=== PATIENT | male | born 1940 | race Caucasian/White ===

== ENCOUNTER 2017-08-23 12:40 | Outpatient (RCR) | payer MEDICARE, OTHER | END 2017-08-24 | disposition home or self-care (01) | LOC: ONC 12:40 | PROVIDERS: ATTEND Radiology Radiation Oncology | DX: Z51.0 Encounter for antineoplastic radiation therapy (principal); C61 Malignant neoplasm of prostate | CPT/HCPCS: 77300; 77301; 77334; 77336; 77338; 77385 ==

== ENCOUNTER 2017-10-16 12:34 | Outpatient (RCR) | payer MEDICARE, OTHER | END 2017-11-24 | disposition home or self-care (01) | LOC: ONC 12:34 | PROVIDERS: ATTEND Radiology Radiation Oncology | DX: Z51.0 Encounter for antineoplastic radiation therapy (principal); C61 Malignant neoplasm of prostate | CPT/HCPCS: 77307; 77334; 77336; 77385 ==

== ENCOUNTER 2019-02-15 12:18 | Emergency (ER) | payer MEDICARE, OTHER ==
[~2019-02-15] VITALS: Ht 175.3 cm; Wt 81.6 kg
--- NOTE | 2019-02-15 12:53 | ED GI ---
General Stated Complaint: VOMITING,DIARRHEA Source of Information: Patient History of Present Illness Date Seen by Provider: Feb 15, 2019 Time Seen by Provider: 12:35 Initial Comments 78-year-old male presents with 2 days of nausea and vomiting with a little bit of diarrhea. He denies abdominal pain. Denies any fevers or chills. He is able to tolerate liquids but reports he vomits up his food. He denies any constipation. Cough or other systemic complaints at this time Allergies and Home Medications Allergies Coded Allergies: No Known Drug Allergies (Unverified , 02/15/19) Patient Home Medication List Home Medication List Reviewed: Yes Review of Systems Review of Systems Constitutional: No chills, No dizziness, No fever EENTM: No Symptoms Reported Respiratory: Denies Cough, Denies Shortness of Air Cardiovascular: Denies Chest Pain, Denies Irregular Heart Rate Gastrointestinal: Denies Abdomen Distended, Denies Abdominal Pain; Diarrhea, Nausea, Vomiting Genitourinary: Denies Burning Musculoskeletal: no symptoms reported Skin: no symptoms reported Past Yponxqx-Qtbfau-Lmawou Hx Past Med/Social Hx: Reviewed Nursing Past Med/Soc Hx Patient Social History Recent Foreign Travel: No (N) Contact w/Someone Who Travel: No (N) Physical Exam Vital Signs Capillary Refill : Height/Weight/BMI Height: '" Weight: lbs. oz. kg; BMI Method: General Appearance: WD/WN, no apparent distress HEENT: normal ENT inspection Neck: non-tender Respiratory: chest non-tender, lungs clear, normal breath sounds Cardiovascular: regular rate, rhythm, no edema Gastrointestinal: non tender, soft Extremities: normal range of motion, non-tender Neurologic/Psychiatric: alert, normal mood/affect, oriented x 3 Progress/Results/Core Measures Results/Orders Lab Results Laboratory Tests Test 02/15/19 12:58 Range/Units White Blood Count 8.4 4.3-11.0 10^3/uL Red Blood Count 4.18 L 4.35-5.85 10^6/uL Hemoglobin 12.9 L 13.3-17.7 G/DL Hematocrit 38 L 40-54 % Mean Corpuscular Volume 92 80-99 FL Mean Corpuscular Hemoglobin 31 25-34 PG Mean Corpuscular Hemoglobin Concent 34 32-36 G/DL Red Cell Distribution Width 13.5 10.0-14.5 % Platelet Count 334 130-400 10^3/uL Mean Platelet Volume 9.5 7.4-10.4 FL Neutrophils (%) (Auto) 80 H 42-75 % Lymphocytes (%) (Auto) 10 L 12-44 % Monocytes (%) (Auto) 7 0-12 % Eosinophils (%) (Auto) 2 0-10 % Basophils (%) (Auto) 0 0-10 % Neutrophils # (Auto) 6.7 1.8-7.8 X 10^3 Lymphocytes # (Auto) 0.9 L 1.0-4.0 X 10^3 Monocytes # (Auto) 0.6 0.0-1.0 X 10^3 Eosinophils # (Auto) 0.2 0.0-0.3 10^3/uL Basophils # (Auto) 0.0 0.0-0.1 10^3/uL Sodium Level 143 135-145 MMOL/L Potassium Level 3.7 3.6-5.0 MMOL/L Chloride Level 98 98-107 MMOL/L Carbon Dioxide Level 24 21-32 MMOL/L Anion Gap 21 H 5-14 MMOL/L Blood Urea Nitrogen 47 H 7-18 MG/DL Creatinine 2.01 H 0.60-1.30 MG/DL Estimat Glomerular Filtration Rate 32 BUN/Creatinine Ratio 23 Glucose Level 114 H 70-105 MG/DL Calcium Level 9.3 8.5-10.1 MG/DL Corrected Calcium 9.2 8.5-10.1 MG/DL Total Bilirubin 0.4 0.1-1.0 MG/DL Aspartate Amino Transf (AST/SGOT) 25 5-34 U/L Alanine Aminotransferase (ALT/SGPT) 26 0-55 U/L Alkaline Phosphatase 83 40-136 U/L Total Protein 7.4 6.4-8.2 GM/DL Albumin 4.1 3.2-4.5 GM/DL Lipase 38 8-78 U/L Micro Results Microbiology 02/15/19 Influenza Types A,B Antigen (ESTRADA) - Final, Complete My Orders Orders - BERNARD QUINN DO Cbc With Automated Diff (02/15/19 12:45) Comprehensive Metabolic Panel (02/15/19 12:45) Lipase (02/15/19 12:45) Influenza A And B Antigens (02/15/19 12:45) Saline Lock/Iv-Start (02/15/19 12:45) Saline Lock/Iv-Start (02/15/19 13:06) Ns Iv 1000 Ml (Sodium Chloride 0.9%) (02/15/19 13:06) Ondansetron Injection (Zofran Injectio (02/15/19 13:15) Ct Abdomen/Pelvis Wo (02/15/19 13:41) Medications Given in ED Current Medications Medications Dose Ordered Sig/[place] Route Start Time Stop Time Status Last Admin Dose Admin Ondansetron HCl 4 mg ONCE ONCE IVP 02/15/19 13:15 02/15/19 13:16 DC 02/15/19 13:13 4 MG Progress Progress Note : Progress Note Reviewed labs and imaging results with patient. Patient was mildly dehydrated and received a liter of fluids and feeling better. Patient with CT that showed some gastric dryness. Discussed findings with him. Recommend a follow-up with his primary care physician in 3 days to ensure he is improving. He should use a clear liquid diet 24 hours and slowly advance diet. He will also be discharged with Zofran for nausea. Patient is discharged home in stable condition. Departure Impression Primary Impression: Gastroenteritis Additional Impressions: Nausea and vomiting Qualified Codes: R11.2 - Nausea with vomiting, unspecified Dehydration Disposition: HOME, SELF-CARE Condition: Stable Departure-Patient Inst. Decision time for Depature: 15:21 Referrals: ANGELA MARTINEZ MD (PCP/Family) Primary Care Physician follow up 2-3 days for recheck of symptoms Patient Instructions: Dehydration, Adult (DC), Gastritis (DC) Add. Discharge Instructions: Clear liquid diet for 24 hours then advance as tolerated. With her primary care physician in 2-3 days for continuation of care and recheck if symptoms Scripts Ondansetron (Ondansetron Odt) 4 Mg Tab.rapdis 4 MG PO Q6H PRN for NAUSEA/VOMITING, #20 TAB Prov: BERNARD QUINN DO 02/15/19 BERNARD QUINN DO Feb 15, 2019 12:53
[2019-02-15 13:06] LABS: WHITE BLOOD COUNT 8.4 10^3/uL (4.3-11.0)
[2019-02-15] MEDS ORDERED: NS IV 1000 ML 1,000 ML IV SCH (13:06)
[2019-02-15 13:07] LABS: BASOPHILS % (AUTO) 0 % (0-10); EOSINOPHILS # (AUTO) 0.2 10^3/uL (0.0-0.3); EOSINOPHILS % (AUTO) 2 % (0-10); HEMATOCRIT 38 % (40-54); HEMOGLOBIN 12.9 G/DL (13.3-17.7); LYMPHOCYTES # (AUTO) 0.9 X 10^3 (1.0-4.0); LYMPHOCYTES % (AUTO) 10 % (12-44); MEAN CORPUSCULAR HEMOGLOBIN 31 PG (25-34); MEAN CORPUSCULAR HGB CONC 34 G/DL (32-36); MEAN CORPUSCULAR VOLUME 92 FL (80-99); MEAN PLATELET VOLUME 9.5 FL (7.4-10.4); MONOCYTES # (AUTO) 0.6 X 10^3 (0.0-1.0); MONOCYTES % (AUTO) 7 % (0-12); NEUTROPHILS # (AUTO) 6.7 X 10^3 (1.8-7.8); NEUTROPHILS % (AUTO) 80 % (42-75); PLATELET COUNT 334 10^3/uL (130-400); RED CELL DISTRIBUTION WIDTH 13.5 % (10.0-14.5)
[2019-02-15] MEDS ORDERED: ONDANSETRON 4 MG/2 ML (SDV) Z0FRAN IVP ONE (13:15)
[2019-02-15 13:28] LABS: CALCIUM 9.3 MG/DL (8.5-10.1); CREATININE SERUM 2.01 MG/DL (0.60-1.30); POTASSIUM 3.7 MMOL/L (3.6-5.0)
[2019-02-15 13:29] LABS: ALBUMIN 4.1 GM/DL (3.2-4.5); BILIRUBIN,TOTAL 0.4 MG/DL (0.1-1.0); TOTAL PROTEIN 7.4 GM/DL (6.4-8.2)
--- NOTE | 2019-02-15 14:35 | Diagnostic Imaging Report ---
PROCEDURE: CT abdomen and pelvis without contrast. TECHNIQUE: Multiple contiguous axial images were obtained through the abdomen and pelvis without the use of intravenous contrast. Auto Exposure Controls were utilized during the CT exam to meet ALARA standards for radiation dose reduction. INDICATION: Nausea, vomiting, diarrhea. COMPARISON: None. FINDINGS: The heart is mildly enlarged. Lung bases are clear. The gallbladder is surgically absent. The liver, spleen, pancreas, adrenal glands are grossly unremarkable. Benign cysts are seen on the right kidney. There is a solid-appearing mass in the inferior pole of the left kidney and medial aspect measuring approximate 12 mm. Recommend postcontrast imaging to exclude neoplasm. This may be done on a nonemergent basis. There is no hydronephrosis or hydroureter. Atherosclerotic disease is seen throughout the abdominal aorta without aneurysm. The appendix is surgically absent. Otherwise, the course and caliber of the large and small bowel is normal. There is some nonspecific thickening of the gastric wall. This could represent gastritis or be secondary to underdistention. There is no inflammatory process. Distal ureters and urinary bladder are normal. There is mild prostate enlargement. Osseous structures are age-appropriate. IMPRESSION: 1. Nonspecific gastric wall thickening. Endoscopic evaluation may be of further value. 2. Questionable solid lesion on the inferior pole of the left kidney. Recommend postcontrast imaging on nonemergent basis. 3. Cardiac enlargement. 4. Surgically absent gallbladder and appendix. 5. Prostate enlargement. Dictated by: Dictated on workstation # [id number]
[2019-02-15] MEDS ORDERED: ONDA4TAB11 PO (15:20)
[2019-02-15 15:45] VITALS: BP 150/77
[2019-02-19] MEDS ORDERED: METO-370 PO (14:08)
[2019-02-19] MEDS ORDERED: LOSA100T57 PO (14:08)
== END 2019-02-15 15:45 | disposition home or self-care (01) ==
LOC: EDUNIT# 12:18 → ER FS 12:20
DX: K52.9 Noninfective gastroenteritis and colitis, unspecified (principal); E86.0 Dehydration
CPT/HCPCS: 36415; 74176; 80053; 83690; 85025; 87804; 96361; 96374

== ENCOUNTER 2019-02-17 15:58 | Inpatient (IN) | payer MEDICARE, OTHER ==
[~2019-02-17] VITALS: Ht 175.3 cm; Wt 86.2 kg
[~2019-02-17 15:58] MED LIST: ONDA4TAB11 PO
[2019-02-17 16:19] VITALS: BP 149/82
[2019-02-17 16:27] VITALS: BP_SYST 123; BP_SYST 135; BP_DIAS 66; BP_DIAS 83
--- NOTE | 2019-02-17 16:27 | ED General ---
General Chief Complaint: Trauma-Non Activation Stated Complaint: PT FELL, FACE LAC Nursing Triage Note: Patient reports falls and dizziness when moving from a sitting to standing position for 2 weeks. He reports nausea and vomiting over the weekend, states he was seen in this ED, then had a follow up appointment with his PCP today. He fell once while at the appointment, then again when he arrived at home. He reports pain in his right rib cage and right knee. Multiple shallow abrasions to face. Nursing Sepsis Screen: No Definite Risk History of Present Illness Date Seen by Provider: Feb 17, 2019 Time Seen by Provider: 16:05 Initial Comments Patient is a 78-year-old male with past medical history significant for high blood pressure and well-controlled seizures. He presents to the emergency department today complaining of a fall. The patient states he was walking towards his apartment complex when he began to medially felt lightheaded and fell striking his face on the ground. He did not have complete loss of consciousness. He denied palpitations or chest pain or shortness of breath prior to the incident. The patient states he has been falling frequently over the last 2 weeks. Symptoms started suddenly. He was evaluated in this emergency room a few days earlier for the same complaint and was discharged to home. He continued to fall so he was seen by his primary doctor, Dr. Martinez, earlier today. The patient states he was prescribed some unknown medication. He fell again on his way back home so he decided to return to the emergency room. He denies recent illness or fever. No cough. No chest pain, palpitations, shortness of breath. He does have a known prior history of seizures for which he takes Tegretol. His last seizure was over 12 years ago. Patient reports compliance with all medications. He does not use tobacco. He drinks wine occasionally. During the fall today, the patient did strike his face. He did not lose consciousness. He sustained some minor abrasions about the face. He is uncertain when his last tetanus shot was. Denies nausea or vomiting. No vision changes. Denies cervical neck tenderness. He is accompanied by his apartment pretty food service manager today. She has not witnessed the fall but did find him shortly after a fall and states he seemed confused for a period of a couple of minutes following the incident. It is uncertain if the patient is actually having seizures or not but it does not sound that he is having any prolonged post ictal period. Allergies and Home Medications Allergies Coded Allergies: No Known Drug Allergies (Unverified , 02/15/19) Home Medications Ondansetron 4 Mg Tab.rapdis, 4 MG PO Q6H PRN for NAUSEA/VOMITING Prescribed by: BERNARD QUINN on 02/15/19 1520 Patient Home Medication List Home Medication List Reviewed: Yes Review of Systems Review of Systems Constitutional: no symptoms reported, see HPI EENTM: no symptoms reported, other (abrasions to face documented above) Respiratory: no symptoms reported Cardiovascular: no symptoms reported Gastrointestinal: no symptoms reported Musculoskeletal: no symptoms reported Skin: no symptoms reported Psychiatric/Neurological: See HPI, Other (syncope) Hematologic/Lymphatic: No Symptoms Reported All Other Systems Reviewed Negative Unless Noted: Yes Past Ogbkzno-Bjrkyo-Qgeabi Hx Patient Social History 2nd Hand Smoke Exposure: No Recent Foreign Travel: No Contact w/Someone Who Travel: No Recent Infectious Disease Expo: No Physical Exam Vital Signs Vital Signs - First Documented 02/17/19 16:14 Temp 98.9 Pulse 79 Resp 18 B/P (MAP) 114/79 (91) Pulse Ox 94 O2 Delivery Room Air Capillary Refill : Less Than 3 Seconds Height, Weight, BMI Height: 5'9.00" Weight: 180lbs. oz. 81.866683wc; BMI Method:Stated General Appearance: No Apparent Distress, WD/WN HEENT: PERRL/EOMI, TMs Normal, Other (abrasions about the exterior side of the nose. No deviation of septum. No septal hematoma) Neck: Full Range of Motion, Normal Inspection, Non Tender, Supple Respiratory: Chest Non Tender, Lungs Clear, Normal Breath Sounds, No Accessory Muscle Use, No Respiratory Distress Cardiovascular: Regular Rate, Rhythm, Other (faint 4/6 systolic ejection murmur heard best at the left sternal border) Gastrointestinal: Normal Bowel Sounds, Soft Back: No Vertebral Tenderness Extremity: Normal Capillary Refill, Normal Inspection, Normal Range of Motion Neurologic/Psychiatric: Alert, Oriented x3, No Motor/Sensory Deficits, Normal Mood/Affect, security program manager II-XII Norm as Tested Skin: Normal Color Progress/Results/Core Measures Suspected Sepsis Recent Fever Within 48 Hours: No Infection Criteria Present: None New/Unexplained Altered Menta: No Sepsis Screen: No Definite Risk SIRS Temperature:98.9 Pulse: 79 Respiratory Rate: 18 Laboratory Tests 02/17/19 16:17: White Blood Count 8.6 Blood Pressure 114 /79 Mean: 91 Laboratory Tests 02/17/19 16:17: Creatinine 1.85H, Platelet Count 332 Results/Orders Lab Results Laboratory Tests Test 02/17/19 16:17 Range/Units White Blood Count 8.6 4.3-11.0 10^3/uL Red Blood Count 3.92 L 4.35-5.85 10^6/uL Hemoglobin 12.1 L 13.3-17.7 G/DL Hematocrit 36 L 40-54 % Mean Corpuscular Volume 91 80-99 FL Mean Corpuscular Hemoglobin 31 25-34 PG Mean Corpuscular Hemoglobin Concent 34 32-36 G/DL Red Cell Distribution Width 13.2 10.0-14.5 % Platelet Count 332 130-400 10^3/uL Mean Platelet Volume 9.7 7.4-10.4 FL Neutrophils (%) (Auto) 94 H 42-75 % Lymphocytes (%) (Auto) 7 L 12-44 % Monocytes (%) (Auto) 6 0-12 % Eosinophils (%) (Auto) 2 0-10 % Basophils (%) (Auto) 0 0-10 % Neutrophils # (Auto) 7.2 1.8-7.8 X 10^3 Lymphocytes # (Auto) 0.6 L 1.0-4.0 X 10^3 Monocytes # (Auto) 0.6 0.0-1.0 X 10^3 Eosinophils # (Auto) 0.2 0.0-0.3 10^3/uL Basophils # (Auto) 0.0 0.0-0.1 10^3/uL Neutrophils % (Manual) 80 % Lymphocytes % (Manual) 7 % Monocytes % (Manual) 5 % Eosinophils % (Manual) 2 % Basophils % (Manual) 1 % Band Neutrophils 5 % Blood Morphology Comment NORMAL Sodium Level 140 135-145 MMOL/L Potassium Level 3.4 L 3.6-5.0 MMOL/L Chloride Level 98 98-107 MMOL/L Carbon Dioxide Level 18 L 21-32 MMOL/L Anion Gap 24 H 5-14 MMOL/L Blood Urea Nitrogen 35 H 7-18 MG/DL Creatinine 1.85 H 0.60-1.30 MG/DL Estimat Glomerular Filtration Rate 35 BUN/Creatinine Ratio 19 Glucose Level 103 70-105 MG/DL Calcium Level 9.0 8.5-10.1 MG/DL Troponin T 43 H <=15 NG/L My Orders Orders - DEV MCCLAIN DO Ct Head/Cervical Spine Wo (02/17/19 16:02) Saline Lock/Iv-Start (02/17/19 16:17) Cbc And Manual Diff (02/17/19 16:17) Basic Metabolic Panel (02/17/19 16:17) Troponin T (02/17/19 16:17) Ekg Tracing (02/17/19 16:17) Urinalysis (02/17/19 16:17) Orthostatic Vital Signs (Adult (02/17/19 16:20) Dipht,Pertuss(Acell),Tet Adult (Boostrix (02/17/19 16:30) Carbamazepine (Tegretol) (02/17/19 16:17) Thyroid Stimulating Hormone (02/17/19 16:17) Ns Iv 1000 Ml (Sodium Chloride 0.9%) (02/17/19 17:00) Medications Given in ED Current Medications Medications Dose Ordered Sig/[place] Route Start Time Stop Time Status Last Admin Dose Admin Diphtheria/ Tetanus/Acell Pertussis 0.5 ml ONCE ONCE IM 02/17/19 16:30 02/17/19 16:31 DC 02/17/19 16:45 0.5 ML Vital Signs/I&O 02/17/19 02/17/19 02/17/19 02/17/19 16:14 16:19 16:19 16:27 Temp 98.9 98.9 Pulse 79 79 59 61 63 Resp 18 16 B/P (MAP) 114/79 (91) 114/79 (91) 149/82 (104) 135/83 (100) 123/66 (85) Pulse Ox 94 94 O2 Delivery Room Air Room Air Capillary Refill : Less Than 3 Seconds Blood Pressure Mean: 91 Progress Note : Time: 16:29 Progress Note Patient is seen and examined in the ER. He is uncertain when his last tetanus shot was. His neurologic exam is normal. Orthostatics are completed and the patient is not orthostatic. Unclear cause for his near syncopal episodes and falls. He has presented to care 3 times in the last week for this complaint. He does have a faint murmur on physical exam but otherwise unremarkable examination. Today, we will do EKG, basic labs, urinalysis. TSH and Tegretol levels will be collected but these will need to be sent to the main hospital laboratory. Did not anticipate discharge home for this patient. He should be admitted for observation on telemetry and possible echocardiogram and/or cardiology consultation. I fear he will sustain further injury from falling if he is discharged from the ER. 17:15: CT scan is returned. There are no acute findings. Patient was given tetanus shot in the ER. I did speak to Dr. Webber in [place] who agreed to accept this patient for inpatient evaluation. Plan is to transfer via EMS. Patient remained very stable during the ER course with normal range vital signs. Patient was agreeable to the plan of care including transfer. ECG Initial ECG Impression Date: Feb 17, 2019 Initial ECG Impression Time: 16:30 Initial ECG Rate: 59 Initial ECG Rhythm: S.Jd Initial ECG Intervals: Normal Initial ECG Impression: Normal Diagnostic Imaging Diagonstic Imaging: CT Comments INDICATION: Falls. COMPARISON: No prior studies are available for comparison. CT head: FINDINGS: Ventricles and sulci are appropriate for the patient's age. No sulcal effacement, midline shift, or hemorrhage is detected. Cisterns are patent. Visualized paranasal sinuses are clear. IMPRESSION: No acute intracranial process is detected. CT cervical spine: FINDINGS: Curvature and alignment is normal. There is degenerative disc disease at the C4-C5 and C5-C6 levels with disc space narrowing and marginal spurring. No fractures are seen. Prevertebral tissues are within normal limits. The odontoid is intact. IMPRESSION: Cervical spondylosis. No acute bony abnormality is detected. Departure Communication (Admissions) Time/Spoke to Admitting Phy: 16:35 Dr. Webber Impression Primary Impression: Recurrent syncope Disposition: XFER SHT-TRM HOSP Condition: Stable Admissions Decision to Admit Reason: Admit from ER (General) Decision to Admit/Date: Feb 17, 2019 Time/Decision to Admit Time: 17:14 Transfer Time Spoke to Accepting Phy: 16:35 (Dr. Webber) Transfer Time: 17:30 Method of Transfer: EMS Departure-Patient Inst. Referrals: ANGELA MARTINEZ MD (PCP/Family) Primary Care Physician DEV MCCLAIN DO Feb 17, 2019 16:27
[2019-02-17 16:28] LABS: BASOPHILS % (AUTO) 0 % (0-10); EOSINOPHILS # (AUTO) 0.2 10^3/uL (0.0-0.3); EOSINOPHILS % (AUTO) 2 % (0-10); HEMATOCRIT 36 % (40-54); HEMOGLOBIN 12.1 G/DL (13.3-17.7); LYMPHOCYTES # (AUTO) 0.6 X 10^3 (1.0-4.0); LYMPHOCYTES % (AUTO) 7 % (12-44); MEAN CORPUSCULAR HEMOGLOBIN 31 PG (25-34); MEAN CORPUSCULAR HGB CONC 34 G/DL (32-36); MEAN CORPUSCULAR VOLUME 91 FL (80-99); MEAN PLATELET VOLUME 9.7 FL (7.4-10.4); MONOCYTES # (AUTO) 0.6 X 10^3 (0.0-1.0); MONOCYTES % (AUTO) 6 % (0-12); NEUTROPHILS # (AUTO) 7.2 X 10^3 (1.8-7.8); NEUTROPHILS % (AUTO) 94 % (42-75); PLATELET COUNT 332 10^3/uL (130-400); RED CELL DISTRIBUTION WIDTH 13.2 % (10.0-14.5); WHITE BLOOD COUNT 8.6 10^3/uL (4.3-11.0)
[2019-02-17] MEDS ORDERED: TETANUS,DIPTH,PERTUSS P/F (BOOSTRIX) 0.5 ML VIAL IM ONE (16:30)
[2019-02-17 16:44] LABS: BAND NEUTROPHILS 5 %; BASOPHILS % (MANUAL) 1 %; EOSINOPHILS % (MANUAL) 2 %; LYMPHOCYTES % (MANUAL) 7 %; MONOCYTES % (MANUAL) 5 %; NEUTROPHILS % (MANUAL) 80 %; RBC MORPH NORMAL
[2019-02-17 16:45] LABS: CREATININE SERUM 1.85 MG/DL (0.60-1.30); POTASSIUM 3.4 MMOL/L (3.6-5.0)
[2019-02-17] MEDS ORDERED: NS IV 1000 ML 1,000 ML IV SCH (17:00)
--- NOTE | 2019-02-17 17:02 | Diagnostic Imaging Report ---
PROCEDURE: CT head and CT cervical spine without contrast. TECHNIQUE: Multiple contiguous axial images were obtained through the brain and cervical spine without the use of intravenous contrast. Sagittal and coronal reformations through the cervical spine were then performed. Auto Exposure Controls were utilized during the CT exam to meet ALARA standards for radiation dose reduction. INDICATION: Falls. COMPARISON: No prior studies are available for comparison. CT head: FINDINGS: Ventricles and sulci are appropriate for the patient's age. No sulcal effacement, midline shift, or hemorrhage is detected. Cisterns are patent. Visualized paranasal sinuses are clear. IMPRESSION: No acute intracranial process is detected. CT cervical spine: FINDINGS: Curvature and alignment is normal. There is degenerative disc disease at the C4-C5 and C5-C6 levels with disc space narrowing and marginal spurring. No fractures are seen. Prevertebral tissues are within normal limits. The odontoid is intact. IMPRESSION: Cervical spondylosis. No acute bony abnormality is detected. Dictated by: Dictated on workstation # [id number]
[2019-02-17] MEDS ORDERED: HEParin DRIP 25000 UNIT/500ML 500 ML IV ONE (17:17)
[2019-02-17] MEDS ORDERED: HEParin 1000 UNIT/ML (10ML VIAL) FOR BOLUS IV ONE (17:17)
[2019-02-17] MEDS ORDERED: ASPIRIN 81 MG CHEW (CHILDREN'S ASA) PO ONE (17:30)
[2019-02-17 17:43] LABS: PROTHROMBIN TIME PATIENT 13.2 SEC (12.2-14.7)
[2019-02-17 18:35] VITALS: BP 168/78
--- NOTE | 2019-02-17 18:40 | NUR ---
BERNARDA MUNOZ admitted to room 416-1, with an admitting diagnosis of RECURRENT SYNCOPE, on 02/17/19 from ED via , accompanied by STAFF.BERNARDA MUNOZ introduced to surroundings, call light, bed controls, phone, TV, temperature control, lights, meal times, smoking policy, visitor policy, side rail policy, bathrooms and showers. Patient Rights given to patient in the handbook. BERNARDA MUNOZ verbalizes understanding that [facility] is not responsible for the loss or damage to any personal effects or valuables that are kept in the patients possession during their hospitalization. PLANS OF CARE DISCUSSED WITH PT AND VERBALIZES UNDERSTANDING. BERNARDA MUNOZ verbalizes understanding of Interdisciplinary Patient Education. Patient and/or family were informed about the Rapid Response Team and its purpose.
[2019-02-17 18:45] VITALS: BP 168/78
[2019-02-17] MEDS ORDERED: CATHETER FLUSH 10 ML SYR IV PRN (19:00)
[2019-02-17 19:15] LABS: CARBAMAZEPINE (TEGRETOL) 11.6 UG/ML (4.0-12.0)
[2019-02-17] MEDS: NS IV 1000 ML 1,000 ML IV SCH (20:43)
[2019-02-17] MEDS: LABETALOL 200 MG (NORMODYNE) TAB PO SCH (20:43)
[2019-02-18 00:50] VITALS: BP 160/68
[2019-02-18 04:53] LABS: ALBUMIN 3.6 GM/DL (3.2-4.5); BILIRUBIN,TOTAL 0.3 MG/DL (0.1-1.0); CALCIUM 8.4 MG/DL (8.5-10.1); CREATININE SERUM 1.62 MG/DL (0.60-1.30); POTASSIUM 2.9 MMOL/L (3.6-5.0)
[2019-02-18 08:00] VITALS: BP 207/83
[2019-02-18] MEDS: LABETALOL 200 MG (NORMODYNE) TAB PO SCH (08:15)
[2019-02-18] MEDS: NS IV 1000 ML 1,000 ML IV SCH (08:15)
[2019-02-18] MEDS ORDERED: amLODIPine 5 MG (NORVASC) TAB PO SCH (09:00)
[2019-02-18] MEDS ORDERED: HYDROCHLOROTHIAZIDE 25 MG (HCTZ) TAB PO SCH (09:00)
[2019-02-18] MEDS ORDERED: AMLO10TA4 PO (09:35)
[2019-02-18] MEDS ORDERED: L.AC1CAP6 PO (09:35)
[2019-02-18] MEDS ORDERED: DOXA8TAB73 PO (09:35)
[2019-02-18] MEDS ORDERED: MULT-974 PO (09:35)
[2019-02-18] MEDS ORDERED: CYAN10006 PO (09:35)
[2019-02-18] MEDS ORDERED: DOXA2TAB2 PO (09:35)
[2019-02-18] MEDS ORDERED: CARB100T6 PO (09:35)
[2019-02-18] MEDS ORDERED: LABE200T7 PO (09:35)
[2019-02-18] MEDS ORDERED: CARB400T PO (09:35)
[2019-02-18] MEDS ORDERED: HYDR50TA3 PO (09:35)
--- NOTE | 2019-02-18 09:40 | NUR ---
SPOKE WITH THE PATIENT ABOUT HIS MEDICATIONS. HE LISTED WHAT HE IS TAKING AND THE STRENGTHS. I CALLED NANCY GARCIA TO VERIFY WHAT HAS BEEN FILLED RECENTLY. NANCY GARCIA FILLED: 3 DOXAZOSIN 2MG DAILY #100 (TAKES AT HS) 01-24-19 DOXAZOSIN 8MG DAILY #90 (TAKES AT HS) -02-10 AMLODIPINE 10MG DAILY #90 (TAKES IN THE EVENING) 12-13-18 HCTZ 50MG DAILY #90 11-15-18 LABETALOL 200MG BID #180 08-12-18 TEGRETOL 100MG CHEW DAILY #180 (TAKES AT NOON) HE ALSO STATES HE TAKES TEGRETOL 400MG BID, HE GETS THESE FROM [facility]. HE TAKES THE FOLLOWING OTC: MTV DAILY PROBIOTIC DAILY B12 AT NOON
--- NOTE | 2019-02-18 09:48 | Consultation-Cardiology ---
HPI-Cardiology Cardiology Consultation Date of Consultation 02/18/19 Date of Admission Time Seen by Provider: 08:20 Indication: Syncope HPI Patient is an 78 year old male with history of HTN, seizure disorder. Presented to the ER in [place] with complaints of syncope. Reports he was getting out of his car yesterday and walking to his apartment when he had syncopal episode. Denies any chest pain or dyspnea. Associated dizziness and lightheadedness lasting seconds prior to syncope. Reports has been having multiple syncopal episodes over the last month and over the past week has been having syncope once or twice per day. Episodes mainly occur while standing, but does report at least one syncopal episode while sitting in chair. Has history of seizure disorder and follows with neurology in [place]. States no recent seizure activity. Noted to be bradycardic in ER, was asymptomatic at the time. Troponin I negative. No other complaints at this time. Home Medications & Allergies Allergies: Coded Allergies: No Known Drug Allergies (Unverified , 02/15/19) Home Medication List Reviewed: Yes EAE-Oheosp-Fejnjf Hx Patient Social History Marital Status: Employed/Student: retired Alcohol Use: Regular Use Recreational Drug Use: No Smoking Status: Former Smoker 2nd Hand Smoke Exposure: No Recent Foreign Travel: No Recent Infectious Disease Expo: No Recent Hopitalizations: No Immunizations Up To Date Date of Influenza Vaccine: Dec 20, 2018 Past Medical History HTN Family Medical History Significant Family History: No Pertinent Family Hx Review of Systems Constitutional: No chills, No diaphoresis; dizziness, weakness EENTM: No hearing loss, No ear pain, No blurred vision, No double vision Respiratory: No cough, No dyspnea on exertion Cardiovascular: No chest pain, No edema, No palpitations; syncope Gastrointestinal: No abdominal pain, No constipation, No diarrhea Genitourinary: No dysuria, No frequency, No hematuria Musculoskeletal: No back pain, No joint pain Skin: No lesions, No rash Psychiatric/Neurological: Denies Anxiety, Denies Depressed Reviewed Test Results Reviewed Test Results Lab Laboratory Tests 02/17/19 16:17: White Blood Count 8.6, Red Blood Count 3.92L, Hemoglobin 12.1L, Hematocrit 36L, Mean Corpuscular Volume 91, Mean Corpuscular Hemoglobin 31, Mean Corpuscular Hemoglobin Concent 34, Red Cell Distribution Width 13.2, Platelet Count 332, Mean Platelet Volume 9.7, Neutrophils (%) (Auto) 94H, Lymphocytes (%) (Auto) 7L , Monocytes (%) (Auto) 6, Eosinophils (%) (Auto) 2, Basophils (%) (Auto) 0, Neutrophils # (Auto) 7.2, Lymphocytes # (Auto) 0.6L, Monocytes # (Auto) 0.6, Eosinophils # (Auto) 0.2, Basophils # (Auto) 0.0, Neutrophils % (Manual) 80, Lymphocytes % (Manual) 7, Monocytes % (Manual) 5, Eosinophils % (Manual) 2, Basophils % (Manual) 1, Band Neutrophils 5, Blood Morphology Comment NORMAL, Prothrombin Time 13.2, INR Comment 1.0, Activated Partial Thromboplast Time 30, Sodium Level 140, Potassium Level 3.4L, Chloride Level 98, Carbon Dioxide Level 18L, Anion Gap 24H, Blood Urea Nitrogen 35H, Creatinine 1.85H, Estimat Glomerular Filtration Rate 35, BUN/Creatinine Ratio 19, Glucose Level 103, Calcium Level 9.0, Troponin T 43H, Thyroid Stimulating Hormone (TSH) 1.66, Carbamazepine (Tegretol) Level 11.6 02/17/19 20:25: Troponin I < 0.028 02/18/19 04:00: Sodium Level 143, Potassium Level 2.9L, Chloride Level 106, Carbon Dioxide Level 23, Anion Gap 14, Blood Urea Nitrogen 29H, Creatinine 1.62H, Estimat Glomerular Filtration Rate 41, BUN/Creatinine Ratio 18, Glucose Level 93, Calcium Level 8.4L, Troponin I < 0.028, Corrected Calcium 8.7, Total Bilirubin 0.3, Aspartate Amino Transf (AST/SGOT) 31, Alanine Aminotransferase (ALT/SGPT) 41, Alkaline Phosphatase 76, Total Protein 6.0L, Albumin 3.6 ECG Impression ECG Initial ECG Rhythm: S.Jd Physical Exam Vital Signs Vital Signs - First Documented 02/17/19 16:14 Temp 98.9 Pulse 79 Resp 18 B/P (MAP) 114/79 (91) Pulse Ox 94 O2 Delivery Room Air Capillary Refill : Less Than 3 Seconds Height, Weight, BMI Height: 5'9.00" Weight: 190lbs. 0.7oz. [id number]; 28.1 BMI Method:Stated General Appearance: No Apparent Distress, WD/WN HEENT: PERRL/EOMI, Normal ENT Inspection Neck: Full Range of Motion, Normal Inspection, Non Tender, Supple, Carotid Bruit Respiratory: Chest Non Tender, Lungs Clear, Normal Breath Sounds, No Accessory Muscle Use, No Respiratory Distress Cardiovascular: No Edema, No Gallop, No JVD, Bradycardia, Systolic Murmur Gastrointestinal: Non Tender, Soft Rectal: Deferred Back: No CVA Tenderness Extremity: Non Tender, No Calf Tenderness Neurologic/Psychiatric: Alert, Oriented x3, doctor of podiatric medicine II-XII Norm as Tested A/P-Cardiology Admission Diagnosis Syncope Sinus bradycardia HTN Systolic murmur Assessment/Plan Syncope- unknown etiology, most probably hypotensive episode. Has been having multiple syncopal episodes over the past month. Noted to be bradycardic, asymptomatic at this time. I will place patient on telemetry. Further evaluation with 2D Echo, carotid duplex. Continue to monitor. Sinus bradycardia- on labetolol, I am stopping labetalol and starting Toprol-XL 50 mg daily and monitoring tolerance and response Hypertension, I will discontinue amlodipine and hydrochlorothiazide and use losartan 50 mg daily and evaluate tolerance and response. Systolic murmur- further evaluation with 2D Echo History of Seizure disorder- follows with Neurologist in [place]. Maintained on Tegretol as outpatient Hypokalemia- replace and monitor. Recent gastroenteritis History of cholecystectomy, appendectomy. Mildly elevated Troponin T, Troponin I negative. Thank you for allowing us to participate in the management of Mr. Tran. This is Ria Lima PA-C as a scribe for Dr. Shultz. Patient was seen and evaluated with Ria, in summary this is an 78 years old gentleman with history of hypertension, on multiple medication, had history of seizure disorder, had multiple syncopal episodes. Most probably hypotensive episodes. Occurred mainly while he standing up. He is in sinus bradycardia, on examination lungs were clear to auscultation heart is bradycardic with systolic murmur at the left sternal border. I discussed the management plan with Ria, agree with the current scribed note, interviewed the patient and examined him. I will discontinue labetalol, amlodipine and hydrochlorothiazide and I am starting him on Toprol-XL 50 mg daily and losartan 50 mg daily and monitor tolerance and response. Avoid amlodipine and hydrochlorothiazide. Replace potassium. Monitor electrolytes. Has history of seizure disorder which will be monitored Clinical Quality Measures DVT/VTE Risk/Contraindication: Risk Factor Score Per Nursin RFS Level Per Nursing on Admit: 2=Moderate RIA TELLEZ Feb 18, 2019 09:48 YAJAIRA SHULTZ MD Feb 18, 2019 16:16
[2019-02-18 12:00] VITALS: BP 190/80
[2019-02-18] MEDS ORDERED: KCL 20 MEQ TAB (K-DUR) PO NR (12:00)
--- NOTE | 2019-02-18 12:02 | History & Physical-Hospitalist ---
History of Present Illness HPI/Chief Complaint The patient is an 78-year-old white male sent from the [place] via [facility] emergency room after repeated episodes of near syncope and falls. He had been seen at the ER in [place] once prior to the date of admission. On the date of admission he was also seen by his primary doctor, Dr. Muñoz, he has had a seizure disorder and states that he has not had a seizure in 12-15 years. When asked about the nature of his seizures he denied any previous tonic clonic Events or postictal states. He had also fallen several times which were not reported. He states that to his recollection he had always fallen within 20 feet before standing up. He did not report any events while in bed or sitting. His is in a fpc in [place] because of advanced dementia. His primary activities were visiting her. He has been able to drive without event. On the last fall causing him to return to the emergency room he fell on concrete and suffered multiple abrasions his forehead. CT head and neck and other x-rays were performed at the emergency room. He also has been hypertensive for 20 or more years. Date Seen 02/18/19 Time Seen by a Provider: 11:55 Attending Physician Krys Webber MD PCP Alfredo Muñoz MD Referring Physician Date of Admission Feb 17, 2019 at 16:50 Home Medications & Allergies Home Medications Reviewed patient Home Medication Reconciliation performed by pharmacy medication reconciliations records technician and/or nursing. Patients Allergies have been reviewed. Allergies Allergies Coded Allergies No Known Drug Allergies (Unverified02/15/19) Past Dqtslkq-Wkpxos-Pramzn Hx Past Med/Social Hx: Reviewed Nursing Past Med/Soc Hx Patient Social History Marrital Status: Employed/Student: retired Alcohol Use: Regular Use Number of Drinks Today: 1 Alcohol Beverage of Choice: Wine Recreational Drug Use: No Smoking Status: Former Smoker 2nd Hand Smoke Exposure: No Recent Foreign Travel: No Contact w/other who traveled: No Recent Hopitalizations: No Recent Infectious Disease Expo: No Immunizations Up To Date Date of Influenza Vaccine: Dec 20, 2018 Seasonal Allergies Seasonal Allergies: No Past Medical History Surgeries: Appendectomy, Gallbladder Cardiac: Hypertension Neurological: Seizure Disorder History of Blood Disorders: No Family History No Pertinent Family Hx Review of Systems Constitutional: see HPI EENTM: no symptoms reported Respiratory: no symptoms reported Cardiovascular: no symptoms reported Genitourinary: no symptoms reported Musculoskeletal: see HPI Skin: see HPI Psychiatric/Neurological: No Symptoms Reported Physical Exam Physical Exam Vital Signs Vital Signs - First Documented 02/17/19 16:14 Temp 98.9 Pulse 79 Resp 18 B/P (MAP) 114/79 (91) Pulse Ox 94 O2 Delivery Room Air Capillary Refill : Less Than 3 Seconds Height, Weight, BMI Height: 5'9.00" Weight: 190lbs. 0.7oz. 86.045465dt; 28.1 BMI Method:Stated General Appearance: No Apparent Distress, WD/WN Eyes: Bilateral Eye Normal Inspection HEENT: Normal ENT Inspection Neck: Normal Inspection Respiratory: Chest Non Tender, Lungs Clear, Normal Breath Sounds, No Accessory Muscle Use, No Respiratory Distress Cardiovascular: Regular Rate, Rhythm, No Edema, No Gallop, No JVD, No Murmur, Normal Peripheral Pulses Gastrointestinal: Normal Bowel Sounds, No Organomegaly, No Pulsatile Mass, Non Tender, Soft Back: Normal Inspection Extremity: Normal Capillary Refill, Normal Inspection, Normal Range of Motion, Non Tender, No Calf Tenderness, No Pedal Edema Neurologic/Psychiatric: Alert, Oriented x3, No Motor/Sensory Deficits, Normal Mood/Affect Skin: Normal Color, Warm/Dry Lymphatic: No Adenopathy Results Results/Procedures Labs Laboratory Tests 02/17/19 16:17 02/18/19 04:00 Patient resulted labs reviewed. Assessment/Plan Admission Diagnosis Syncope. 2.multiple falls. 3.hypertension. 4.history of seizure disorder. 5.possible orthostatic hypotension Admission Status: Observation Assessment and Plan Orthostatics. Replace potassium. View telemetry's. Cardiology consult. Clinical Quality Measures DVT/VTE Risk/Contraindication: Risk Factor Score Per Nursin RFS Level Per Nursing on Admit: 2=Moderate REFUGIO WALTERS MD Feb 18, 2019 12:02
[2019-02-18] MEDS ORDERED: carBAMazepine 100 MG (TEGretol) CHEW PO SCH (12:15)
[2019-02-18] MEDS: POTASSIUM CL 10MEQ/50ML IVPB 50 ML IV SCH ×4 (15:32→17:48)
--- NOTE | 2019-02-18 15:57 | Diagnostic Imaging Report ---
PROCEDURE: US carotid duplex bilateral. TECHNIQUE: Multiple Real-time grayscale images were obtained over the carotid arteries in various projections bilaterally. Additional spectral analysis and color Doppler duplex images were also obtained. INDICATION: Syncope and carotid bruit. FINDINGS: There is mild plaquing in the proximal right ICA as well as the bilateral proximal ECAs. No significant velocity elevation is seen. No high-grade stenosis or occlusion is identified. Both vertebral arteries demonstrate antegrade flow. IMPRESSION: No evidence of a hemodynamically significant stenosis. MEASUREMENTS: Parameters based on the consensus panel Douglass-Scale and Doppler ultrasound criteria published September 2003, Radiology, Volume 229. DOPPLER (peak systolic velocity M/S Right Left CCA 64 66.5 ICA Proximal 107 73.9 ICA Mid 62.1 71.4 ICA Distal 79.3 49.7 RATIO 1.67 1.11 ECA 89.9 93.8 VERT 37.2 32.9 Dictated by: Dictated on workstation # [id number]
[2019-02-18 15:59] VITALS: BP 197/88
[2019-02-18] MEDS: KCL 20 MEQ TAB (K-DUR) PO SCH (17:48)
[2019-02-18] MEDS ORDERED: amLODIPine 10 MG (NORVASC) TAB PO SCH (18:00)
[2019-02-18 19:39] VITALS: BP 192/93
[2019-02-18] MEDS: carBAMazepine 200 MG (TEGretol) TAB PO SCH (20:29)
[2019-02-18] MEDS ORDERED: doxAzosin 2 MG (CARDURA) TAB PO SCH (21:00)
[2019-02-18] MEDS ORDERED: LABETALOL 200 MG (NORMODYNE) TAB PO SCH (21:00)
[2019-02-18] MEDS ORDERED: doxAzosin 4 MG (CARDURA) TAB PO SCH (21:00)
[2019-02-19] VITALS: BP_SYST 158; BP_SYST 184; BP_SYST 192; BP_SYST 198; BP_DIAS 67; BP_DIAS 78; BP_DIAS 85; BP_DIAS 87
[2019-02-19] MEDS: NS IV 1000 ML 1,000 ML IV SCH ×2 (02:46→10:52)
[2019-02-19 04:00] VITALS: BP 188/86
[2019-02-19 05:58] LABS: HEMOGLOBIN 11.8 G/DL (13.3-17.7); MEAN PLATELET VOLUME 9.9 FL (7.4-10.4); RED CELL DISTRIBUTION WIDTH 13.6 % (10.0-14.5); WHITE BLOOD COUNT 8.5 10^3/uL (4.3-11.0)
[2019-02-19] MEDS: KCL 20 MEQ TAB (K-DUR) PO SCH (06:17)
[2019-02-19 06:27] LABS: ALBUMIN 3.6 GM/DL (3.2-4.5); BILIRUBIN,TOTAL 0.3 MG/DL (0.1-1.0); CALCIUM 8.8 MG/DL (8.5-10.1); CREATININE SERUM 1.24 MG/DL (0.60-1.30); MAGNESIUM 1.8 MG/DL (1.8-2.4); POTASSIUM 3.6 MMOL/L (3.6-5.0); TOTAL PROTEIN 6.5 GM/DL (6.4-8.2)
[2019-02-19] MEDS ORDERED: MULTIVIT W/MINERALS TAB (THERAGRAN M) PO SCH (07:00)
--- NOTE | 2019-02-19 07:53 | Cardiology Progress Note ---
Subjective Date Seen by Provider: Feb 19, 2019 Time Seen by Provider: 07:51 Subjective/Events-last exam patient is laying down in bed, still having pain from multiple falls and injury to his chest. Review of Systems General: No Chills, No Night Sweats, No Fatigue, No Malaise, No Appetite, No Other HEENT: No Head Aches, No Visual Changes, No Eye Pain, No Ear Pain, No Dysphasia , No Sinus Congestion, No Post Nasal Drip, No Sore Throat, No Other Pulmonary: No Dyspnea, No Cough, No Pleuritic Chest Pain, No Other Cardiovascular: Chest Pain; No: Palpitations, Orthopnea, Paroxysmal Noc. Dyspnea, Edema, Lt Headedness, Other Objective-Cardiology Exam Last Set of Vital Signs Vital Signs 02/19/19 04:00 Temp 98.6 Pulse 60 Resp 16 B/P (MAP) 188/86 (120) Pulse Ox 95 O2 Delivery Room Air Capillary Refill : Less Than 3 Seconds I&O Intake and Output 02/19/19 00:00 Intake Total 975 ml Output Total 1450 ml Balance -475 ml Intake Oral 775 ml IV Total 200 ml Output Urine Total 1450 ml # Voids 1 General: Alert, Oriented X3, Cooperative HEENT: Atraumatic, PERRLA Neck: Supple, No JVD, No Thyromegaly Lungs: Clear to Auscultation, Normal Air Movement Heart: Regular Rate, Normal S1, Normal S2, No Murmurs Abdomen: Normal Bowel Sounds, Soft, No Tenderness, No Hepatosplenomegaly, No Masses Extremities: No Clubbing, No Cyanosis, No Edema, Normal Pulses, No Tenderness/ Swelling Skin: No Rashes, No Breakdown, No Significant Lesion Neuro: Normal Gait, Normal Speech, Strength at 5/5 X4 Ext, Normal Tone, Sensation Intact Psych/Mental Status: Mental Status NL, Mood NL Results Lab Laboratory Tests 02/19/19 05:35 A/P-Cardiology Admission Diagnosis Syncope Sinus bradycardia HTN Systolic murmur Assessment/Plan Syncope, most probably orthostatic hypotension, he has baseline severe hypertension. I adjusted his medication, echocardiogram showed diastolic dysfunction with normal left ventricular systolic function, continue to monitor. Sinus bradycardia, better at this time. Continue to monitor Labile hypertension, poorly controlled. I stopped amlodipine, hydrochlorothiazide and labetalol and started him on Toprol-XL 50 mg daily and I am increasing losartan to 100 mg daily. I will start her on physical therapy and evaluate tolerance and response. I explained to the patient that the target blood pressure for him will be systolic between 150 and 160 to avoid syncope at this point History of Seizure disorder- follows with Neurologist in [place]. Maintained on Tegretol as outpatient Hypokalemia- replace and monitor. Recent gastroenteritis History of cholecystectomy, appendectomy. Clinical Quality Measures DVT/VTE Risk/Contraindication: Risk Factor Score Per Nursin RFS Level Per Nursing on Admit: 2=Moderate YAJAIRA WHITE MD Feb 19, 2019 07:53
[2019-02-19 08:00] VITALS: BP 197/83
[2019-02-19] MEDS ORDERED: LOSARTAN 100 MG (COZAAR) TABLET PO SCH (09:00)
[2019-02-19] MEDS ORDERED: LOSARTAN 50 MG (COZAAR) TAB PO SCH (09:00)
[2019-02-19] MEDS ORDERED: meTOproloL SUCCINATE 50 MG (TOPROL XL) TAB PO SCH (09:00)
[2019-02-19] MEDS ORDERED: HYDROCHLOROTHIAZIDE 25 MG (HCTZ) TAB PO SCH (09:00)
[2019-02-19] MEDS: carBAMazepine 200 MG (TEGretol) TAB PO SCH (09:27)
[2019-02-19] MEDS ORDERED: PATIENT MAY USE OWN MED,SINGLE MED PO SCH (09:30)
[2019-02-19] MEDS: CARBAMAZEPINE 400 MG PO SCH (09:44)
--- NOTE | 2019-02-19 10:24 | Physical Therapy Evaluation ---
PT Evaluation-General Medical Diagnosis Admission Date Feb 17, 2019 at 16:50 Medical Diagnosis: recurrent syncope Onset Date: Feb 17, 2019 Therapy Diagnosis Therapy Diagnosis: debility Height/Weight Height (Feet): 5 Height (Inches): 9.00 Weight (Pounds): 190 Weight (Ounces): 0.7 Precautions Precautions/Isolations: Seizure, Fall Prevention, Standard Precautions Weight Bear Status Right Lower Extremity: Right Weight Bearing/Tolerated Left Lower Extremity: Left Weight Bearing/Tolerated Referral Physician: Lexii Reason for Referral: Evaluation/Treatment Medical History Pertinent Medical History: HTN Additional Medical History seizures Current History ED x 2 secondary to multiple falls secondary to dizziness and with sit to stand Reviewed History: Yes Social History Home: Apartment Current Living Status: Alone Prior/Core FIM Prior Level of Function Therapy Code Descriptions/Definitions Functional [place] Measure: 0=Not Assessed/NA 4=Minimal Assistance 1=Total Assistance 5=Supervision or Setup 2=Maximal Assistance 6=Modified [place] 3=Moderate Assistance 7=Complete [place] Therapy Quality Codes: 6 Independent with activity with or without an assistive device 5 Patient requires set up or clean up by helper. Patient completes activity by themselves 4 Supervision or touching assist (CGA). [place] provide cues , steadying assist 3 The helper provides less than half the effort to complete the activity 2 The helper provides more than half the effort to complete the activity 1 Dependent. The helper does all the effort to complete an activity 7 Patient refused to complete or attempt activity 9 The patient did not perform the activity before the current illness or injury 88 Not attempted due to Medical conditions or safety concerns Functional Abilities and Goals: Independent: Patient completed the activities by him/herself, with or without an assistive device, with no assistance from a helper. Needed Some Help: Patient needed partial assistance from another person to complete activities. Dependent: A helper completed the activities for the patient. Unknown: Not Applicable: Bed Mobility: 7 Transfers (B,C,W/C) (FIM): 7 Gait: 7 Indoor Mobility (Ambulation): Independent Stairs: Independent Prior Devices Use: None PT Evaluation-Current Subjective Patient is very agreeable to participate with PT. Pain Numeric Pain Scale: 0-No Pain Location: No Pain Reported Objective Patient Orientation: Normal For Age Problem Solving: Good Attachments: IV ROM/Strength ROM Lower Extremities bilateral LE WFL Strength Lower Extremities 4+/5 grossly bilateral LE Integumentary/Posture Integumentary refer to nursing notes Bowel Incontinence: No Bladder Incontinence: No Posture slightly kyphotic Neuromuscular (Tone, Coordination, Reflexes) grossly intact Sensory Vision: Functional Hearing: Functional Sensation Right Lower Extremit: Intact Sensation Left Lower Extremity: Intact Transfers Therapy Code Descriptions/Definitions Functional [place] Measure: 0=Not Assessed/NA 4=Minimal Assistance 1=Total Assistance 5=Supervision or Setup 2=Maximal Assistance 6=Modified [place] 3=Moderate Assistance 7=Complete [place] Transfers (B, C, W/C) (FIM): 6 Scootin Supine to/from Sit: 6 Sit to/from Stand: 6 Gait Mode of Locomotion: Walk Anticipated Mode of Locomotion: Walk Gait (FIM): 6 Distance (FIM): 3=150 ft Distance: 600' Gait Level of Assist: 6 Gait Assistive Device: FWW Comments/Gait Description safe and functional with no deviation Balance Sitting Static: Normal Sitting Dynamic: Normal Standing Static: Normal Standing Dynamic: Normal Assessment/Needs 78 y.o. male, will be seen short term by skilled PT to address functional mobility to ensure safe return to home at maximum LOF. Rehab Potential: Good PT Short Term Goals Short Term Goals Time Frame: Feb 25, 2019 Transfers (B,C,W/C) (FIM): 6 Gait (FIM): 6 Distance (FIM): 3=150 ft Gait Distance Comment: 800' Gait Level of Assist: 6 Gait Assistive Device: None, FWW PT Plan Treatment/Plan Treatment Plan: Continue Plan of Care Treatment Plan: Education, Functional Activity Ariel, Functional Strength, Gait , Safety, Therapeutic Exercise, Transfers Treatment Duration: Feb 25, 2019 Frequency: 6 times per week Estimated Hrs Per Day: .25 hour per day Patient and/or Family Agrees t: Yes Discharge Recommendations Therapy D/C Recommendations: Home Independently Time/GCodes Time In: 912 Time Out: 924 Total Billed Treatment Time: 12 Total Billed Treatment 1 visit EVLowC 12 min CHRISTINA MORALES PT Feb 19, 2019 10:23
[2019-02-19 12:00] VITALS: BP 160/70
[2019-02-19] MEDS ORDERED: carBAMazepine 100 MG (TEGretol) CHEW PO SCH (12:00)
[2019-02-19] MEDS ORDERED: METO-370 PO (14:08)
[2019-02-19] MEDS ORDERED: LOSA100T57 PO (14:08)
--- NOTE | 2019-02-19 14:09 | Discharge Inst-Simple/Standard ---
Discharge Inst-Standard Discharge Medications New, Converted or Re-Newed RX: Transmitted to Pharmacy Patient Instructions/Follow Up Plan of Care/Instructions/FU: Please continue to take your medications as written and please follow up with Dr Shultz and your PCP Dr Muñoz to follow up this hospital stay. Activity as Tolerated: Yes Discharge Diet: No Restrictions Return to The Hospital For: Chest pain, shortness of breath, light headedness, syncope, if you feel you are getting worse. MARCELLUS STOUT MD Feb 19, 2019 14:09
--- NOTE | 2019-02-19 14:11 | Discharge Summary-Hospitalist ---
Diagnosis/Chief Complaint Date of Admission Feb 17, 2019 at 16:50 Date of Discharge Discharge Date: Feb 19, 2019 Admission Diagnosis Syncope. 2.multiple falls. 3.hypertension. 4.history of seizure disorder. 5.possible orthostatic hypotension Discharge Summary Discharge Physical Exam Allergies: Coded Allergies: No Known Drug Allergies (Unverified , 02/15/19) Vitals & I&Os Vital Signs Date Time Temp Pulse Resp B/P (MAP) Pulse Ox O2 Delivery O2 Flow Rate FiO2 02/19/19 08:00 96.5 57 18 197/83 (121) 97 Room Air Hospital Course Labs (last 24 hrs) Laboratory Tests 02/19/19 05:35: White Blood Count 8.5, Red Blood Count 3.71L, Hemoglobin 11.8L, Hematocrit 34L, Mean Corpuscular Volume 91, Mean Corpuscular Hemoglobin 32, Mean Corpuscular Hemoglobin Concent 35, Red Cell Distribution Width 13.6, Platelet Count 282, Mean Platelet Volume 9.9, Sodium Level 140, Potassium Level 3.6, Chloride Level 108H, Carbon Dioxide Level 24, Anion Gap 8, Blood Urea Nitrogen 23H, Creatinine 1.24, Estimat Glomerular Filtration Rate 56, BUN/Creatinine Ratio 19, Glucose Level 96, Calcium Level 8.8, Corrected Calcium 9.1, Magnesium Level 1.8, Total Bilirubin 0.3, Aspartate Amino Transf (AST/SGOT) 30, Alanine Aminotransferase ( ALT/SGPT) 36, Alkaline Phosphatase 84, Total Protein 6.5, Albumin 3.6 Patient resulted labs reviewed. Discharge Home Medications: Active Scripts Active Losartan Potassium 100 Mg Tablet 100 Mg PO DAILY Metoprolol Succinate 50 Mg Tab.er.24h 50 Mg PO DAILY Reported Doxazosin Mesylate 2 Mg Tablet 2 Mg PO HS TAKES ALONG WITH 8MG TABLET FOR A TOTAL DOSE OF 10MG Doxazosin Mesylate 8 Mg Tablet 8 Mg PO HS TAKES ALONG WITH 2MG TABLET FOR A TOTAL DOSE OF 10MG Norvasc (Amlodipine Besylate) 10 Mg Tablet 10 Mg PO 1800 Hydrochlorothiazide 50 Mg Tablet 50 Mg PO DAILY Labetalol HCl 200 Mg Tablet 200 Mg PO BID Carbamazepine 100 Mg Tab.chew 100 Mg PO 1200 Tegretol Xr (Carbamazepine) 400 Mg Tab.er.12h 400 Mg PO BID Vitamin B-12 (Cyanocobalamin (Vitamin B-12)) 1,000 Mcg Tablet 1,000 Mcg PO 1200 Probiotic (L.acidoph & Paracasei,B.lactis) 1 Each Capsule 1 Cap PO DAILY Multi-Vitamin Daily (Multivitamin) 1 Each Tablet 1 Tab PO DAILY Instructions to patient/family Please see electronic discharge instructions given to patient. Clinical Quality Measures DVT/VTE Risk/Contraindication: Risk Factor Score Per Nursin RFS Level Per Nursing on Admit: 2=Moderate MARCELLUS STOUT MD Feb 19, 2019 14:11
--- NOTE | 2019-02-19 15:00 | NUR ---
Report received from Lizabeth SEQUEIRA, will continue to monitor.
[2019-02-19 15:36] VITALS: BP 160/70
--- NOTE | 2019-02-19 17:06 | NUR ---
Pt chose [facility] as the DME in [place] to provide his front wheel walker. Faxed physician's order and script, Pt was going to pick it up on his way home.
== END 2019-02-19 15:36 | disposition home or self-care (01) | DRG 312 ==
LOC: EDUNIT# 15:58 → ER FS 16:00 → 4TH 16:50
PROVIDERS: ADMIT Family Medicine; ATTEND Family Medicine
DX: I95.1 Orthostatic hypotension (principal); G40.909 Epilepsy, unspecified, not intractable, without status epilepticus; R79.89 Other specified abnormal findings of blood chemistry; I10 Essential (primary) hypertension; R00.1 Bradycardia, unspecified; R01.1 Cardiac murmur, unspecified; E87.6 Hypokalemia; R07.81 Pleurodynia; M25.561 Pain in right knee; R29.6 Repeated falls; I08.0 Rheumatic disorders of both mitral and aortic valves; S00.81XA Abrasion of other part of head, initial encounter; Z87.891 Personal history of nicotine dependence; Z87.19 Personal history of other diseases of the digestive system; W18.39XA Other fall on same level, initial encounter; Y92.008 Other place in unspecified non-institutional (private) residence as the place of occurrence of the external cause
CPT/HCPCS: 36415; 70450; 72125; 80048; 80053; 80156; 83735; 84443; 84484; 85007; 85027; 85610; 85730; 90471; 90715; 93306; 93880; 96361; 96374

== ENCOUNTER 2019-03-16 17:21 | Emergency (ER) | payer MEDICARE, OTHER ==
[~2019-03-16] VITALS: Ht 172.7 cm; Wt 81.6 kg
[~2019-03-16 17:21] MED LIST changes: +AMLO10TA4 PO; +CARB100T6 PO; +CARB400T PO; +CYAN10006 PO; +DOXA2TAB2 PO; +DOXA8TAB73 PO; +HYDR50TA3 PO; +L.AC1CAP6 PO; +LABE200T7 PO; +LOSA100T57 PO; +METO-370 PO; +MULT-974 PO
[2019-03-16] MEDS ORDERED: KETOROLAC 30 MG/ML VIAL ONE (18:19)
--- NOTE | 2019-03-16 18:27 | ED Abdominal Pain ---
General Chief Complaint: Abdominal/GI Problems Stated Complaint: RT SIDE ABD PAIN Source of Information: Patient Exam Limitations: No Limitations History of Present Illness Date Seen by Provider: Mar 16, 2019 Time Seen by Provider: 17:57 Initial Comments Patient is a pleasant gentleman who comes in on his own recognizance known to Dr. Martinez with a chief complaint of about 2-3 days right lower quadrant abdominal pain worse with movement. He says he has not had a bowel movement for the past for 5 days. He has a history of chronic constipation but does not take anything for it. We concerned as he was going to check on his who lives in the assisted today and he wanted to make sure he didn't have something contagious that might catch with the assisted patrons. He denies any black tarry stools, blood in the stool. He had a colonoscopy about [address] Martinez which was negative and has decided not to continue screening colonoscopies. He is not having any nausea diarrhea vomiting chest pain shortness of breath cough chills or fever that he knows of. He has not taken anything for the pain. He says he takes his blood pressure medicine metoprolol as prescribed however he was recently taken off the losartan. He takes probiotics routinely. He takes his Tegretol as prescribed for his history of seizure disorder. He denies the use of opiates or mu agonists. He's had a few lipomas off of his chest as well as his gallbladder and appendix surgically removed. He denies any polyps or history of diverticula on colonoscopy in the past. Allergies and Home Medications Allergies Coded Allergies: No Known Drug Allergies (Unverified , 02/15/19) Home Medications Carbamazepine 400 Mg Tab.er.12h, 400 MG PO BID, (Reported) Carbamazepine 100 Mg Tab.chew, 100 MG PO 1200, (Reported) Cyanocobalamin (Vitamin B-12) 1,000 Mcg Tablet, 1,000 MCG PO 1200, (Reported) Doxazosin Mesylate 8 Mg Tablet, 8 MG PO HS, (Reported) TAKES ALONG WITH 2MG TABLET FOR A TOTAL DOSE OF 10MG Doxazosin Mesylate 2 Mg Tablet, 2 MG PO HS, (Reported) TAKES ALONG WITH 8MG TABLET FOR A TOTAL DOSE OF 10MG L.acidoph & Paracasei,B.lactis 1 Each Capsule, 1 CAP PO DAILY, (Reported) Multivitamin 1 Each Tablet, 1 TAB PO DAILY, (Reported) Patient Home Medication List Home Medication List Reviewed: Yes Review of Systems Review of Systems Constitutional: No chills, No fever, No malaise, No weakness EENTM: No Double Vision, No Eye Tearing Respiratory: Denies Cough, Denies Shortness of Air Cardiovascular: Denies Chest Pain, Denies Edema Gastrointestinal: Constipated; Denies Diarrhea, Denies Nausea, Denies Poor Fluid Intake Genitourinary: Denies Burning, Denies Discharge Musculoskeletal: No back pain, No joint pain Skin: No pruritus, No rash Psychiatric/Neurological: Denies Headache, Denies Numbness Past Lqpdhtl-Amlkqd-Borhzk Hx Patient Social History Alcohol Use: Occasionally Uses Alcohol Beverage of Choice: Wine Recreational Drug Use: No Smoking Status: Never a Smoker 2nd Hand Smoke Exposure: No Recent Foreign Travel: No Contact w/Someone Who Travel: No Recent Hopitalizations: No Immunizations Up To Date Date of Influenza Vaccine: Dec 20, 2018 Seasonal Allergies Seasonal Allergies: No Past Medical History Surgeries: Yes Appendectomy, Gallbladder Respiratory: No Cardiac: Yes Hypertension Neurological: Yes Seizure Disorder Genitourinary: No Gastrointestinal: No Musculoskeletal: No Endocrine: No HEENT: No Cancer: No Psychosocial: No Integumentary: No Blood Disorders: No Family Medical History No Pertinent Family Hx Physical Exam Vital Signs Vital Signs - First Documented 03/16/19 18:13 Temp 97.1 Pulse 86 Resp 22 B/P (MAP) 147/63 (91) Pulse Ox 94 O2 Delivery Room Air Capillary Refill : Height/Weight/BMI Height: 5'9.00" Weight: 190lbs. 0.7oz. 86.288554wn; 28.1 BMI Method:Stated General Appearance: WD/WN, no apparent distress HEENT: PERRL/EOMI, pharynx normal Respiratory: no respiratory distress, no accessory muscle use Cardiovascular: regular rate, rhythm, no edema Gastrointestinal: normal bowel sounds (quiescent), soft, no organomegaly, tenderness (right lower quadrant but no tenderness over McBurney's point, rebound tenderness, psoas signs, evidence of mesenteric signs) Progress/Results/Core Measures Results/Orders Lab Results Laboratory Tests Test 03/16/19 18:13 Range/Units White Blood Count 11.5 H 4.3-11.0 10^3/uL Red Blood Count 3.66 L 4.35-5.85 10^6/uL Hemoglobin 11.5 L 13.3-17.7 G/DL Hematocrit 34 L 40-54 % Mean Corpuscular Volume 92 80-99 FL Mean Corpuscular Hemoglobin 31 25-34 PG Mean Corpuscular Hemoglobin Concent 34 32-36 G/DL Red Cell Distribution Width 13.2 10.0-14.5 % Platelet Count 298 130-400 10^3/uL Mean Platelet Volume 9.8 7.4-10.4 FL Neutrophils (%) (Auto) 84 H 42-75 % Lymphocytes (%) (Auto) 6 L 12-44 % Monocytes (%) (Auto) 8 0-12 % Eosinophils (%) (Auto) 1 0-10 % Basophils (%) (Auto) 0 0-10 % Neutrophils # (Auto) 9.7 H 1.8-7.8 X 10^3 Lymphocytes # (Auto) 0.7 L 1.0-4.0 X 10^3 Monocytes # (Auto) 1.0 0.0-1.0 X 10^3 Eosinophils # (Auto) 0.1 0.0-0.3 10^3/uL Basophils # (Auto) 0.0 0.0-0.1 10^3/uL Neutrophils % (Manual) 80 % Lymphocytes % (Manual) 8 % Monocytes % (Manual) 6 % Eosinophils % (Manual) 2 % Band Neutrophils 4 % Sodium Level 143 135-145 MMOL/L Potassium Level 3.4 L 3.6-5.0 MMOL/L Chloride Level 100 98-107 MMOL/L Carbon Dioxide Level 36 H 21-32 MMOL/L Anion Gap 7 5-14 MMOL/L Blood Urea Nitrogen 24 H 7-18 MG/DL Creatinine 1.63 H 0.60-1.30 MG/DL Estimat Glomerular Filtration Rate 41 BUN/Creatinine Ratio 15 Glucose Level 142 H 70-105 MG/DL Calcium Level 9.4 8.5-10.1 MG/DL Corrected Calcium 9.4 8.5-10.1 MG/DL Total Bilirubin 0.2 0.1-1.0 MG/DL Aspartate Amino Transf (AST/SGOT) 20 5-34 U/L Alanine Aminotransferase (ALT/SGPT) 19 0-55 U/L Alkaline Phosphatase 83 40-136 U/L Total Protein 7.2 6.4-8.2 GM/DL Albumin 4.0 3.2-4.5 GM/DL My Orders Orders - TITO CASTELLANOS Cbc With Automated Diff (03/16/19 18:18) Comprehensive Metabolic Panel (03/16/19 18:18) Ua Culture If Indicated (03/16/19 18:18) Ketorolac Injection (Toradol Injection) (03/16/19 18:30) Ketorolac Injection (Toradol Injection) (03/16/19 18:19) Manual Differential (03/16/19 18:13) Ct Abdomen/Pelvis W (03/16/19 19:16) Ed Iv/Invasive Line Start (03/16/19 19:16) Ns Iv 1000 Ml (Sodium Chloride 0.9%) (03/16/19 19:16) Iohexol Injection (Omnipaque 350 Mg/Ml 1 (03/16/19 19:30) Received Contrast (Hold Metformin- Contr (03/16/19 19:30) Sodium Chloride Flush (Catheter Flush Sy (03/16/19 19:30) Ns (Ivpb) (Sodium Chloride 0.9% Ivpb Bag (03/16/19 19:30) Ed Iv/Invasive Line Start (03/16/19 19:27) Lactated Ringers (Lr 1000 Ml Iv Solution (03/16/19 19:27) Medications Given in ED Current Medications Medications Dose Ordered Sig/[place] Route Start Time Stop Time Status Last Admin Dose Admin Iohexol 100 ml ONCE ONCE IV 03/16/19 19:30 03/16/19 19:31 DC 03/16/19 19:49 100 ML Ketorolac Tromethamine 30 mg ONCE ONCE IVP 03/16/19 18:30 03/16/19 18:31 DC 03/16/19 18:23 30 MG Sodium Chloride 10 ml NEEDED PRN IV 03/16/19 19:30 03/16/19 19:50 10 ML Sodium Chloride 100 ml ONCE ONCE IV 03/16/19 19:30 03/16/19 19:31 DC 03/16/19 19:50 100 ML Vital Signs/I&O 03/16/19 18:13 Temp 97.1 Pulse 86 Resp 22 B/P (MAP) 147/63 (91) Pulse Ox 94 O2 Delivery Room Air Progress Progress Note #1: Time: 18:26 Progress Note Except for his elevated blood pressure he does not have septic vital signs. His abdomen is nonacute and his demeanor is relaxed. My plan would be to obtain some basic labs and give him a dose of Toradol. If there is any evidence of inflammation, infection or if his pain is not adequately controlled with Toradol and we would complete a CT of his belly. Otherwise a plain film should reveal the constipation that is probably the source of his discomfort. Differential includes diverticulitis, colitis, abdominal wall tenderness. No hernia evidence on examination. Progress Note #2: Time: 19:17 Progress Note The patient's pain has not really changed. He is declining any opiates for the pain at this time. We'll going obtain a CT with contrast and give him a liter of saline. Diagnostic Imaging Diagonstic Imaging: CT (with contrast) Plain Films/CT/US/NM/MRI: abdomen, pelvis Comments [place] stool in the colon. Previous appendectomy and cholecystectomy seen. No evidence of inflammation or acute obstruction. Simple cysts seen on bilateral kidneys. [facility] [place], [place] NAME: BERNARDA MUNOZ [facility] REC#: [id number] PT STATUS: REG ER : 1940 PHYSICIAN: TITO CASTELLANOS MD ADMIT DATE: 03/16/19/ER FS Draft Date of Exam:03/16/19 CT ABDOMEN/PELVIS W PROCEDURE: CT abdomen and pelvis with contrast. TECHNIQUE: Multiple contiguous axial images were obtained through the abdomen and pelvis after administration of intravenous contrast. Auto Exposure Controls were utilized during the CT exam to meet ALARA standards for radiation dose reduction. INDICATION: Right lower quadrant pain with no bowel movements. History of prostate cancer. COMPARISON: Comparison is made with a prior CT from February 15, 2019. FINDINGS: The lung bases demonstrate some minimal dependent atelectasis but otherwise are clear. There is no focal consolidation. There is no pleural or pericardial effusion. Cardiomegaly with left ventricular and left atrial enlargement is present. There is no pericardial effusion. There is a tiny hiatal hernia. The liver demonstrates no evidence of a focal intrahepatic abnormality. The portal veins are patent. The patient is status post cholecystectomy. There is some mild post-cholecystectomy biliary prominence which is within normal limits for post-cholecystectomy state. Spleen demonstrates no focal abnormality. The pancreas is unremarkable. There is no ductal dilatation. There is no adrenal mass. The kidneys demonstrate multiple bilateral renal cysts. The previously described lesion along the medial and inferior left kidney demonstrates no enhancement. The left kidney enhances normally. 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 The small and large bowel appear normal in caliber without evidence of obstruction. There is no focal abnormal bowel thickening. There is a lobzbkea-ra-gfhxs degree of stool demonstrated throughout the colon. The appendix is surgically absent. There is no free air, free fluid, or evidence of abscess. The prostate is enlarged. The urinary bladder is nondistended. There are stereotactic markers in the prostate. There are no pathologically enlarged abdominal or pelvic lymph nodes demonstrated. There are atherosclerotic calcifications present within a normal caliber aorta. Advanced multilevel degenerative disc disease and facet arthropathy are present. There are no findings of an acute osseous injury or suspicious lytic or blastic lesion. IMPRESSION: 1. Abnormal lack of enhancement of the inferior aspect of the right kidney. 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 There is flow within the main renal artery. There is moderate atherosclerotic disease at its origin. There is no definitive accessory renal artery evident. 2. There is no hydronephrosis. The left kidney enhances normally. 3. Bilateral renal cysts. There is no solid renal mass evident. 4. Previous cholecystectomy and appendectomy. There are stereotactic markers within an enlarged prostate. 5. No bowel obstruction. There is, however, a rutgtbcn-tx-mzrum degree of stool throughout the colon. 6. No free air, free fluid, abscess, or pathologic adenopathy. 7. Advanced degenerative features throughout the spine without suspicious lytic or blastic lesion. Dictated on workstation # [id number] Dict: 03/16/192000 Trans: 03/16/192014 [id number] Interpreted by: ZACKERY OLIVAREZ MD Electronically signed by: Reviewed: Reviewed by Me Departure Impression Primary Impression: Constipation Qualified Codes: K59.00 - Constipation, unspecified Disposition: 01 HOME, SELF-CARE Condition: Stable Departure-Patient Inst. Decision time for Depature: 20:30 Referrals: ANGELA MARTINEZ MD (PCP/Family) Primary Care Physician Patient Instructions: Constipation, Adult (DC) Add. Discharge Instructions: Continue to drink plenty of fluids and once or twice a day and one capful of MiraLAX/polyethylene glycol to 6-8 ounces of fluid of your choice until you have completely cleaned out the colon. You may also use suppositories and/or enemas as necessary. Suggest a Fleet enema daily for one to 2 days to help get things moving. If you're having difficulty follow-up with your primary care doctor for further evaluation and management. If you start to have fever, vomiting, or severe pain not treated by Tylenol, ibuprofen or clearing out your colon then return to the nearest ER for further evaluation. All discharge instructions reviewed with patient and/or family. Voiced understanding. Scripts Polyethylene Glycol 3350 (Miralax) 17 Gm Powd.pack 17 GM PO BID PRN for 7 Days, #1 EACH 0 Refills Prov: TITO CASTELLANOS 03/16/19 TITO CASTELLANOS Mar 16, 2019 18:27
[2019-03-16] MEDS ORDERED: KETOROLAC 30 MG/ML VIAL IVP ONE (18:30)
[2019-03-16 18:46] LABS: HEMATOCRIT 34 % (40-54); HEMOGLOBIN 11.5 G/DL (13.3-17.7); MEAN CORPUSCULAR HEMOGLOBIN 31 PG (25-34); MEAN CORPUSCULAR HGB CONC 34 G/DL (32-36); MEAN CORPUSCULAR VOLUME 92 FL (80-99); RED CELL DISTRIBUTION WIDTH 13.2 % (10.0-14.5); WHITE BLOOD COUNT 11.5 10^3/uL (4.3-11.0)
[2019-03-16 18:47] LABS: BASOPHILS % (AUTO) 0 % (0-10); EOSINOPHILS # (AUTO) 0.1 10^3/uL (0.0-0.3); EOSINOPHILS % (AUTO) 1 % (0-10); LYMPHOCYTES # (AUTO) 0.7 X 10^3 (1.0-4.0); LYMPHOCYTES % (AUTO) 6 % (12-44); MEAN PLATELET VOLUME 9.8 FL (7.4-10.4); MONOCYTES % (AUTO) 8 % (0-12); NEUTROPHILS # (AUTO) 9.7 X 10^3 (1.8-7.8); NEUTROPHILS % (AUTO) 84 % (42-75); PLATELET COUNT 298 10^3/uL (130-400)
[2019-03-16 18:49] LABS: BAND NEUTROPHILS 4 %; EOSINOPHILS % (MANUAL) 2 %; LYMPHOCYTES % (MANUAL) 8 %; MONOCYTES % (MANUAL) 6 %; NEUTROPHILS % (MANUAL) 80 %
[2019-03-16] MEDS ORDERED: NS IV 1000 ML 1,000 ML IV SCH (19:16)
[2019-03-16 19:19] LABS: BILIRUBIN,TOTAL 0.2 MG/DL (0.1-1.0); CALCIUM 9.4 MG/DL (8.5-10.1); CREATININE SERUM 1.63 MG/DL (0.60-1.30); POTASSIUM 3.4 MMOL/L (3.6-5.0); TOTAL PROTEIN 7.2 GM/DL (6.4-8.2)
[2019-03-16] MEDS ORDERED: LACTATED RINGERS 1,000 ML IV ONE (19:27)
[2019-03-16] MEDS ORDERED: CATHETER FLUSH 10 ML SYR IV PRN (19:30)
[2019-03-16] MEDS ORDERED: NS 100 ML (IVPB) BAG IV ONE (19:30)
[2019-03-16] MEDS ORDERED: IOHEXOL 350 MG/ML 100 ML (OMNIPAQUE 350) VIAL IV ONE (19:30)
[2019-03-16] MEDS ORDERED: HOLD METFORMIN - RECEIVED CONTRAST 20 ML VIAL IV SCH (19:30)
--- NOTE | 2019-03-16 20:15 | Diagnostic Imaging Report ---
PROCEDURE: CT abdomen and pelvis with contrast. TECHNIQUE: Multiple contiguous axial images were obtained through the abdomen and pelvis after administration of intravenous contrast. Auto Exposure Controls were utilized during the CT exam to meet ALARA standards for radiation dose reduction. INDICATION: Right lower quadrant pain with no bowel movements. History of prostate cancer. COMPARISON: Comparison is made with a prior CT from February 15, 2019. FINDINGS: The lung bases demonstrate some minimal dependent atelectasis but otherwise are clear. There is no focal consolidation. There is no pleural or pericardial effusion. Cardiomegaly with left ventricular and left atrial enlargement is present. There is no pericardial effusion. There is a tiny hiatal hernia. The liver demonstrates no evidence of a focal intrahepatic abnormality. The portal veins are patent. The patient is status post cholecystectomy. There is some mild post-cholecystectomy biliary prominence which is within normal limits for post-cholecystectomy state. Spleen demonstrates no focal abnormality. The pancreas is unremarkable. There is no ductal dilatation. There is no adrenal mass. The kidneys demonstrate multiple bilateral renal cysts. The previously described lesion along the medial and inferior left kidney demonstrates no enhancement. The left kidney enhances normally. 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 The small and large bowel appear normal in caliber without evidence of obstruction. There is no focal abnormal bowel thickening. There is a nwqnaiiv-tu-temct degree of stool demonstrated throughout the colon. The appendix is surgically absent. There is no free air, free fluid, or evidence of abscess. The prostate is enlarged. The urinary bladder is nondistended. There are stereotactic markers in the prostate. There are no pathologically enlarged abdominal or pelvic lymph nodes demonstrated. There are atherosclerotic calcifications present within a normal caliber aorta. Advanced multilevel degenerative disc disease and facet arthropathy are present. There are no findings of an acute osseous injury or suspicious lytic or blastic lesion. IMPRESSION: 1. Abnormal lack of enhancement of the inferior aspect of the right kidney. 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 There is flow within the main renal artery. There is moderate atherosclerotic disease at its origin. There is no definitive accessory renal artery evident. 2. There is no hydronephrosis. The left kidney enhances normally. 3. Bilateral renal cysts. There is no solid renal mass evident. 4. Previous cholecystectomy and appendectomy. There are stereotactic markers within an enlarged prostate. 5. No bowel obstruction. There is, however, a xduneuei-ls-mqrdj degree of stool throughout the colon. 6. No free air, free fluid, abscess, or pathologic adenopathy. 7. Advanced degenerative features throughout the spine without suspicious lytic or blastic lesion. Dictated by: Dictated on workstation # [id number]
[2019-03-16] MEDS ORDERED: POLY17PO6 PO (20:32)
[2019-03-16 20:53] VITALS: BP 170/89
== END 2019-03-16 20:53 | disposition home or self-care (01) ==
LOC: EDUNIT# 17:21 → ER FS 17:22
DX: K59.00 Constipation, unspecified (principal); G40.909 Epilepsy, unspecified, not intractable, without status epilepticus; I10 Essential (primary) hypertension; Z87.19 Personal history of other diseases of the digestive system; Z90.49 Acquired absence of other specified parts of digestive tract
CPT/HCPCS: 36415; 74177; 80053; 85007; 85027

== ENCOUNTER 2019-10-25 19:10 | Emergency (ER) | payer MEDICARE, OTHER ==
[~2019-10-25] VITALS: Ht 175 cm; Wt 85.0 kg
[~2019-10-25 19:10] MED LIST changes: +CYAN-41 PO; -CYAN10006 PO; +POLY17PO6 PO
[2019-10-25] MEDS ORDERED: LACTATED RINGERS 1,000 ML IV ONE (19:26)
[2019-10-25] MEDS ORDERED: ONDANSETRON 4 MG/2 ML (SDV) Z0FRAN IVP ONE (19:30)
--- NOTE | 2019-10-25 19:32 | ED GI ---
General Chief Complaint: Abdominal/GI Problems Stated Complaint: NAUSEA/VOMITTING Source of Information: Patient Exam Limitations: No Limitations History of Present Illness Date Seen by Provider: Oct 25, 2019 Time Seen by Provider: 19:15 Initial Comments Patient presents to ER by private conveyance with a neighbor and chief complaint that today he started having some nausea vomiting and loose watery diarrhea without blood in stool or emesis. He has had his gallbladder and appendix out historically been no recent surgeries. No scopes no history of diverticulitis. No trauma fevers chills or sweats. No chest pain shortness of breath or cough. He recently put his in a fpc and has been visiting her and has multiple sick contacts there. He is up-to-date on his vaccinations including flu vaccination. He has not taken anything for the symptoms today. He is not having any abdominal pain. He says occasionally get a small amount of pain across the middle but is very mild and short-lived. He denies dysuria Allergies and Home Medications Allergies Coded Allergies: No Known Drug Allergies (Unverified , 02/15/19) Home Medications Carbamazepine 400 Mg Tab.er.12h, 400 MG PO BID, (Reported) Carbamazepine 100 Mg Tab.chew, 100 MG PO 1200, (Reported) Cyanocobalamin (Vitamin B-12) 1,000 Mcg Tablet, 1,000 MCG PO 1200, (Reported) Doxazosin Mesylate 8 Mg Tablet, 8 MG PO HS, (Reported) TAKES ALONG WITH 2MG TABLET FOR A TOTAL DOSE OF 10MG Doxazosin Mesylate 2 Mg Tablet, 2 MG PO HS, (Reported) TAKES ALONG WITH 8MG TABLET FOR A TOTAL DOSE OF 10MG L.acidoph & Paracasei,B.lactis 1 Each Capsule, 1 CAP PO DAILY, (Reported) Multivitamin 1 Each Tablet, 1 TAB PO DAILY, (Reported) Ondansetron 4 Mg Tab.rapdis, 4 MG PO Q6H PRN for NAUSEA/VOMITING Prescribed by: TITO CASTELLANOS on 10/25/192002 Polyethylene Glycol 3350 17 Gm Powd.pack, 17 GM PO BID PRN Prescribed by: TITO CASTELLANOS on 03/16/192031 Patient Home Medication List Home Medication List Reviewed: Yes Review of Systems Review of Systems Constitutional: No chills, No fever, No malaise EENTM: No Blurred Vision, No Double Vision Respiratory: Denies Cough, Denies Shortness of Air Cardiovascular: Denies Chest Pain, Denies Edema Gastrointestinal: See HPI; Denies Abdomen Distended, Denies Abdominal Pain, Denies Blood Streaked Stools, Denies Constipated; Diarrhea, Nausea, Poor Fluid Intake, Vomiting Genitourinary: Denies Burning, Denies Discharge Musculoskeletal: No back pain, No joint pain Skin: No pruritus, No rash Psychiatric/Neurological: Denies Headache, Denies Numbness All Other Systems Reviewed Negative Unless Noted: Yes Past Qgenwxi-Fibnpw-Svbteg Hx Patient Social History Alcohol Use: Regular Use Alcohol Beverage of Choice: Wine (1/day) Recreational Drug Use: No Smoking Status: Never a Smoker 2nd Hand Smoke Exposure: No Recent Foreign Travel: No Contact w/Someone Who Travel: No Recent Hopitalizations: No Immunizations Up To Date Date of Influenza Vaccine: Dec 20, 2018 Seasonal Allergies Seasonal Allergies: No Past Medical History Surgeries: Yes Appendectomy, Gallbladder Respiratory: No Cardiac: Yes Hypertension Neurological: Yes Seizure Disorder Genitourinary: No Gastrointestinal: No Musculoskeletal: No Endocrine: No HEENT: No Cancer: No Psychosocial: No Integumentary: No Blood Disorders: No Family Medical History No Pertinent Family Hx Physical Exam Vital Signs Vital Signs - First Documented 10/25/19 19:29 Temp 37.2 Pulse 81 Resp 15 B/P (MAP) 166/80 (108) Pulse Ox 95 O2 Delivery Room Air Capillary Refill : Height/Weight/BMI Height: 5'8.00" Weight: 180lbs. 0oz. 81.303806df; 28.1 BMI Method:Stated General Appearance: WD/WN, no apparent distress HEENT: PERRL/EOMI, pharynx normal (oropharynx mucosa mildly dry) Neck: full range of motion, supple, normal inspection Respiratory: lungs clear, normal breath sounds, no respiratory distress, no accessory muscle use Cardiovascular: normal peripheral pulses, regular rate, rhythm; No tachycardia Peripheral Pulses: 2+ Dorsalis Pedis (R), 2+ Left Dors-Pedis (L) Gastrointestinal: normal bowel sounds, non tender, soft, no organomegaly Extremities: normal range of motion, normal capillary refill Neurologic/Psychiatric: alert, normal mood/affect, oriented x 3 Skin: normal color, warm/dry Progress/Results/Core Measures Results/Orders Lab Results Laboratory Tests Test 10/25/19 19:15 10/25/19 19:30 Range/Units Urine Color YELLOW Urine Clarity CLEAR Urine pH 6.5 5-9 Urine Specific Buckley 1.025 H 1.016-1.022 Urine Protein 2+ H NEGATIVE Urine Glucose (UA) NEGATIVE NEGATIVE Urine Ketones NEGATIVE NEGATIVE Urine Nitrite NEGATIVE NEGATIVE Urine Bilirubin NEGATIVE NEGATIVE Urine Urobilinogen 0.2 < = 1.0 MG/DL Urine Leukocyte Esterase NEGATIVE NEGATIVE Urine RBC (Auto) NEGATIVE NEGATIVE Urine RBC NONE /HPF Urine WBC NONE /HPF Urine Crystals NONE /LPF Urine Bacteria NEGATIVE /HPF Urine Casts NONE /LPF Urine Mucus MODERATE H /LPF Urine Culture Indicated NO White Blood Count 10.6 4.3-11.0 10^3/uL Red Blood Count 3.95 L 4.35-5.85 10^6/uL Hemoglobin 12.1 L 13.3-17.7 G/DL Hematocrit 37 L 40-54 % Mean Corpuscular Volume 93 80-99 FL Mean Corpuscular Hemoglobin 31 25-34 PG Mean Corpuscular Hemoglobin Concent 33 32-36 G/DL Red Cell Distribution Width 13.7 10.0-14.5 % Platelet Count 350 130-400 10^3/uL Mean Platelet Volume 9.1 7.4-10.4 FL Neutrophils (%) (Auto) 92 H 42-75 % Lymphocytes (%) (Auto) 4 L 12-44 % Monocytes (%) (Auto) 4 0-12 % Eosinophils (%) (Auto) 0 0-10 % Basophils (%) (Auto) 0 0-10 % Neutrophils # (Auto) 9.8 H 1.8-7.8 X 10^3 Lymphocytes # (Auto) 0.4 L 1.0-4.0 X 10^3 Monocytes # (Auto) 0.4 0.0-1.0 X 10^3 Eosinophils # (Auto) 0.0 0.0-0.3 10^3/uL Basophils # (Auto) 0.0 0.0-0.1 10^3/uL Neutrophils % (Manual) 95 % Lymphocytes % (Manual) 2 % Monocytes % (Manual) 2 % Reactive Lymphocytes 1 % Poikilocytosis SLIGHT Microcytosis SLIGHT Sodium Level 141 135-145 MMOL/L Potassium Level 3.4 L 3.6-5.0 MMOL/L Chloride Level 100 98-107 MMOL/L Carbon Dioxide Level 27 21-32 MMOL/L Anion Gap 14 5-14 MMOL/L Blood Urea Nitrogen 24 H 7-18 MG/DL Creatinine 1.41 H 0.60-1.30 MG/DL Estimat Glomerular Filtration Rate 48 BUN/Creatinine Ratio 17 Glucose Level 128 H 70-105 MG/DL Calcium Level 9.3 8.5-10.1 MG/DL Corrected Calcium 9.1 8.5-10.1 MG/DL Total Bilirubin 0.3 0.1-1.0 MG/DL Aspartate Amino Transf (AST/SGOT) 19 5-34 U/L Alanine Aminotransferase (ALT/SGPT) 18 0-55 U/L Alkaline Phosphatase 62 40-136 U/L Pro-B-Type Natriuretic Peptide 1418.0 H <75.0 PG/ML Total Protein 7.5 6.4-8.2 GM/DL Albumin 4.2 3.2-4.5 GM/DL Lipase 36 8-78 U/L My Orders Orders - TITO CASTELLANOS Ua Culture If Indicated (10/25/19 19:26) Cbc With Automated Diff (10/25/19 19:26) Comprehensive Metabolic Panel (10/25/19 19:26) Probnp Fs (10/25/19 19:) Lipase (10/25/19 19:26) Ed Iv/Invasive Line Start (10/25/19 19:26) Lactated Ringers (Lr 1000 Ml Iv Solution (10/25/19 19:26) Ondansetron Injection (Zofran Injectio (10/25/19 19:30) Manual Differential (10/25/19 19:30) Medications Given in ED Current Medications Medications Dose Ordered Sig/[place] Route Start Time Stop Time Status Last Admin Dose Admin Lactated Ringer's 1,000 ml @ 0 mls/hr Q0M ONCE IV 10/25/19 19:26 10/25/19 19:29 DC 10/25/19 19:44 0 MLS/HR Ondansetron HCl 8 mg ONCE ONCE IVP 10/25/19 19:30 12 19:31 DC 10/25/19 19:44 8 MG Vital Signs/I&O 10/25/19 19:29 Temp 37.2 Pulse 81 Resp 15 B/P (MAP) 166/80 (108) Pulse Ox 95 O2 Delivery Room Air Progress Progress Note #1: Time: 19:32 Progress Note Aseptic vital signs and a benign abdominal exam. We'll start with some Zofran and a bag of fluids check some labs. We'll have a low threshold to obtain CT imaging of his abdomen and pelvis. Seems most likely that this is gastroenteritis and colitis. Progress Note #2: Time: 20:00 Progress Note Patient's complete blood count looks okay urine is clean and his nausea is gone after the Zofran. If his electrolytes are acceptable any functions. Then we could set him up for outpatient follow-up with primary care on ondansetron and Imodium. We have explained this and he is okay with this plan. We have given him good return precautions. Progress Note #3: Time: 20:31 Progress Note Creatinine is at baseline. He's received some potassium to the lactated Ringer's. Encourage oral fluids at home. Departure Impression Primary Impression: Gastroenteritis/colitis, infectious Disposition: 01 HOME, SELF-CARE Condition: Improved Departure-Patient Inst. Decision time for Depature: 20:32 Referrals: ANGELA MARTINEZ MD (PCP/Family) Primary Care Physician Patient Instructions: [id number], Colitis (DC) Add. Discharge Instructions: Drink plenty of fluids. Sports drinks such as Gatorade or Powerade are encouraged. Tylenol thousand milligrams every 8 hours in addition to ibuprofen 800 mg every 8 hours as needed for pain. Zofran 1 tablet every 6 hours as needed for nausea or vomiting. As long as you keep putting fluids and faster than you're losing them and don't feel like you're becoming dehydrated then allow the diarrhea to go for the first 2 days. If your diarrhea persists for more than 2 days then you should picker tender helper a bottle of loperamide/Imodium. Take 2 tablets followed by one tablet every 4 hours afterwards if you're still having loose watery stools. If your symptoms persist for more than 3 days you should follow-up with your primary care doctor. If you're having intractable pain, fever or other worrisome symptoms such as you're becoming dehydrated then you should return to the nearest ER promptly. All discharge instructions reviewed with patient and/or family. Voiced understanding. Scripts Ondansetron (Ondansetron Odt) 4 Mg Tab.rapdis 4 MG PO Q6H PRN for NAUSEA/VOMITING, #12 TAB 0 Refills Prov: TITO CASTELLANOS 10/25/19 TITO CASTELLANOS Oct 25, 2019 19:32 POS
[2019-10-25 19:44] LABS: COLOR,URINE YELLOW
[2019-10-25 19:45] LABS: BILIRUBIN,URINE NEGATIVE (NEGATIVE); CLARITY,URINE CLEAR; GLUCOSE, URINE (UA) NEGATIVE (NEGATIVE); KETONES,URINE NEGATIVE (NEGATIVE); LEUKOCYTE ESTERASE ,URINE NEGATIVE (NEGATIVE); NITRITE,URINE NEGATIVE (NEGATIVE); PH,URINE 6.5 (5-9); PROTEIN,URINE 2+ (NEGATIVE)
[2019-10-25 19:50] LABS: BASOPHILS % (AUTO) 0 % (0-10); EOSINOPHILS % (AUTO) 0 % (0-10); HEMATOCRIT 37 % (40-54); HEMOGLOBIN 12.1 G/DL (13.3-17.7); LYMPHOCYTES # (AUTO) 0.4 X 10^3 (1.0-4.0); LYMPHOCYTES % (AUTO) 4 % (12-44); MEAN CORPUSCULAR HEMOGLOBIN 31 PG (25-34); MEAN CORPUSCULAR HGB CONC 33 G/DL (32-36); MEAN CORPUSCULAR VOLUME 93 FL (80-99); MEAN PLATELET VOLUME 9.1 FL (7.4-10.4); MONOCYTES # (AUTO) 0.4 X 10^3 (0.0-1.0); MONOCYTES % (AUTO) 4 % (0-12); NEUTROPHILS # (AUTO) 9.8 X 10^3 (1.8-7.8); NEUTROPHILS % (AUTO) 92 % (42-75); PLATELET COUNT 350 10^3/uL (130-400); RED CELL DISTRIBUTION WIDTH 13.7 % (10.0-14.5); WHITE BLOOD COUNT 10.6 10^3/uL (4.3-11.0)
[2019-10-25 19:51] LABS: BACTERIA,URINE NEGATIVE /HPF
[2019-10-25 20:00] LABS: LYMPHOCYTES % (MANUAL) 2 %; MICROCYTOSIS SLIGHT; MONOCYTES % (MANUAL) 2 %; NEUTROPHILS % (MANUAL) 95 %; POIKILOCYTOSIS SLIGHT; REACTIVE LYMPHOCYTES 1 %
[2019-10-25] MEDS ORDERED: ONDA4TAB11 PO (20:03)
[2019-10-25 20:08] LABS: ALBUMIN 4.2 GM/DL (3.2-4.5); BILIRUBIN,TOTAL 0.3 MG/DL (0.1-1.0); CALCIUM 9.3 MG/DL (8.5-10.1); CREATININE SERUM 1.41 MG/DL (0.60-1.30); POTASSIUM 3.4 MMOL/L (3.6-5.0); TOTAL PROTEIN 7.5 GM/DL (6.4-8.2)
[2019-10-25] MEDS ORDERED: RX-ONDANSETRON 4 MG ODT (ZOFRAN) PPK #4 PO STA (20:34)
[2019-10-25 20:44] VITALS: BP 179/84
--- OUTSIDE RECORDS SUMMARY | 2019-11-19 11:52 | XMS REPORT | Continuity of Care Document ---
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 - Other symptoms involving nervous and musculoskeletal systems - Neuropathy, peripheral NOS - Partial epilepsy, 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[place] - Essential tremor - Loss of balance - Peripheral neuropathy, idiopathic - Partial epilepsy, 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 Family History Family Member Diagnosis Age At Onset Status Mother (Unknown) Cancer -lung Yes Father (Unknown) CVA (Stroke) Yes Social History Social History Element Description Quantity alcohol wine 2 glasses caffeine coffee 1 cup Allergies, Adverse Reactions, Alerts Substance Reaction Severity Status Unknown Medications Medication Instructions Dosage Effective Dates (start - sto p) Status calcium citrate-vitamin D3 200 mg calcium-250 unit tablet take 2 daily - Active Tegretol XR 400 mg tablet,extended release take 1 tablet twice d aily - Active carbamazepine 100 mg chewable tablet take 1 tablet mid day - Active labetalol 200 mg tablet take 1 tablet twice daily - Active HYDROCHLOROTHIAZIDE (unknown strength) 25mg twice daily - Active Aspirin Childrens 81 mg chewable tablet take 1 daily A - Active multivitamin capsule take 1 capsule by oral route every day 0 - Active amlodipine 10 mg tablet take 1 tablet (10MG) by oral route kimberly ry day 10 MG - Active doxazosin 2 mg tablet tae 1 at bedtime - Active doxazosin 8 mg tablet take 1 tablet at bedtime 2011 - Active VITAMIN B-12 (unknown strength) take 1 daily - Active Immunizations Vaccine Date Status Comments Unknown Results Test Name Date and Time Measure Units Reference Range Abnormal F lag Comments Unknown Vital Signs Date / Time: Height Weight Pulse Rate Blood Pressure Temperat ure /10:57:00 70.00 in 172.20 lbs 118/68 mm[Hg] Procedures Procedure Date OFFICE/OUTPATIENT VISIT, EST Encounters Encounter Location Date Patient Visit [facility] [place] Patient Visit [facility] Patient Visit [facility] Advance Directives Directive Yes / No Effective Date Resuscitation Yes 04/07/2013 Life Support Yes 04/07/2013 Intubation Yes 04/07/2013 Antibiotics Yes 04/07/2013 IV Fluid Support Yes 04/07/2013 WARNING:The information contained in this section is historical and is provided for information only and does not constitute a legal document or any assurance t hat the information is still accurate. Please verify the information with the ho lder of the legal document before using it for clinical purposes.
--- OUTSIDE RECORDS SUMMARY | 2019-11-19 11:53 | XMS REPORT | Continuity of Care Document ---
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[place] - Essential tremor - Loss of balance - Peripheral neuropathy, idiopathic - Partial epilepsy, 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 Family History Family Member Diagnosis Age At Onset Status Mother (Unknown) Cancer -lung Yes Father (Unknown) CVA (Stroke) Yes Social History Social History Element Description Quantity Unknown Allergies, Adverse Reactions, Alerts Substance Reaction Severity Status Unknown Medications Medication Instructions Dosage Effective Dates (start - sto p) Status Tegretol XR 400 mg tablet,extended release take [...] oral route every day 0 - Active Misc Drug Tumeric every day - Active calcium citrate-vitamin D3 200 mg calcium-250 unit tab let take 4 tablets ever day - Active amlodipine 10 mg tablet take 1 tablet (10MG) by oral route kimberly ry day 10 MG - Active doxazosin 2 mg tablet tae 1 at bedtime - Active doxazosin 8 mg tablet take 1 tablet at bedtime 2011 - Active VITAMIN B-12 (unknown strength) take 1 daily - Active Immunizations Vaccine Date Status Unknown Results Test Name Date and Time Measure Units Reference Range Abnormal F lag Comments Unknown Vital Signs Date / Time: Height Weight Pulse Rate Blood Pressure Temperat ure Unknown Procedures Procedure Date Unknown Encounters Encounter Location Date Patient Visit Patient Visit [facility] Patient Visit [facility] Advance Directives Directive Effective Date Unknown
--- OUTSIDE RECORDS SUMMARY | 2019-11-19 11:53 | XMS REPORT | Continuity of Care Document ---
Author Author Admin, BERNARDA De Paz [facility] Address Unknown Phone Unavailable Care Team Providers Care Personalization Specialist Name Role Phone Toni HAWTHORNE, Alfredo WILBURN Unavailable Toni HAWTHORNE, Alfredo RP Unavailable Payers Payer name Insurance type Covered constitution party ID Authorization(s ) Part B WPS SM MB [id number] Supp Generic SP [id number] Problems Condition Effective Dates (start - stop) [...] (unknown strength) take 1 daily - Active calcium citrate-vitamin D3 200 mg calcium-250 unit tablet take 2 daily - Active Immunizations Vaccine Date Status Comments Unknown Results Test Name Date and Time Measure Units Reference Range Abnormal F lag Comments Unknown Vital Signs Date / Time: Height Weight Pulse Rate Blood Pressure Temperat ure Unknown Procedures Procedure Date Unknown Encounters Encounter Location Date Patient Visit Patient Visit [facility] Patient Visit [facility] [place] Patient Visit [facility] Advance Directives Directive Yes / No Effective Date Resuscitation Yes 11/26/2013 Life Support Yes 11/26/2013 Intubation Yes 11/26/2013 Antibiotics Yes 11/26/2013 IV Fluid Support Yes 11/26/2013 WARNING:The information contained in this section is historical and is provided for information only and does not constitute a legal document or any assurance t hat the information is still accurate. Please verify the information with the ho lder of the legal document before using it for clinical purposes.
--- OUTSIDE RECORDS SUMMARY | 2019-11-19 11:53 | XMS REPORT | Continuity of Care Document ---
Author Author Admin, BERNARDA De Paz [facility] Address Unknown Phone Unavailable Care Team Providers Care Jewel Bearing Polisher Name Role Phone Toni HAWTHORNE, Alfredo WILBURN Unavailable Toni HAWTHORNE, Alfredo GUARDADO Unavailable Payers Payer name Insurance type Covered alliance party ID Authorization(s ) Part B WPS SM MB [id number] Supp Generic SP [id number] Problems Condition Effective Dates (start - stop) [...] Encounter Location Date Patient Visit Patient Visit [facility] Patient Visit [facility] [place] Patient Visit [facility] Advance Directives Directive Yes / [...]
--- OUTSIDE RECORDS SUMMARY | 2019-11-19 11:53 | XMS REPORT | Continuity of Care Document ---
Author Author BERNARDA Spear Organization [facility] Address [address] [place] [address]. [address] [place], [place] [id number] Phone Care Team Providers Care Therapist Phys Name Role Phone Toni HAWTHORNE, Alfredo PP Unavailable Toni HAWTHORNE, Alfredo RP Unavailable Payers Payer name Insurance type Covered republican ID Authorization(s ) Part B WPS SM MB [id number] Supp Generic SP [id number] Problems Condition Effective Dates (start - stop) [...] Unknown Encounters Encounter Location Date Patient Visit [facility] [place] Patient Visit [facility] [place] Patient Visit [facility] [place] Patient Visit [facility] Advance Directives Directive Yes / No Effective Date Resuscitation Yes 10/06/2013 Life Support Yes 10/06/2013 Intubation Yes 10/06/2013 Antibiotics Yes 10/06/2013 IV Fluid Support Yes 10/06/2013 WARNING:The information contained in this section is historical and is provided for information only and does not constitute a legal document or any assurance t hat the information is still accurate. Please verify the information with the ho lder of the legal document before using it for clinical purposes.
--- OUTSIDE RECORDS SUMMARY | 2019-11-19 11:53 | XMS REPORT | Continuity of Care Document ---
Author Author Admin, BERNARDA De Paz [facility] Address Unknown Phone Unavailable Care Team Providers Care [place] Support Worker Name Role Phone Toni HAWTHORNE, Alfredo WILBURN Unavailable Toni HAWTHORNE, Alfredo GUARDADO Unavailable Payers Payer name Insurance type Covered alliance party ID Authorization(s ) Part B WPS SM MB [id number] Supp Generic SP [id number] Problems Condition Effective Dates (start - stop) [...] Encounter Location Date Patient Visit Patient Visit [facility] Patient Visit [facility] [place] Patient Visit [facility] Advance Directives Directive Yes / No Effective Date Resuscitation Yes 10/05/2013 Life Support Yes 10/05/2013 Intubation Yes 10/05/2013 Antibiotics Yes 10/05/2013 IV Fluid Support Yes 10/05/2013 WARNING:The information contained in this section is historical and is provided for information only and does not constitute a legal document or any assurance t hat the information is still accurate. Please verify the information with the ho lder of the legal document before using it for clinical purposes.
--- OUTSIDE RECORDS SUMMARY | 2019-11-19 11:53 | XMS REPORT | Continuity of Care Document ---
Author Author Admin, BERNARDA De Paz [facility] Address Unknown Phone Unavailable Care Team Providers Care Police Department Secretary Name Role Phone Toni HAWTHORNE, Alfredo WILBURN Unavailable Toni HAWTHORNE, Alfredo GUARDADO Unavailable Payers Payer name Insurance type Covered democrat ID Authorization(s ) Part B WPS SM MB [id number] Supp Generic SP [id number] Problems Condition Effective Dates (start - stop) [...] Encounter Location Date Patient Visit Patient Visit [facility] Patient Visit [facility] [place] Patient Visit [facility] Advance Directives Directive Yes / No Effective Date Resuscitation Yes 12/02/2013 Life Support Yes 12/02/2013 Intubation Yes 12/02/2013 Antibiotics Yes 12/02/2013 IV Fluid Support Yes 12/02/2013 WARNING:The information contained in this section is historical and is provided for information only and does not constitute a legal document or any assurance t hat the information is still accurate. Please verify the information with the ho lder of the legal document before using it for clinical purposes.
--- OUTSIDE RECORDS SUMMARY | 2019-11-19 11:53 | XMS REPORT | Continuity of Care Document ---
Author Author BERNARDA Simpson Organization [facility] Ayla portillo Address [address] [address] Phone Care Team Providers Care Replenisher Name Role Phone Alfredo Muñoz PP Unavailable Delonte HAWTHORNE, Nelsy WILBURN Unavailable Feroz HAWTHORNE, Renzo WILBURN Unavailable Alfredo Muñoz RP Unavailable Payers Payer name Insurance type Covered green party ID Authorization(s ) Part B WPS SM MB [id number] Supp Generic SP [id number] Problems Condition Effective Dates (start - stop) Clinical Status Partial epilepsy, 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- Hereditary Tremor - Other symptoms involving [...] 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 Family History Family Member Diagnosis Age At Onset Status Father (Unknown) Mother (Unknown) Mother Cancer -lung (Cause Of ) N Father Stroke (Cause Of ) N Social History Type Description Quantity Date Unknown Allergies, Adverse Reactions, Alerts Substance Reaction Severity Status Unknown Medications Medication Instructions Dosage Effective Dates (start - stop) Sta tus Comments Vitamin D3 2,000 unit capsule take daily - Ac tive Tegretol XR 400 mg 12 hr Tab take 1 tablet twice daily Jun - Active carbamazepine 100 mg Chewable Tab take 1 tablet mid day Au - Active labetalol 200 mg Tab take 1 tablet twice daily - Active Aspirin Childrens 81 mg Chewable Tab take 1 daily 012 - Active multivitamin Cap take 1 capsule by oral route every day 0 - Active amlodipine 10 mg Tab take 1 tablet (10MG) by oral route every day 10 MG - Active doxazosin 2 mg Tab tae 1 at bedtime - Active doxazosin 8 mg Tab take 1 tablet at bedtime - Active VITAMIN B-12 (unknown strength) take 1 daily - Ac tive HYDROCHLOROTHIAZIDE (unknown strength) 50 mg daily - Active Immunizations Vaccine Date Status Comments Unknown Results Test Name Date and Time Measure Units Reference Range Abnormal F lag Comments Unknown Vital Signs Date / Time: Height Weight BMI Pulse Rate Blood Pressure Temperatu re Respiratory Rate Body Surface Area Head Circumference BMI percentile Unknown Procedures Procedure Date Unknown Encounters Encounter Practice Location Reason(s) For Visit Diagnoses Date Unknown [facility] Ayla portillo, [address] [place], [address] [facility] Unknown [facility] Ayla portillo, [address] [place], [address] [facility] [place] rtial epilepsy, without mention of intractable epilepsyEssential tremorLoss of balancePeripheral neuropathy, idiopathic Unknown [facility] Ayla portillo, [address] [place], [address] [facility] [place] epilepsy, without mention of intractable epilepsyHereditary TremorOther symptoms involving nervous and musculoskeletal systemsNeuropathy, peripheral NOS Unknown [facility] Ayla portillo, [address] [place], [address] [facility] [place] epilepsy, without mention of intractable epilepsyHereditary Tremor Unknown [facility] Ayla portillo, [address] [place], [address] [facility] [place] epilepsy, without mention of intractable epilepsyHereditary TremorOther symptoms involving nervous and musculoskeletal systemsNeuropathy, peripheral NOS Advance Directives Directive Yes / No Effective Date File Name Unknown WARNING:The information contained in this section is historical and is provided for information only and does not constitute a legal document or any assurance t hat the information is still accurate. Please verify the information with the ho lder of the legal document before using it for clinical purposes.
--- OUTSIDE RECORDS SUMMARY | 2019-11-19 11:53 | XMS REPORT | Continuity of Care Document ---
Author Author Admin, BERNARDA De Paz [facility] Address Unknown Phone Unavailable Care Team Providers Care Batch Freezer Operator Name Role Phone Toni HAWTHORNE, Alfredo WILBURN Unavailable Toni HAWTHORNE, Alfredo GUARDADO Unavailable Payers Payer name Insurance type Covered republican ID Authorization(s ) Part B WPS SM MB [id number] Supp Generic SP [id number] Problems Condition Effective Dates (start - stop) [...] Encounter Location Date Patient Visit Patient Visit [facility] Patient Visit [facility] [place] Patient Visit [facility] Advance Directives Directive Yes [...]
--- OUTSIDE RECORDS SUMMARY | 2019-11-19 11:53 | XMS REPORT | Continuity of Care Document ---
Author Author Admin, BERNARDA De Paz [facility] Address Unknown Phone Unavailable Care Team Providers Care Associate Professor Of Biology Name Role Phone Toni HAWTHORNE, Alfredo WILBURN Unavailable Toni HAWTHORNE, Alfredo GUARDADO Unavailable Payers Payer name Insurance type Covered green party ID Authorization(s ) Part B WPS SM MB [id number] Supp Generic SP [id number] Problems Condition Effective Dates (start - stop) [...] Encounter Location Date Patient Visit Patient Visit [facility] Patient Visit [facility] [place] Patient Visit [facility] Advance Directives Directive Yes [...]
--- OUTSIDE RECORDS SUMMARY | 2019-11-19 11:53 | XMS REPORT | Continuity of Care Document ---
Author Author BERNARDA Narayan Organization [facility] Address [address] [place] [address] Phone Care Team Providers Care Supervisor Powdered Metal Name Role Phone Toni HAWTHORNE, Alfredo WILBURN Unavailable Toin HAWTHORNE, Alfredo GUARDADO Unavailable Payers Payer name Insurance type Covered alliance party ID Authorization(s ) Part B WPS MB [id number] Supp Generic SP [id number] Problems Condition Effective Dates (start - stop) [...] 1 tablet (10MG) by oral route kimberly day 10 MG - Active doxazosin 2 [...] Unknown Encounters Encounter Location Date Patient Visit [facility] [place] Patient Visit [facility] Patient Visit [facility] [place] Patient Visit [facility] Advance Directives Directive [...]
--- OUTSIDE RECORDS SUMMARY | 2019-11-19 11:53 | XMS REPORT | Continuity of Care Document ---
Author Author BERNARDA Buchanan [facility] Address [address] [address] Phone Care Team Providers Care Territory Sales Executive Name Role Phone Toni HAWTHORNE, Alfredo WILBURN Unavailable Toni HAWTHORNE, Alfredo RP Unavailable Payers Payer name Insurance type Covered constitution party ID Authorization(s ) Part B WPS MB [id number] Supp Generic SP [id number] Problems Condition Effective Dates (start - stop) [...] Encounters Encounter Location Date Patient Visit [facility] Patient Visit [facility] Patient Visit [facility] Advance Directives Directive Yes / [...]
--- OUTSIDE RECORDS SUMMARY | 2019-11-19 11:53 | XMS REPORT | Continuity of Care Document ---
Author Author Admin, BERNARDA De Paz [facility] Address Unknown Phone Unavailable Care Team Providers Care Optoelectronics Engineer Name Role Phone Toni HAWTHORNE, Alfredo WILBURN Unavailable Toni HAWTHORNE, Alfredo RP Unavailable Payers Payer name Insurance type Covered democrat ID Authorization(s ) Part B WPS SM MB [id number] Supp Generic SP [id number] Problems Condition Effective Dates (start - stop) [...] Encounter Location Date Patient Visit Patient Visit [facility] Patient Visit [facility] [place] Patient Visit [facility] Advance Directives Directive Yes / No Effective Date Resuscitation Yes 11/30/2013 Life Support Yes 11/30/2013 Intubation Yes 11/30/2013 Antibiotics Yes 11/30/2013 IV Fluid Support Yes 11/30/2013 WARNING:The information contained in this section is historical and is provided for information only and does not constitute a legal document or any assurance t hat the information is still accurate. Please verify the information with the ho lder of the legal document before using it for clinical purposes.
--- OUTSIDE RECORDS SUMMARY | 2019-11-19 11:53 | XMS REPORT | Continuity of Care Document ---
Author Author BERNARDA Alvarado [facility] Address Unknown Phone Unavailable Care Team Providers Care Comfort Advisor Name Role Phone Toni HAWTHORNE, Alfredo WILBURN Unavailable Toni HAWTHORNE, Alfredo RP Unavailable Payers Payer name Insurance type Covered libertarian ID Authorization(s ) Part B WPS MB [id number] Supp Generic OT [id number] Problems Condition Effective Dates (start - stop) [...] Unknown Encounters Encounter Location Date Patient Visit [facility] Patient Visit [facility] Patient Visit [facility] Advance Directives Directive Effective Date Unknown
--- OUTSIDE RECORDS SUMMARY | 2019-11-19 11:53 | XMS REPORT | Continuity of Care Document ---
Author Author BERNARDA Simpson Organization [facility] Address [address] [place] [address] Phone Care Team Providers Care Director Traffic And Planning Name Role Phone Toni HAWTHORNE, Alfredo WILBURN Unavailable Toni HAWTHORNE, Alfredo GUARDADO Unavailable Payers Payer name Insurance type Covered constitution party ID Authorization(s ) Part B WPS SM MB [id number] Supp Generic SP [id number] Problems Condition Effective Dates (start - stop) [...] Patient Visit [facility] [place] Patient Visit [facility] Patient Visit [facility] [place] Patient Visit [facility] [...]
--- OUTSIDE RECORDS SUMMARY | 2019-11-19 11:53 | XMS REPORT | Continuity of Care Document ---
Author Author BERNARDA Gaytan Organization [facility] more Address [address] [place] [address] Phone Care Team Providers Care Airplane Rental Clerk Name Role Phone Toni HAWTHORNE, Alfredo WILBURN Unavailable Toni HAWTHORNE, Alfredo RP Unavailable Payers Payer name Insurance type Covered republican ID Authorization(s ) Part B WPS MB [id number] Supp Generic SP [id number] Problems Condition Effective Dates (start - stop) [...] take 1 tablet (10MG) by oral route ikmberly day 10 MG - Active doxazosin 2 [...] Unknown Encounters Encounter Location Date Patient Visit [facility] [place] Patient [place] [facility] Patient Visit [facility] [place] Patient Visit [facility] Advance Directives Directive Yes / No Effective Date Resuscitation Yes 04/15/2013 Life Support Yes 04/15/2013 Intubation Yes 04/15/2013 Antibiotics Yes 04/15/2013 IV Fluid Support Yes 04/15/2013 WARNING:The information contained in this section is historical and is provided for information only and does not constitute a legal document or any assurance t hat the information is still accurate. Please verify the information with the ho lder of the legal document before using it for clinical purposes.
--- OUTSIDE RECORDS SUMMARY | 2019-11-19 11:53 | XMS REPORT | Continuity of Care Document ---
Author Author BERNARDA Narayan Organization [facility] Address [address] [place] [address] Phone Care Team Providers Care Graphics Specialist Name Role Phone Toni HAWTHORNE, Alfredo WILBURN Unavailable Toni HAWTHORNE, Alfredo GUARDADO Unavailable Payers Payer name Insurance type Covered green party ID Authorization(s ) Part B WPS [id number] Supp Generic OT [id number] Problems Condition Effective Dates (start - stop) [...] Unknown Encounters Encounter Location Date Patient Visit [facility] Patient Visit [facility] Patient Visit [facility] Advance Directives Directive Effective Date Unknown
--- OUTSIDE RECORDS SUMMARY | 2019-11-19 11:53 | XMS REPORT | Continuity of Care Document ---
Author Author Admin, BERNARDA De Paz [facility] Address Unknown Phone Unavailable Care Team Providers Care Skin Tanner Name Role Phone Toni HAWTHORNE, Alfredo WILBURN Unavailable Toni HAWTHORNE, Alfredo RP Unavailable Payers Payer name Insurance type Covered alliance party ID Authorization(s ) Part B WPS SM MB [id number] Supp Generic SP [id number] Problems Condition Effective Dates (start - stop) [...] Encounter Location Date Patient Visit Patient Visit [facility] Patient Visit [facility] [place] Patient Visit [facility] Advance Directives Directive Yes [...]
--- OUTSIDE RECORDS SUMMARY | 2019-11-19 11:53 | XMS REPORT | Continuity of Care Document ---
Author Author BERNARDA Gaytan Organization [facility] Address [address] [place] [address] Phone Care Team Providers Care Coin Machine Collector Name Role Phone Toni HAWTHORNE, Alfredo WILBURN Unavailable Toni HAWTHORNE, Alfredo GUARDADO Unavailable Payers Payer name Insurance type Covered libertarian ID Authorization(s ) Part B WPS MB [id number] Supp Generic SP [id number] Problems Condition Effective Dates (start - stop) [...] Unknown Encounters Encounter Location Date Patient Visit [facility] [place] Patient [facility] Patient Visit [facility] [place] Patient Visit [facility] Advance Directives Directive Yes / No Effective Date Resuscitation Yes 11/20/2013 Life Support Yes 11/20/2013 Intubation Yes 11/20/2013 Antibiotics Yes 11/20/2013 IV Fluid Support Yes 11/20/2013 WARNING:The information contained in this section is historical and is provided for information only and does not constitute a legal document or any assurance t hat the information is still accurate. Please verify the information with the ho lder of the legal document before using it for clinical purposes.
--- OUTSIDE RECORDS SUMMARY | 2019-11-19 11:54 | XMS REPORT | Continuity of Care Document ---
Author Author BERNARDA Narayan Organization [facility] Address [address] [place] [address] Phone Care Team Providers Care Millwright Supervisor Name Role Phone Toni HAWTHORNE, Alfredo WILBURN Unavailable Toni HAWTHORNE, Alfredo GUARDADO Unavailable Payers Payer name Insurance type Covered green party ID Authorization(s ) Part B WPS [id number] Supp Generic OT [id number] Problems Condition Effective Dates (start - stop) [...] Unknown Encounters Encounter Location Date Patient Visit [facility] Patient Visit [facility] [place] Patient Visit [facility] Advance Directives Directive Effective Date Unknown
--- OUTSIDE RECORDS SUMMARY | 2019-11-19 11:54 | XMS REPORT | Continuity of Care Document ---
Author Author Admin, BERNARDA De Paz [facility] Address Unknown Phone Unavailable Care Team Providers Care Digital Program Manager Name Role Phone Toni HAWTHORNE, Alfredo WILBURN Unavailable Toni HAWTHORNE, Alfredo RP Unavailable Payers Payer name Insurance type Covered green party ID Authorization(s ) Part B WPS MB [id number] Supp Generic OT [id number] Problems Condition Effective Dates (start - stop) [...] Encounter Location Date Patient Visit Patient Visit [facility] Patient Visit [facility] Advance Directives Directive Effective Date Unknown
--- OUTSIDE RECORDS SUMMARY | 2019-11-19 11:54 | XMS REPORT | Continuity of Care Document ---
Author Author Admin, BERNARDA De Paz [facility] Address Unknown Phone Unavailable Care Team Providers Care Radiology Manager Name Role Phone Toni HAWTHORNE, Alfredo WILBURN Unavailable Toni HAWTHORNE, Alfredo RP Unavailable Payers Payer name Insurance type Covered alliance party ID Authorization(s ) Part B WPS MB [id number] Supp Generic OT [id number] Problems Condition Effective Dates (start - stop) [...] Encounter Location Date Patient Visit Patient Visit [facility] Patient Visit [facility] Advance Directives Directive Effective Date Unknown
--- OUTSIDE RECORDS SUMMARY | 2019-11-19 11:54 | XMS REPORT | Continuity of Care Document ---
Author Author Admin, BERNARDA De Paz [facility] Address Unknown Phone Unavailable Care Team Providers Care Backer Up Name Role Phone Toni HAWTHORNE, Alfredo WILBURN Unavailable Toni HAWTHORNE, Alfredo RP Unavailable Payers Payer name Insurance type Covered democrat ID Authorization(s ) Part B WPS MB [id number] Supp Generic OT [id number] Problems Condition Effective Dates (start - stop) [...] Location Date Patient Visit Patient Visit [facility] Patient Visit [facility] Advance Directives Directive Effective Date Unknown
--- OUTSIDE RECORDS SUMMARY | 2019-11-19 11:54 | XMS REPORT | Continuity of Care Document ---
Author Author Admin, BERNARDA De Paz [facility] Address Unknown Phone Unavailable Care Team Providers Care Loop Tender Name Role Phone Toni HAWTHORNE, Alfredo WILBURN Unavailable Toni HAWTHORNE, Alfredo RP Unavailable Payers Payer name Insurance type Covered republican ID Authorization(s ) Part B WPS MB [id number] Supp Generic OT [id number] Problems Condition Effective Dates (start - stop) [...] Encounter Location Date Patient Visit Patient Visit [facility] Patient Visit [facility] Advance Directives Directive Effective Date Unknown
--- OUTSIDE RECORDS SUMMARY | 2019-11-19 11:54 | XMS REPORT | Continuity of Care Document ---
Author Author BERNARDA Buchanan Organization [facility] Address [address] [address] Phone Care Team Providers Care Patient Portal Concierge Name Role Phone PP Unavailable Payers Payer name Insurance type Covered constitution party ID Authorization(s ) Part B WPS MB [id number] Supp Generic OT [id number] Problems Condition Effective Dates (start - stop) Clinical Status Unknown Family History Family Member Diagnosis Age At Onset Status Unknown Social History Social History Element Description Quantity Unknown Allergies, Adverse Reactions, Alerts Substance Reaction Severity Status Unknown Medications Medication Instructions Dosage Effective Dates (start - sto p) Status Unknown Immunizations Vaccine Date Status Unknown Results Test Name Date and Time Measure Units Reference Range Abnormal F lag Comments Unknown Vital Signs Date / Time: Height Weight Pulse Rate Blood Pressure Temperat ure Unknown Procedures Procedure Date OFFICE/OUTPATIENT VISIT, EST Encounters Encounter Location Date Patient Visit [facility] [place] Advance Directives Directive Effective Date Unknown
--- OUTSIDE RECORDS SUMMARY | 2019-11-19 11:54 | XMS REPORT | Continuity of Care Document ---
Author Author Admin, BERNARDA De Paz [facility] Address Unknown Phone Unavailable Care Team Providers Care Cement Tester Assistant Name Role Phone Toni HAWTHORNE, Alfredo WILBURN Unavailable Toni HAWTHORNE, Alfredo RP Unavailable Payers Payer name Insurance type Covered constitution party ID Authorization(s ) Part B WPS MB [id number] Supp Generic OT [id number] Problems Condition Effective Dates (start - stop) [...] Date Patient Visit Patient Visit [facility] Patient Visit [facility] Advance Directives Directive Effective Date Unknown
--- OUTSIDE RECORDS SUMMARY | 2019-11-19 11:54 | XMS REPORT | Continuity of Care Document ---
Author Author Admin, BERNARDA De Paz [facility] Address Unknown Phone Unavailable Care Team Providers Care Self Propelled Mining Machine Operator Name Role Phone Toni HAWTHORNE, Alfredo WILBURN Unavailable Toni HAWTHORNE, Alfredo RP Unavailable Payers Payer name Insurance type Covered libertarian ID Authorization(s ) Part B WPS MB [id number] Supp Generic OT [id number] Problems Condition Effective Dates (start - stop) [...] Encounter Location Date Patient Visit Patient Visit [facility] Patient Visit [facility] Advance Directives Directive Effective Date Unknown
--- OUTSIDE RECORDS SUMMARY | 2019-11-19 11:54 | XMS REPORT | Continuity of Care Document ---
Author Author Admin, BERNARDA De Paz [facility] Address Unknown Phone Unavailable Care Team Providers Care Bike Designer Name Role Phone Toni HAWTHORNE, Alfredo WILBURN Unavailable Toni HAWTHORNE, Alfredo RP Unavailable Payers Payer name Insurance type Covered democrat ID Authorization(s ) Part B WPS MB [id number] Supp Generic OT [id number] Problems Condition Effective Dates (start - stop) [...] Encounter Location Date Patient Visit Patient Visit [facility] Patient Visit [facility] Advance Directives Directive Effective Date Unknown
--- OUTSIDE RECORDS SUMMARY | 2019-11-19 11:54 | XMS REPORT | Continuity of Care Document ---
Author Author BERNARDA Narayan Organization [facility] Address [address] [place] [phone] Phone Care Team Providers Care Table Machine Operator Name Role Phone Toni HAWTHORNE, Alfredo WILBURN Unavailable Toni HAWTHORNE, Alfredo GUARDADO Unavailable Payers Payer name Insurance type Covered democrat ID Authorization(s ) Part B WPS [id number] Supp Generic OT [id number] Problems Condition Effective Dates (start - stop) [...] Location Date Patient Visit Patient Visit [facility] Patient Visit [facility] Advance Directives Directive Effective Date Unknown
--- OUTSIDE RECORDS SUMMARY | 2019-11-19 11:54 | XMS REPORT | Continuity of Care Document ---
Author Author Admin, BERNARDA De Paz [facility] Address Unknown Phone Unavailable Care Team Providers Care Hand Stitcher Name Role Phone Toni HAWTHORNE, Alfredo WILBURN Unavailable Toni HAWTHORNE, Alfredo RP Unavailable Payers Payer name Insurance type Covered democrat ID Authorization(s ) Part B WPS MB [id number] Supp Generic OT [id number] Problems Condition Effective Dates (start - stop) [...] Encounter Location Date Patient Visit Patient Visit [facility] Patient Visit [facility] Advance Directives Directive Effective Date Unknown
--- OUTSIDE RECORDS SUMMARY | 2019-11-19 11:54 | XMS REPORT | Continuity of Care Document ---
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, 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[place] - Essential tremor - Loss of balance - Peripheral neuropathy, idiopathic - Family History Family Member Diagnosis Age At Onset Status Mother (Unknown) Cancer -lung Yes Father (Unknown) CVA (Stroke) Yes Social History Social History Element Description Quantity alcohol wine 1 glass caffeine 2 cups Allergies, Adverse Reactions, Alerts Substance Reaction Severity [...] Unknown Encounters Encounter Location Date Patient Visit [facility] Patient Visit [facility] Advance Directives Directive Effective Date Unknown
--- OUTSIDE RECORDS SUMMARY | 2019-11-19 11:54 | XMS REPORT | Continuity of Care Document ---
Author Author Admin, BERNARDA De Paz [facility] Address Unknown Phone Unavailable Care Team Providers Care Mid Teacher Name Role Phone Toni HAWTHORNE, Alfredo WILBURN Unavailable Toni HAWTHORNE, Alfredo RP Unavailable Payers Payer name Insurance type Covered alliance party ID Authorization(s ) Part B WPS MB [id number] Supp Generic OT [id number] Problems Condition Effective Dates (start - stop) [...] Encounter Location Date Patient Visit Patient Visit [facility] Patient Visit [facility] Advance Directives Directive Effective Date Unknown
--- OUTSIDE RECORDS SUMMARY | 2019-11-19 11:54 | XMS REPORT | Continuity of Care Document ---
Author Author Admin, BERNARDA De Paz [facility] Address Unknown Phone Unavailable Care Team Providers Care Electrician Supervisor Substation Name Role Phone Toni HAWTHORNE, Alfredo WILBURN Unavailable Toni HAWTHORNE, Alfredo RP Unavailable Payers Payer name Insurance type Covered alliance party ID Authorization(s ) Part B WPS MB [id number] Supp Generic OT [id number] Problems Condition Effective Dates (start - stop) [...] Encounter Location Date Patient Visit Patient Visit [facility] Patient Visit [facility] Advance Directives Directive Effective Date Unknown
--- OUTSIDE RECORDS SUMMARY | 2019-11-19 11:54 | XMS REPORT | Continuity of Care Document ---
Author Author BERNARDA Narayan Organization [facility] Address [address] [place] [phone] Phone Care Team Providers Care Hop Farm Worker Name Role Phone Toni HAWTHORNE, Alfredo WILBURN Unavailable Toni HAWTHORNE, Alfredo GUARDADO Unavailable Payers Payer name Insurance type Covered constitution party ID Authorization(s ) Part B WPS [id number] Supp Generic OT [id number] Problems Condition Effective Dates (start - stop) [...] Unknown Encounters Encounter Location Date Patient Visit [facility] Patient Visit [facility] [place] Patient Visit [facility] Advance Directives Directive Effective Date Unknown
--- OUTSIDE RECORDS SUMMARY | 2019-11-19 11:54 | XMS REPORT | Continuity of Care Document ---
Author Author Admin, BERNARDA De Paz [facility] Address Unknown Phone Unavailable Care Team Providers Care Spragger Name Role Phone Toni HAWTHORNE, Alfredo WILBURN Unavailable Toni HAWTHORNE, Alfredo RP Unavailable Payers Payer name Insurance type Covered green party ID Authorization(s ) Part B WPS MB [id number] Supp Generic OT [id number] Problems Condition Effective Dates (start - stop) [...] Unknown Encounters Encounter Location Date Patient Visit [facility] Patient Visit [facility] [place] Patient Visit [facility] Advance Directives Directive Effective Date Unknown
--- OUTSIDE RECORDS SUMMARY | 2019-11-19 11:54 | XMS REPORT | Continuity of Care Document ---
Author Author Admin, BERNARDA De Paz [facility] Address Unknown Phone Unavailable Care Team Providers Care Gas Station Cashier Name Role Phone Toni HAWTHORNE, Alfredo WILBURN Unavailable Toni HAWTHORNE, Alfredo RP Unavailable Payers Payer name Insurance type Covered libertarian ID Authorization(s ) Part B WPS MB [id number] Supp Generic OT [id number] Problems Condition Effective Dates (start - stop) [...] [facility] Advance Directives Directive Effective Date Unknown
--- OUTSIDE RECORDS SUMMARY | 2019-11-19 11:54 | XMS REPORT | Continuity of Care Document ---
Author Author BERNARDA Buchanan Organization [facility] Address [address] [facility] [address] [place] [phone] Phone Care Team Providers Care Quartz Miner Name Role Phone Toni HAWTHORNE, Alfredo WILBURN Unavailable Toni HAWTHORNE, Alfredo RP Unavailable Payers Payer name Insurance type Covered republican ID Authorization(s ) Part B WPS MB [id number] Supp Generic OT [id number] Problems Condition Effective Dates (start - stop) [...] Pressure Temperat ure Unknown Procedures Procedure Date Motor nerve conduction test Sense nerve conduction test Musc test done w/n test comp Encounters Encounter Location Date Patient Visit [facility] [place] Advance Directives Directive Effective Date Unknown
--- OUTSIDE RECORDS SUMMARY | 2019-11-19 11:54 | XMS REPORT | Continuity of Care Document ---
Author Author BERNARDA Gaytan Organization [facility] more Address [address] [place] [address] Phone Care Team Providers Care Endocrinology Physician Name Role Phone Toni HAWTHORNE, Alfredo WILBURN Unavailable Toni HAWTHORNE, Alfredo RP Unavailable Payers Payer name Insurance type Covered democrat ID Authorization(s ) Part B WPS [id number] Supp Generic OT [id number] Problems Condition Effective Dates (start - stop) [...] Effective Dates (start - sto p) Status HYDROCHLOROTHIAZIDE (unknown strength) 25mg twice daily - Active VITAMIN B-12 (unknown strength) take 1 daily - Active amlodipine 10 mg tablet take 1 tablet (10MG) by oral route kimberly day 10 MG - Active Tegretol XR 400 mg tablet,extended [...] take 4 tablets ever day - Active doxazosin 2 mg tablet tae 1 at bedtime - Active doxazosin 8 mg tablet take 1 tablet at bedtime 2011 - Active Immunizations Vaccine Date Status Unknown Results Test Name Date and Time Measure Units Reference Range Abnormal F lag Comments Unknown Vital Signs Date / Time: Height Weight Pulse Rate Blood Pressure Temperat ure /09:10:00 70.0 in 167.40 lbs 142/82 mm[Hg] Procedures Procedure Date OFFICE/OUTPATIENT VISIT, EST Encounters Encounter Location Date Patient Visit [facility] Patient Visit [facility] Advance Directives Directive Effective Date Unknown
--- OUTSIDE RECORDS SUMMARY | 2019-11-19 11:54 | XMS REPORT | Continuity of Care Document ---
Author Author Admin, BERNARDA De Paz [facility] Address Unknown Phone Unavailable Care Team Providers Care Supervisor Nut Processing Name Role Phone Toni HAWTHORNE, Alfredo WILBURN Unavailable Toni HAWTHORNE, Alfredo RP Unavailable Payers Payer name Insurance type Covered libertarian ID Authorization(s ) Part B WPS MB [id number] Supp Generic OT [id number] Problems Condition Effective Dates (start - stop) [...] Encounter Location Date Patient Visit Patient Visit [facility] Patient Visit [facility] Advance Directives Directive Effective Date Unknown
--- OUTSIDE RECORDS SUMMARY | 2019-11-19 11:55 | XMS REPORT | Continuity of Care Document ---
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 - Other symptoms involving [...] N Social History Type Description Quantity Date Smoking Status Never smoker packs per day Allergies, Adverse Reactions, Alerts Substance Reaction Severity Status No Known Allergies Unknown Active Medications Medication Instructions Dosage Effective Dates (start - stop) Sta tus Comments carbamazepine 100 mg chewable tablet take 1 tablet mid day - Active Vitamin D3 2,000 unit capsule take daily - Ac tive Tegretol XR 400 mg 12 hr Tab take 1 tablet twice daily Jun - Active labetalol 200 mg Tab take [...] take 1 tablet at bedtime - Active PROBIOTIC (unknown strength) - Active VITAMIN B-12 (unknown strength) take [...] Body Surface Area Head Circumference BMI percentile /10:45:00 70.00 in 170.00 lbs 24.39 120/80 mm[Hg] Procedures Procedure Date OFFICE/OUTPATIENT VISIT, EST Encounters Encounter Practice Location Reason(s) For Visit Diagnoses Date OFFICE/OUTPATIENT VISIT, EST [facility], [address] [place], [address] [facility] (chief complaint) Partial epilepsy, without mention of int ractable epilepsySensory peripheral neuropathyTremorLoss of balance Unknown [facility] Ayla [address]illo, [address] [place], [address] [facility] Pa rtial epilepsy, without mention of intractable epilepsyEssential tremorLoss of balancePeripheral neuropathy, idiopathic Unknown [facility] portillo, [address] [place], [address] [facility] Pa rtial epilepsy, without mention of intractable epilepsyHereditary TremorOther symptoms involving nervous and musculoskeletal systemsNeuropathy, peripheral NOS Unknown [facility] Ayla portillo, [address] [place], [address] [facility] [place] rtial epilepsy, without mention of intractable epilepsyHereditary Tremor Unknown [facility] Ayla portillo, [address] [facility], [place], [address] [facility] Pa rtial epilepsy, without mention [...]
--- OUTSIDE RECORDS SUMMARY | 2019-11-19 11:55 | XMS REPORT | Continuity of Care Document ---
Author Author Admin, BERNARDA De Paz [facility] Address Unknown Phone Unavailable Care Team Providers Care Freight Hustler Name Role Phone Toni HAWTHORNE, Alfredo WILBURN Unavailable Toni HAWTHORNE, Alfredo RP Unavailable Payers Payer name Insurance type Covered libertarian ID Authorization(s ) Part B WPS MB [id number] Supp Generic OT [id number] Problems Condition Effective Dates (start - stop) [...] Location Date Patient Visit Patient Visit [facility] Patient Visit [facility] Advance Directives Directive Effective Date Unknown
--- OUTSIDE RECORDS SUMMARY | 2019-11-19 11:55 | XMS REPORT | Continuity of Care Document ---
Author Author Admin, BERNARDA De Paz [facility] Address Unknown Phone Unavailable Care Team Providers Care Display Decorator Name Role Phone Toni HAWTHORNE, Alfredo WILBURN Unavailable Toni HAWTHORNE, Alfredo RP Unavailable Payers Payer name Insurance type Covered libertarian ID Authorization(s ) Part B WPS MB [id number] Supp Generic OT [id number] Problems Condition Effective Dates (start - stop) [...] Encounter Location Date Patient Visit Patient Visit [facility] Patient Visit [facility] Advance Directives Directive Effective Date Unknown
--- OUTSIDE RECORDS SUMMARY | 2019-11-19 11:55 | XMS REPORT | Continuity of Care Document ---
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 - Tremor - Loss of balance - Sensory peripheral neuropathy - Partial epilepsy, without mention of intractable [...] 81 mg Chewable Tab take 1 daily - Active multivitamin Cap take 1 capsule [...] (unknown strength) 50 mg daily - Active PROBIOTIC (unknown strength) - Active Immunizations Vaccine Date Status Comments Unknown Results Test Name Date and Time Measure Units Reference Range Abnormal F lag Comments Unknown Vital Signs Date / Time: Height Weight BMI Pulse Rate Blood Pressure Temperatu re Respiratory Rate Body Surface Area Head Circumference BMI percentile Unknown Procedures Procedure Date Unknown Encounters Encounter Practice Location Reason(s) For Visit Diagnoses Date Unknown [facility] [address]yla [place], [address] [place], [address] [facility] Unknown [facility] Ayla portillo, [address] [place], [address] [facility] [place] rtial epilepsy, without mention of intractable epilepsyEssential tremorLoss of balancePeripheral neuropathy, idiopathic Unknown [facility] Ayla portillo, [address] [place], [address] [facility] [place] rtial epilepsy, without mention of intractable epilepsyHereditary TremorOther symptoms involving nervous and musculoskeletal systemsNeuropathy, peripheral NOS Unknown [facility] Ayla portillo, [address] [place], [address] [facility] [place] rtial epilepsy, without mention of intractable epilepsyTremorLoss of balanceSensory peripheral neuropathy Unknown [facility] Ayla portillo, [address] [place], [address] [facility] [place] rtial epilepsy, without mention of intractable epilepsyHereditary Tremor Unknown [facility] Ayla moregiulia, [address] [facility], [place], [address] [facility] Pa rtial epilepsy, without [...]
--- OUTSIDE RECORDS SUMMARY | 2019-11-19 11:55 | XMS REPORT | Continuity of Care Document ---
Author Author Admin, BERNARDA De Paz [facility] Address Unknown Phone Unavailable Care Team Providers Care Put In Beat Adjuster Name Role Phone Toni HAWTHORNE, Alfredo WILBURN Unavailable Toni HAWTOHRNE, Alfredo RP Unavailable Payers Payer name Insurance type Covered libertarian ID Authorization(s ) Part B WPS MB [id number] Supp Generic OT [id number] Problems Condition Effective Dates (start - stop) [...] Encounter Location Date Patient Visit Patient Visit [facility] Patient Visit [facility] Advance Directives Directive Effective Date Unknown
--- OUTSIDE RECORDS SUMMARY | 2019-11-19 11:55 | XMS REPORT | Continuity of Care Document ---
Author Author BERNARDA Gaytan Organization [facility] Address [address] [place] [address] Phone Care Team Providers Care Printed Circuit Boards Contact Printer Name Role Phone Toni HAWTHORNE, Alfredo WILBURN Unavailable Toni HAWTHORNE, Alfredo RP Unavailable Payers Payer name Insurance type Covered republican ID Authorization(s ) Part B WPS [id number] Supp Generic OT [id number] Problems Condition Effective Dates (start - stop) [...] Unknown Encounters Encounter Location Date Patient Visit [facility] Patient Visit [facility] [place] Patient Visit [facility] Advance Directives Directive Effective Date Unknown
--- OUTSIDE RECORDS SUMMARY | 2019-11-19 11:55 | XMS REPORT | Continuity of Care Document ---
Author Organization Unknown Address Unknown Phone Unavailable Allergies Active Description Code Type Severity Reaction Onset Reported/Identified Relationship to Patient Clinical Status Yes No Known Drug Allergies [id number] Drug Allergy Unknown N/A 02/15/2019 Medications There is no data. Problems Date Dx Coded Attending Type Code Diagnosis Diagnosed By 07/04/2017 ARIANA GUZMAN MD, Ot C61 MALIGNANT NEOPLASM OF PROSTATE 08/24/2017 ARIANA GUZMAN MD, Ot C61 MALIGNANT NEOPLASM OF PROSTATE 08/24/2017 ARIANA GUZMAN MD Ot Z51.0 ENCOUNTER FOR ANTINEOPLASTIC RADIATION T 08/27/2017 ARIANA GUZMAN MD, Ot C61 MALIGNANT NEOPLASM OF PROSTATE 11/19/2017 ARIANA GUZMAN MD, Ot C61 MALIGNANT NEOPLASM OF PROSTATE 11/24/2017 ARIANA GUZMAN MD, Ot C61 MALIGNANT NEOPLASM OF PROSTATE 11/24/2017 ARIANA GUZMAN MD Ot Z51.0 ENCOUNTER FOR ANTINEOPLASTIC RADIATION T 02/15/2019 ARIANA GUZMAN MD, Ot C61 MALIGNANT NEOPLASM OF PROSTATE 02/15/2019 QUINN DO, BERNARD L Ot E86.0 DEHYDRATION 02/15/2019 QUINN DO, BERNARD L Ot K52.9 NONINFECTIVE GASTROENTERITIS AND COLITIS 02/15/2019 QUINN DO, BERNARD L Ot R11.2 NAUSEA WITH VOMITING, UNSPECIFIED 02/15/2019 ARIANA GUZMAN MD Ot C61 MALIGNANT NEOPLASM OF PROSTATE 02/17/2019 QUINN DO, BERNARD L Ot E86.0 DEHYDRATION 02/17/2019 QUINN DO, BERNARD L Ot K52.9 NONINFECTIVE GASTROENTERITIS AND COLITIS 02/17/2019 QUINN DO, BERNARD L Ot R11.2 NAUSEA WITH VOMITING, UNSPECIFIED 02/19/2019 MARCELLUS STOUT MD Ot E87. 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 1 ORTHOSTATIC HYPOTENSION 02/19/2019 MARCELLUS STOUT MD Ot K52. 9 NONINFECTIVE GASTROENTERITIS AND COLITIS 02/19/2019 MARCELLUS STOUT MD Ot M25.561 PAIN IN RIGHT KNEE 02/19/2019 MARCELLUS STOUT MD Ot R00. 1 BRADYCARDIA, UNSPECIFIED 02/19/2019 MARCELLUS STOUT MD, Ot R01. 1 CARDIAC MURMUR, UNSPECIFIED 02/19/2019 MARCELLUS STOUT MD Ot R07. 81 PLEURODYNIA 02/19/2019 MARCELLUS STOUT MD Ot R29. 6 REPEATED FALLS 02/19/2019 MARCELLUS STOUT MD Ot R79. 89 OTHER SPECIFIED ABNORMAL FINDINGS OF BLO 02/19/2019 MARCELLUS STOUT MD Ot S00.81XA ABRASION OF OTHER PART OF HEAD, INITIAL 02/19/2019 MARCELLUS STOUT MD Ot W18.39XA OTHER FALL ON SAME LEVEL, INITIAL ENCOUN 02/19/2019 MARCELLUS STOUT MD Ot Y92.[address] IN [facility] 02/19/2019 MARCELLUS STOUT MD, Ot Z87. 19 PERSONAL HISTORY OF OTHER DISEASES OF 02/19/2019 MARCELLUS STOUT MD Ot Z87.891 PERSONAL HISTORY OF NICOTINE DEPENDENCE 03/06/2019 MEGAN HAWTHORNE, ARIANA Tubbs Ot C61 MALIGNANT NEOPLASM OF PROSTATE 03/16/2019 TITO CASTELLANOS MD Ot G40.909 EPILEPSY, UNS, NOT INTRACTABLE, WITHOUT 03/16/2019 TITO CASTELLANOS MD Ot I10 ESSENTIAL (PRIMARY) HYPERTENSION 03/16/2019 TITO CASTELLANOS MD Ot K59. 00 CONSTIPATION, UNSPECIFIED 03/16/2019 TITO CASTELLANOS MD Ot R10. 31 RIGHT LOWER QUADRANT PAIN 03/16/2019 TITO CASTELLANOS MD Ot Z87. 19 PERSONAL HISTORY OF OTHER DISEASES OF 03/16/2019 TITO CASTELLANOS MD Ot Z90. 49 ACQUIRED ABSENCE OF OTHER SPECIFIED PART 03/19/2019 TITO CASTELLANOS MD, Ot G40.909 EPILEPSY, UNSP, NOT INTRACTABLE, WITHOUT 03/19/2019 TITO CASTELLANOS MD, Ot I10 ESSENTIAL (PRIMARY) HYPERTENSION 03/19/2019 TITO CASTELLANOS MD, Ot K59. 00 CONSTIPATION, UNSPECIFIED 03/19/2019 TITO CASTELLANOS MD, Ot R10. 31 RIGHT LOWER QUADRANT PAIN 03/19/2019 TITO CASTELLANOS MD, Ot Z87. 19 PERSONAL HISTORY OF OTHER DISEASES OF TH 03/19/2019 TITO CASTELLANOS MD, Ot Z90. 49 ACQUIRED ABSENCE OF OTHER SPECIFIED PART Procedures There is no data. Results Test Result Range Complete blood count (CBC) with automate d white blood cell (WBC) differential - 02/15/19 12:58 Blood leukocytes automated count (number/volume) 8.4 10*3/uL 4.3-11.0 Blood erythrocytes automated count (number/volume) 4.18 10*6/uL 4.35-5.85 Venous blood hemoglobin measurement (mass/volume) 12.9 g/dL 13.3-17.7 Blood hematocrit (volume fraction) 38 % 40-54 Automated erythrocyte mean corpuscular volume 92 [ foz_us] 80-99 Automated erythrocyte mean corpuscular h emoglobin (mass per erythrocyte) 31 pg 25-34 Automated erythrocyte mean corpuscular h emoglobin concentration measurement (mass/volume) 34 g/dL 32-36 Automated erythrocyte distribution width ratio 13. 5 % 10.0- 14.5 Automated blood platelet count (count/volume) 334 10*3/uL 130-400 Automated blood platelet mean volume measurement 9.5 [foz_us] 7.4-10.4 Automated blood neutrophils/100 leukocytes 80 % 42-75 Automated blood lymphocytes/100 leukocytes 10 % 12-44 Blood monocytes/100 leukocytes 7 % 0-12 Automated blood eosinophils/100 leukocytes 2 % 0-10 Automated blood basophils/100 leukocytes 0 % 0-10 Blood neutrophils automated count (number/volume) 6.7 10*3 1.8-7.8 Blood lymphocytes automated count (number/volume) 0.9 10*3 1.0-4.0 Blood monocytes automated count (number/volume) 0. 6 10*3 0.0-1.0 Automated eosinophil count 0.2 10*3/uL 0 .0-0.3 Automated blood basophil count (count/volume) 0.0 10*3/uL 0.0-0.1 Influenza virus A and B antigen detectio n - 02/15/19 12:58 FLU RESULT NEGATIVE FOR INFLUENZA A AND B ANTIGENS BY IA [facility] Comprehensive metabolic panel - 02/15/19 12:58 Serum or plasma sodium measurement (moles/volume) 143 mmol/L 135-145 Serum or plasma potassium measurement (moles/volume) 3.7 mmol/L 3.6-5.0 Serum or plasma chloride measurement (moles/volume) 98 mmol/L 98-107 Carbon dioxide 24 mmol/L 21-32 Serum or plasma anion gap determination (moles/volume) 21 mmol/L 5-14 Serum or plasma urea nitrogen measurement (mass/volume ) 47 mg/dL 7-18 Serum or plasma creatinine measurement (mass/volume) 2.01 mg/dL 0.60-1.30 Serum or plasma urea nitrogen/creatinine mass ratio 23 NR Serum or plasma creatinine measurement w ith calculation of estimated glomerular filtration rate 32 [facility] Serum or plasma glucose measurement (mass/volume) 114 mg/dL 70-105 Serum or plasma calcium measurement (mass/volume) 9.3 mg/dL 8.5-10.1 Serum or plasma total bilirubin measurement (mass/volu me) 0.4 mg/dL 0.1-1.0 Serum or plasma alkaline phosphatase hazel surement (enzymatic activity/volume) 83 U/L 40-136 Serum or plasma aspartate aminotransfera se measurement (enzymatic activity/volume) 25 U/L 5-34 Serum or plasma alanine aminotransferase measurement (enzymatic activity/volume) 26 U/L 0-55 Serum or plasma protein measurement (mass/volume) 7.4 g/dL 6.4-8.2 Serum or plasma albumin measurement (mass/volume) 4.1 g/dL 3.2-4.5 CALCIUM CORRECTED 9.2 mg/dL 8.5-10.1 Lipase - 02/15/19 12:58 Lipase 38 U/L 8-78 Blood CBC with ordered manual differenti al panel - 02/17/19 16:17 Blood leukocytes automated count (number/volume) 8.6 10*3/uL 4.3-11.0 Blood erythrocytes automated count (number/volume) 3.92 10*6/uL 4.35-5.85 Venous blood hemoglobin measurement (mass/volume) 12.1 g/dL 13.3-17.7 Blood hematocrit (volume fraction) 36 % 40-54 Automated erythrocyte mean corpuscular volume 91 [ [facility]_us] 80-99 Automated erythrocyte mean corpuscular h emoglobin (mass per erythrocyte) 31 pg 25-34 Automated erythrocyte mean corpuscular h emoglobin concentration measurement (mass/volume) 34 g/dL 32-36 Automated erythrocyte distribution width ratio 13. 2 % 10.0- 14.5 Automated blood platelet count (count/volume) 332 10*3/uL 130-400 Automated blood platelet mean volume measurement 9.7 [z_us] 7.4-10.4 Automated blood neutrophils/100 leukocytes 94 % 42-75 Automated blood lymphocytes/100 leukocytes 7 % 12-44 Blood monocytes/100 leukocytes 5 % NRG Automated blood eosinophils/100 leukocytes 2 % 0-10 Automated blood basophils/100 leukocytes 0 % 0-10 Blood neutrophils automated count (number/volume) 7.2 10*3 1.8-7.8 Blood lymphocytes automated count (number/volume) 0.6 10*3 1.0-4.0 Blood monocytes automated count (number/volume) 0. 6 10*3 0.0-1.0 Automated eosinophil count 0.2 10*3/uL 0 .0-0.3 Automated blood basophil count (count/volume) 0.0 10*3/uL 0.0-0.1 Manual blood segmented neutrophils/100 leukocytes 80 % NRG Blood band neutrophils/100 leukocytes 5 % NRG Manual blood lymphocytes/100 leukocytes 7 % NRG Manual eosinophils/100 leukocytes in nose 2 % NRG Manual blood basophils/100 leukocytes 1 % NRG Blood erythrocyte morphology finding identification NORMAL [facility] Whole blood basic metabolic panel - 01/24 05/13 16:17 Serum or plasma sodium measurement (moles/volume) 140 mmol/L 135-145 Serum or plasma potassium measurement (moles/volume) 3.4 mmol/L 3.6-5.0 Serum or plasma chloride measurement (moles/volume) 98 mmol/L 98-107 Carbon dioxide 18 mmol/L 21-32 Serum or plasma anion gap determination (moles/volume) 24 mmol/L 5-14 Serum or plasma urea nitrogen measurement (mass/volume ) 35 mg/dL 7-18 Serum or plasma creatinine measurement (mass/volume) 1.85 mg/dL 0.60-1.30 Serum or plasma urea nitrogen/creatinine mass ratio 19 NRG Serum or plasma creatinine measurement w ith calculation of estimated glomerular filtration rate 35 NRG Serum or plasma glucose measurement (mass/volume) 103 mg/dL 70-105 Serum or plasma calcium measurement (mass/volume) 9.0 mg/dL 8.5-10.1 TROPONIN T - 02/17/19 16:17 TROPONIN T 43 % <=15 PT panel in platelet poor plasma by coag ulation assay - 02/17/19 16:17 Prothrombin time (PT) in platelet poor plasma by coagu lation assay 13.2 s 12.2-14.7 INR in platelet poor plasma or blood by coagulation as say 1.0 0.8-1.4 Activated partial thromboplastin time (a PTT) in platelet poor plasma bycoagulation assay - 02/17/19 16:17 Activated partial thromboplastin time (a PTT) in platelet poor plasma bycoagulation assay 30 s 24-35 THYROID STIMULATING HORMONE - 02/17/19 1 6:17 THYROID STIMULATING HORMONE 1.66 u[iU]/mL 0.35-4.94 Serum or plasma carbamazepine measuremen t (mass/volume) - 02/17/19 16:17 Serum or plasma carbamazepine measurement (mass/volume ) 11.6 ug/mL 4.0-12.0 Serum or plasma troponin i.cardiac measu rement (mass/volume) - 02/17/19 20:25 Serum or plasma troponin i.cardiac measurement (mass/v olume) < ng/mL <0.028 Comprehensive metabolic panel - 02/18/19 04:00 Serum or plasma sodium measurement (moles/volume) 143 mmol/L 135-145 Serum or plasma potassium measurement (moles/volume) 2.9 mmol/L 3.6-5.0 Serum or plasma chloride measurement (moles/volume) 106 mmol/L 98-107 Carbon dioxide 23 mmol/L 21-32 Serum or plasma anion gap determination (moles/volume) 14 mmol/L 5-14 Serum or plasma urea nitrogen measurement (mass/volume ) 29 mg/dL 7-18 Serum or plasma creatinine measurement (mass/volume) 1.62 mg/dL 0.60-1.30 Serum or plasma urea nitrogen/creatinine mass ratio 18 NRG Serum or plasma creatinine measurement w ith calculation of estimated glomerular filtration rate 41 NRG Serum or plasma glucose measurement (mass/volume) 93 mg/dL 70-105 Serum or plasma calcium measurement (mass/volume) 8.4 mg/dL 8.5-10.1 Serum or plasma total bilirubin measurement (mass/volu me) 0.3 mg/dL 0.1-1.0 Serum or plasma alkaline phosphatase hazel surement (enzymatic activity/volume) 76 U/L 40-136 Serum or plasma aspartate aminotransfera se measurement (enzymatic activity/volume) 31 U/L 5-34 Serum or plasma alanine aminotransferase measurement (enzymatic activity/volume) 41 U/L 0-55 Serum or plasma protein measurement (mass/volume) 6.0 g/dL 6.4-8.2 Serum or plasma albumin measurement (mass/volume) 3.6 g/dL 3.2-4.5 CALCIUM CORRECTED 8.7 mg/dL 8.5-10.1 Serum or plasma troponin i.cardiac measu rement (mass/volume) - 02/18/19 04:00 Serum or plasma troponin i.cardiac measurement (mass/v olume) < ng/mL <0.028 Automated blood complete blood count (he mogram) panel - 02/19/19 05:35 Blood leukocytes automated count (number/volume) 8.5 10*3/uL 4.3-11.0 Blood erythrocytes automated count (number/volume) 3.71 10*6/uL 4.35-5.85 Venous blood hemoglobin measurement (mass/volume) 11.8 g/dL 13.3-17.7 Blood hematocrit (volume fraction) 34 % 40-54 Automated erythrocyte mean corpuscular volume 91 [ foz_us] 80-99 Automated erythrocyte mean corpuscular h emoglobin (mass per erythrocyte) 32 pg 25-34 Automated erythrocyte mean corpuscular h emoglobin concentration measurement (mass/volume) 35 g/dL 32-36 Automated erythrocyte distribution width ratio 13. 6 % 10.0- 14.5 Automated blood platelet count (count/volume) 282 10*3/uL 130-400 Automated blood platelet mean volume measurement 9.9 [foz_us] 7.4-10.4 Comprehensive metabolic panel - 02/19/19 05:35 Serum or plasma sodium measurement (moles/volume) 140 mmol/L 135-145 Serum or plasma potassium measurement (moles/volume) 3.6 mmol/L 3.6-5.0 Serum or plasma chloride measurement (moles/volume) 108 mmol/L 98-107 Carbon dioxide 24 mmol/L 21-32 Serum or plasma anion gap determination (moles/volume) 8 mmol/L 5-14 Serum or plasma urea nitrogen measurement (mass/volume ) 23 mg/dL 7-18 Serum or plasma creatinine measurement (mass/volume) 1.24 mg/dL 0.60-1.30 Serum or plasma urea nitrogen/creatinine mass ratio 19 NRG Serum or plasma creatinine measurement w ith calculation of estimated glomerular filtration rate 56 NRG Serum or plasma glucose measurement (mass/volume) 96 mg/dL 70-105 Serum or plasma calcium measurement (mass/volume) 8.8 mg/dL 8.5-10.1 Serum or plasma total bilirubin measurement (mass/volu me) 0.3 mg/dL 0.1-1.0 Serum or plasma alkaline phosphatase hazel surement (enzymatic activity/volume) 84 U/L 40-136 Serum or plasma aspartate aminotransfera se measurement (enzymatic activity/volume) 30 U/L 5-34 Serum or plasma alanine aminotransferase measurement (enzymatic activity/volume) 36 U/L 0-55 Serum or plasma protein measurement (mass/volume) 6.5 g/dL 6.4-8.2 Serum or plasma albumin measurement (mass/volume) 3.6 g/dL 3.2-4.5 CALCIUM CORRECTED 9.1 mg/dL 8.5-10.1 Magnesium - 02/19/19 05:35 Magnesium 1.8 mg/dL 1.8-2.4 Complete blood count (CBC) with automate d white blood cell (WBC) differential - 03/16/19 18:13 Blood leukocytes automated count (number/volume) 11.5 10*3/uL 4.3-11.0 Blood erythrocytes automated count (number/volume) 3.66 10*6/uL 4.35-5.85 Venous blood hemoglobin measurement (mass/volume) 11.5 g/dL 13.3-17.7 Blood hematocrit (volume fraction) 34 % 40-54 Automated erythrocyte mean corpuscular volume 92 [ foz_us] 80-99 Automated erythrocyte mean corpuscular h emoglobin (mass per erythrocyte) 31 pg 25-34 Automated erythrocyte mean corpuscular h emoglobin concentration measurement (mass/volume) 34 g/dL 32-36 Automated erythrocyte distribution width ratio 13. 2 % 10.0- 14.5 Automated blood platelet count (count/volume) 298 10*3/uL 130-400 Automated blood platelet mean volume measurement 9.8 [foz_us] 7.4-10.4 Automated blood neutrophils/100 leukocytes 84 % 42-75 Automated blood lymphocytes/100 leukocytes 6 % 12-44 Blood monocytes/100 leukocytes 8 % 0-12 Automated blood eosinophils/100 leukocytes 1 % 0-10 Automated blood basophils/100 leukocytes 0 % 0-10 Blood neutrophils automated count (number/volume) 9.7 10*3 1.8-7.8 Blood lymphocytes automated count (number/volume) 0.7 10*3 1.0-4.0 Blood monocytes automated count (number/volume) 1. 0 10*3 0.0-1.0 Automated eosinophil count 0.1 10*3/uL 0 .0-0.3 Automated blood basophil count (count/volume) 0.0 10*3/uL 0.0-0.1 Blood manual differential performed dete ction - 03/16/19 18:13 Blood monocytes/100 leukocytes 6 % NRG Manual blood segmented neutrophils/100 leukocytes 80 % NRG Blood band neutrophils/100 leukocytes 4 % NRG Manual blood lymphocytes/100 leukocytes 8 % NRG Manual eosinophils/100 leukocytes in nose 2 % NRG Comprehensive metabolic panel - 03/16/19 18:13 Serum or plasma sodium measurement (moles/volume) 143 mmol/L 135-145 Serum or plasma potassium measurement (moles/volume) 3.4 mmol/L 3.6-5.0 Serum or plasma chloride measurement (moles/volume) 100 mmol/L 98-107 Carbon dioxide 36 mmol/L 21-32 Serum or plasma anion gap determination (moles/volume) 7 mmol/L 5-14 Serum or plasma urea nitrogen measurement (mass/volume ) 24 mg/dL 7-18 Serum or plasma creatinine measurement (mass/volume) 1.63 mg/dL 0.60-1.30 Serum or plasma urea nitrogen/creatinine mass ratio 15 NRG Serum or plasma creatinine measurement w ith calculation of estimated glomerular filtration rate 41 NRG Serum or plasma glucose measurement (mass/volume) 142 mg/dL 70-105 Serum or plasma calcium measurement (mass/volume) 9.4 mg/dL 8.5-10.1 Serum or plasma total bilirubin measurement (mass/volu me) 0.2 mg/dL 0.1-1.0 Serum or plasma alkaline phosphatase hazel surement (enzymatic activity/volume) 83 U/L 40-136 Serum or plasma aspartate aminotransfera se measurement (enzymatic activity/volume) 20 U/L 5-34 Serum or plasma alanine aminotransferase measurement (enzymatic activity/volume) 19 U/L 0-55 Serum or plasma protein measurement (mass/volume) 7.2 g/dL 6.4-8.2 Serum or plasma albumin measurement (mass/volume) 4.0 g/dL 3.2-4.5 CALCIUM CORRECTED 9.4 mg/dL 8.5-10.1 Complete urinalysis with reflex to cultu re - 10/25/19 19:15 Urine color determination YELLOW NRG Urine clarity determination CLEAR NR G Urine pH measurement by test strip 6.5 5-9 Specific gravity of urine by test strip 1.025 1.016-1.022 Urine protein assay by test strip, semi-quantitative 2+ NEGATIVE Urine glucose detection by automated test strip NE GATIVE NEGATIVE Erythrocytes detection in urine sediment by light micr oscopy NEGATIVE NEGATIVE Urine ketones detection by automated test strip NE GATIVE NEGATIVE Urine nitrite detection by test strip NEGATIVE NEGATIVE Urine total bilirubin detection by test strip NEGA TIVE NEGATIVE Urine urobilinogen measurement by automated test strip (mass/volume) 0.2 mg/dL < = 1.0 Urine leukocyte esterase detection by dipstick NEG ATIVE NEGATIVE Automated urine sediment erythrocyte cou nt by microscopy (number/high power field) NONE NRG Automated urine sediment leukocyte count by microscopy (number/high power field) NONE NRG Bacteria detection in urine sediment by light microsco py NEGATIVE NRG Crystals detection in urine sediment by light microsco py NONE NRG Casts detection in urine sediment by light microscopy NONE NRG Mucus detection in urine sediment by light microscopy MODERATE NRG Complete urinalysis with reflex to culture NO NRG Complete blood count (CBC) with automate d white blood cell (WBC) differential - 10/25/19 19:30 Blood leukocytes automated count (number/volume) 10.6 10*3/uL 4.3-11.0 Blood erythrocytes automated count (number/volume) 3.95 10*6/uL 4.35-5.85 Venous blood hemoglobin measurement (mass/volume) 12.1 g/dL 13.3-17.7 Blood hematocrit (volume fraction) 37 % 40-54 Automated erythrocyte mean corpuscular volume 93 [ foz_us] 80-99 Automated erythrocyte mean corpuscular h emoglobin (mass per erythrocyte) 31 pg 25-34 Automated erythrocyte mean corpuscular h emoglobin concentration measurement (mass/volume) 33 g/dL 32-36 Automated erythrocyte distribution width ratio 13. 7 % 10.0- 14.5 Automated blood platelet count (count/volume) 350 10*3/uL 130-400 Automated blood platelet mean volume measurement 9.1 [foz_us] 7.4-10.4 Automated blood neutrophils/100 leukocytes 92 % 42-75 Automated blood lymphocytes/100 leukocytes 4 % 12-44 Blood monocytes/100 leukocytes 4 % 0-12 Automated blood eosinophils/100 leukocytes 0 % 0-10 Automated blood basophils/100 leukocytes 0 % 0-10 Blood neutrophils automated count (number/volume) 9.8 10*3 1.8-7.8 Blood lymphocytes automated count (number/volume) 0.4 10*3 1.0-4.0 Blood monocytes automated count (number/volume) 0. 4 10*3 0.0-1.0 Automated eosinophil count 0.0 10*3/uL 0 .0-0.3 Automated blood basophil count (count/volume) 0.0 10*3/uL 0.0-0.1 Manual absolute plasma cell count - 12/13 19:30 Blood monocytes/100 leukocytes 2 % NR Manual blood segmented neutrophils/100 leukocytes 95 % NRG Manual blood lymphocytes/100 leukocytes 2 % NRG Blood lymphocytes variant/100 leukocytes 1 % NR Blood poikilocytosis detection by light microscopy SLIGHT NRG Blood microcytes detection by light microscopy SLI T [facility] Comprehensive metabolic panel - 10/25/19 19:30 Serum or plasma sodium measurement (moles/volume) 141 mmol/L 135-145 Serum or plasma potassium measurement (moles/volume) 3.4 mmol/L 3.6-5.0 Serum or plasma chloride measurement (moles/volume) 100 mmol/L 98-107 Carbon dioxide 27 mmol/L 21-32 Serum or plasma anion gap determination (moles/volume) 14 mmol/L 5-14 Serum or plasma urea nitrogen measurement (mass/volume ) 24 mg/dL 7-18 Serum or plasma creatinine measurement (mass/volume) 1.41 mg/dL 0.60-1.30 Serum or plasma urea nitrogen/creatinine mass ratio 17 NRG Serum or plasma creatinine measurement w ith calculation of estimated glomerular filtration rate 48 NRG Serum or plasma glucose measurement (mass/volume) 128 mg/dL 70-105 Serum or plasma calcium measurement (mass/volume) 9.3 mg/dL 8.5-10.1 Serum or plasma total bilirubin measurement (mass/volu me) 0.3 mg/dL 0.1-1.0 Serum or plasma alkaline phosphatase hazel surement (enzymatic activity/volume) 62 U/L 40-136 Serum or plasma aspartate aminotransfera se measurement (enzymatic activity/volume) 19 U/L 5-34 Serum or plasma alanine aminotransferase measurement (enzymatic activity/volume) 18 U/L 0-55 Serum or plasma protein measurement (mass/volume) 7.5 g/dL 6.4-8.2 Serum or plasma albumin measurement (mass/volume) 4.2 g/dL 3.2-4.5 CALCIUM CORRECTED 9.1 mg/dL 8.5-10.1 PROBNP FS - 10/25/19 19:30 PROBNP FS 1418.0 pg/mL <75.0 Lipase - 10/25/19 19:30 Lipase 36 U/L 8-78 Encounters ACCT No. Visit Date/Time Discharge Status Pt. Type Provider Facility Loc./Unit Complaint [id number] 10/25/2019 19:14:00 20:44:00 DIS Emergency TITO CASTELLANOS MD [facility] ER FS NAUSEA/VOMITTING [id number] 03/16/2019 17:22:00 20:53:00 DIS Emergency TITO CASTELLANOS MD [facility] ER FS RT SIDE ABD PAIN [id number] 02/17/2019 16:50:00 15:36:00 DIS Inpatient ARGELIA HAWTHORNE, MARCELLUS Bower [facility] 4TH RECURRENT SYNCOPE [id number] 02/15/2019 12:20:00 03/24/2 019 15:45:00 DIS Emergency QUINN BERNARD KNOX [facility] ER FS VOMITING,DIARRHEA [id number] 11/25/2017 00:17:00 018 23:59:59 CLS Preadmit MEGAN HAWTHORNE, ARIANA butler [facility] ONC [id number] 10/16/2017 12:34:00 017 00:01:00 DIS Outpatient MEGAN HAWTHORNE, ARIANA Potter [facility] ONC [id number] 08/23/2017 12:40:00 017 00:01:00 DIS Outpatient MEGAN HAWTHORNE, ARIANA Potter [facility] ONC [id number] 06/10/2017 14:22:00 017 23:59:59 CLS Preadmit LINDEN HAWTHORNE, JAIDA butler [facility] RAD CA PROSTATE
--- OUTSIDE RECORDS SUMMARY | 2019-11-19 11:55 | XMS REPORT | Continuity of Care Document ---
Author Author [facility] G l[facility]sey Organization [facility] G rou Address Unknown Phone Unavailable Care Team Providers Care Dental Front Office Assistant Name Role Phone Alfredo Muñoz PCP Unavailable Allergies, Adverse Reactions, Alerts Substance Reaction Severity [...] take 1 tablet twice daily - Active multivitamin Cap take 1 capsule by oral route every day Not Candy ilable - Active amlodipine 10 mg Tab take 1 tablet (10MG) by oral route every day 10 MG - Active doxazosin 2 mg Tab tae 1 at bedtime - Active doxazosin 8 mg Tab take 1 tablet at bedtime - Active aspirin 81 mg tablet,delayed release take 1 tablet by oral r oute every day 81 MG - Active VITAMIN B-12 (unknown strength) take 1 daily - Ac tive HYDROCHLOROTHIAZIDE (unknown strength) 50 mg daily - Active PROBIOTIC (unknown strength) - Active Problems Condition Effective Dates (start - stop) Clinical Status Idiopathic peripheral neuropathy - Active Procedures Procedure Date OFFICE/OUTPATIENT VISIT, EST Results Test Name Date and Time Measure Units Reference Range Abnormal F lag Comments Unknown Advance Directives Directive Yes / No Effective Date File Name Other Directive No N/A N/A WARNING:The information contained in this section is historical and is provided for information only and does not constitute a legal document or any assurance t hat the information is still accurate. Please verify the information with the ho lder of the legal document before using it for clinical purposes. Encounters Encounter Description Practice Location Reason(s) For Visit Diagnose s Date Provider Care Team Members OFFICE/OUTPATIENT VISIT, [facility] , [id number] [place] [address], [id number], [facility] Convulsions (chief complaint) Essential tremorPartial symptomatic epil epsy with complex partial seizures, not intractable, without status epilepticusCryptogenic sensory polyneuropathyLoss of balance Feroz Muller. [address], [facility], . tel:[phone] Referring Provider: Alfredo Muñoz, [address] [place] [address], [facility]. tel:[phone] [facility] Ayla portillo, [id number] [place] [address], [facility], [facility] Pa rtial epilepsy, without mention of intractable epilepsyTremorLoss of balanceSensory peripheral neuropathy Feroz Muller. [address], [facility], . tel:[phone] Referring Provider: Alfredo Muñoz, [address] [place] [address], [facility]. tel:[phone] [facility] Anil portillo, [id number] [place] [address], [phone], [facility] rtial epilepsy, without mention of intractable epilepsyHereditary TremorOther symptoms involving nervous and musculoskeletal systemsNeuropathy, peripheral NOS Feroz Muller. [address], [facility], [place]. tel:[phone] Referring Provider: Alfredo Muñoz, [address] [place], [place], [facility]. tel:[phone] [facility] Anil portillo, [address] [place] [address], [id number], [facility] rtial epilepsy, without mention of intractable epilepsyHereditary TremorOther symptoms involving nervous and musculoskeletal systemsNeuropathy, peripheral NOS Feroz Muller. [address] [place] [address], [facility], . tel:[phone] Referring Provider: Alfredo Muñoz, [address] [place], [place], [facility]. tel:[phone] [facility] Ayla portillo, [address] [place] [address], [address] [place] [address] [facility], without mention of intractable epilepsyEssential tremorLoss of balancePeripheral neuropathy, idiopathic Feroz Muller. [address] [place] [address], [facility], . tel:[phone] Referring Provider: Alfredo Muñoz, [address] [place], [place], [facility]. tel:[phone] [facility] Anil portillo, [address] [place] [address], [facility], [facility] rtial epilepsy, without mention of intractable epilepsyHereditary Tremor Feorz Muller. [address] [place] [address], [facility], . tel:[phone] Family History Family Member Diagnosis Age At Onset Father Mother Mother Cancer -lung (Cause Of ) Father Stroke (Cause Of ) Immunizations Vaccine Date Status Comments Unknown Payers Payer name Insurance type Covered green party ID Authorization(s ) Part B [facility]PS [facility] [id number] Supp Generic CI [id number] Social History Type Description Quantity Date Captured Alcohol Use Details No Caffeine Use Details No Tobacco Use Status Unknown Smoking Status Never smoker Vital Signs Date / Time: Height Weight BMI Pulse Rate Blood Pressure Temperatu re Respiratory Rate Body Surface Area Head Circumference BMI percentile /09:10:00 69.00 in 175.20 lbs 25.87 kg/meter(2) 132/7 8 mm[Hg] Chief Complaint And Reason For Visit Most recent encounter only, dated '12/29/2015 10:15'. Convulsions (chief complaint) Reason For Referral Reason For Referral Unknown Plan Of Care Date Type Action Status Referral Ordered: [id number] ordered Referral Ordered: [id number] ordered Referral Ordered: [id number] ordered Referral Ordered: [id number] ordered Referral Ordered: [id number] ordered Referral Ordered: [id number] ordered Referral Ordered: [id number] ordered Referral Ordered: [id number] ordered Referral Ordered: Comp Metabolic Panel [id number] ordered Referral Ordered: CBC and Plt w Diff [id number] ordered Referral Ordered: Carbamazepine (Tegretol) Level Free [id number] ordered Future Order: Lab Order CPK Total [id number] ([id number]) Ordered Future Order: Lab Order Aldolase [id number] ( [id number]) Ordered Future Order: Lab Order Myoglobin Serum QuaNT [id number] ([id number]) Ordered Future Order: Lab Order Myoglobin Ur Ran dom QuaNT [id number] ([id number]) Ordered Future Order: Lab Order Sed Rate Automated [id number] ([id number]) Ordered Future Order: Lab Order C Reactive Protein [id number] ([id number]) Ordered Future Order: Lab Order Anti-nuclear Ab - Sendout [id number] ([id number]) Ordered Future Order: Lab Order Rheumatoid Factor [id number] ([id number]) Ordered Future Order: Lab Order CBC and Plt w Di ff [id number] ([id number]) Ordered Future Order: Lab Order Comp Metabolic P nupur [id number] ([id number]) Ordered Future Order: Lab Order Vitamin D 25 [place] [id number] ([id number]) Ordered Future Order: Lab Order Carbamazepine (T egretol) Level Free [id number] ([id number]) Ordered Date Type Problem Goal Intervention Status Start D ate Unknown. History Of Present Illness Encounter Date Complaint History Of Present Jessica mancini Convulsions (comments) Problem: 75-year- old right-handed male who was seen in follow-up. He was unaccompanied at today's visit as his is now residing in a [facility] in [place], [place]. 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 He is well controlled on carbamazepine a supply of which he obtained from [facility]. Dosages include 400 mg extended release morning and evening and 100 mg chewable tablet midday. Recent drug levels stable. Parenthesis 12/21/2014) = 7.9.(11/03/2015) = 7.2. Values are usually around 8. No changes were recommended. Denies drug-related side effects such as dizziness, double vision. Essential Tremor: most likely what it represents though it came only a few years ago. No parkinsonian features. Intensity fluctuates depending upon fatigue, stress and being too cold. No definite interference with gross and fine motor control. No involvement of head, voice or Chin. No treatment recommended unless he was so desire.Loss of Balance: His most significant disability. He has multiple nightlights on so that he will not fall at night, was be cautious when standing shaving and, in other situations for, he has a tendency to fall backward. He does not do much work in the yard because of instability and, is always aware of the need to watch his balance the matter what he does. If you have been present for several years. Has had some physical therapy in the past.Cryptogenic Sensory Polyneuropathy: Aware of sensory deficits but, denies significant painful component or unrecognized skin injury with neurotrophic ulcer. May play some role in balance impairment. Has also been present for several years. 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 Also demonstrated superimposed, regenerative phase left L5 radiculopathyOn a sad note, his Danika has become severely demented. Following a rapid course. Forgetfulness was 1st noted by his sister about 18 months ago. Initial evaluation by a neurologist in his area. 2nd opinion obtained from Dementia Specialist Ronnie Salter M.D. of the Division of Aging at [facility]. Dr. Salter told Mr. 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 He was told there were 3 components to her dementia though Mr. Tran could not recall what they were. He stated that she did not have myoclonic jerks and did not undergo lumbar puncture. She went through a paranoid phase and, is now in a closed dementia unit, in [place], [place] Convulsions Functional Status Encounter Date Functional Assessment Cognitive Assessme nt Unknown Medications Administered Medication Instructions Dosage Effective Dates (start - stop) Sta tus Comments Drug Treatment Unknown Instructions Date Instruction Additional Informati on Avoid high risk activity due to seizures /LOC Continue current medication Maintain diary of seizures Activity as tolerated Increase activity level Protective activity Do not stop meds when sx resolve Reviewed medications
--- OUTSIDE RECORDS SUMMARY | 2019-11-19 11:55 | XMS REPORT | Continuity of Care Document ---
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 Problem 04/09/2016 [facility] Partial epilepsy, without mention of int Active [facility] Other symptoms involving nervous and mus Active [facility] Partial epilepsy, without mention of intractable epil Active [facility] Other symptoms involving nervous and musculoskeletal Active [facility] Partial epilepsy, without mention of int ractable epilepsy Diagnosis 03/04/2016 [facility] Essential tremor Diagnosis 03/04/2016 [facility] Loss of balance Diagnosis 03/04/2016 [facility] Peripheral neuropathy, idiopathic Diagnosis 0 03/04/2016 [facility] 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 [facility] Other symptoms involving nervous and mus culoskeletal systems Diagnosis 03/04/2016 [facility] Neuropathy, peripheral NOS Diagnosis 03/04/2016 [facility] Ayla roup Tremor Diagnosis 03/04/2016 [facility] Sensory peripheral neuropathy Diagnosis 03/04/2016 [facility] Ayla roup Partial symptomatic epilepsy with comple x partial seizures, not intractable, without status epilepticus Diagnosis 03/04/2016 [facility] Anil Aguila roup Essential tremor Diagnosis 03/04/2016 [facility] Loss of balance Diagnosis 03/04/2016 [facility] 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 [facility] Anil portillo Past Medical History Unknown Diagnosis 05/14/2012 [facility] Anil portillo Medications Medication Details Route Status Patient Instructions Ordering Provider Order Date Source carbamazepine 100 mg chewable tablet take 1 tablet mid day ORAL Active 08/12/2014 [facility] Vitamin D3 2,000 unit capsule take daily ORAL Active 01/22/2014 [facility] Tegretol XR 400 mg tablet,extended release take 1 tablet twice daily ORAL Active 07/09/2012 [facility] carbamazepine 100 mg chewable tablet take 1 tablet mid day ORAL Active 07/09/2012 [facility] labetalol 200 mg tablet take 1 tablet twice daily ORAL Active 07/09/2012 [facility] Aspirin Childrens 81 mg chewable tablet take 1 daily ORAL Active 07/09/2012 [facility] multivitamin capsule take 1 ca psule by oral route every day ORAL Active 07/09/2012 [facility] Misc Drug Tumeric every day Active 07/09/2012 [facility] calcium citrate-vitamin D3 200 mg calciu m-250 unit tablet take 4 tablets ever day ORAL [facility]/09[facility]2012 [facility] amlodipine 10 mg tablet take 1 tablet (10MG) by oral route every day ORAL Active 07/09/2012 [facility] doxazosin 2 mg tablet tae 1 at bedtime ORAL Active 07/09/2012 [facility] doxazosin 8 mg tablet take 1 t ablet at bedtime ORAL Active 07/09/2012 [facility] labetalol 200 mg Tab take 1 ta blet twice daily Active 07/09/2012 [facility] Aspirin Childrens 81 mg Chewable Tab take 1 daily Active 07/09/2012 [facility] amlodipine 10 mg Tab take 1 ta blet (10MG) by oral route every day Active 07/09/2012 [facility] 12 HR Carbamazepine 400 MG Extended Release Oral Table t take 1 tablet twice daily ORAL Active 07/09/2012 [facility] labetalol 200 mg Tab take 1 ta blet twice daily ORAL Active 07/09/2012 [facility] multivitamin Cap take 1 capsul e by oral route every day ORAL Active 07/09/2012 [facility] amlodipine 10 mg Tab take 1 ta blet (10MG) by oral route every day ORAL Active 07/09/2012 [facility] doxazosin 2 mg Tab tae 1 at be dtime ORAL Active 07/09/2012 [facility] doxazosin 8 mg Tab take 1 tabl et at bedtime ORAL Active 07/09/2012 [facility] HYDROCHLOROTHIAZIDE (unknown strength) 25mg twice daily ORAL Active [facility] VITAMIN B-12 (unknown strength) take 1 daily SUBLINGUAL Active [facility] aspirin 81 mg tablet,delayed release take 1 tablet by oral route every day ORAL Active [facility] Ayla rougiulia VITAMIN B-12 (unknown strength) take 1 daily SUBLINGUAL Active [facility] HYDROCHLOROTHIAZIDE (unknown strength) 50 mg daily ORAL Active [facility] PROBIOTIC (unknown strength) ORAL Active [facility] Allergies, Adverse Reactions, Alerts Substance Category Reaction Severity Reaction type Status Date Reported Comments Source No Known Allergies propensity to adverse reacti ons to drug Active 12/29/2015 [facility] Anil portillo No Known Allergies propensity to adverse reactions to drug Active 11/07/2015 [facility] Ayla portillo Immunizations Immunization Date Given Site Status Last Updated Comments Source Unknown completed [facility] Results No Data Provided for This Section Pathology Reports No Data Provided for This Section Diagnostic Reports No Data Provided for This Section Consultation Notes Results Value Date Source Progress Note Encounter DateCo mplaintHistory Of Present Illness Convulsions (comments) Problem: 75-year-old right-handed male who was seen in follow-up. He was unaccompanied at today's visit as his is now [facility] in [place], [place]. For pertinent background please refer to the office visit of 08/12/2014. 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 He is w ell controlled on carbamazepine a supply of which [...] No treatment recommended unless he was so desire. Loss of Balance: His most significant disability. He [...] Has had some physical therapy in the past. Cryptogenic Sensory Polyneuropathy: Aware of sensory deficits but, denies significant painful component or unrecognized skin injury with neurotrophic ulcer. May play some role in balance impairment. Has also been present for several years. 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 Also demonstrated superimposed, regenerative phase left L5 radiculopathy On a sad note, his Danika has become severely demented. Following a rapid course. Forgetfulness was 1st noted by his sister about 18 months ago. Initial evaluation by a neurologist in his area. 2nd opinion obtained from Dementia Specialist Ronnie Salter M.D. of the Division of Aging at [facility]. Dr. Salter told Mr. Tran that Lewiss [...] now in a closed dementia unit, in [place], [place] Convulsions 12/29/2015 [facility] Discharge Summaries No Data Provided for This Section History and Physicals No Data Provided for This Section Vital Signs Vital Sign Value Date Comments Source Body height 69.00 [in_us] 12/29/2015 [facility] Body Weight (Measured) 175.20 [lb_av] 12/29/2015 [facility] Systolic 132 mm[ Hg] 12/29/2015 [facility] Diastolic 78 mm[ Hg] 12/29/2015 [facility] Body mass index 25.87 kg/meter (2) 12/29/2015 [facility] Body height 70.00 [in_us] 08/12/2014 [facility] Body Weight (Measured) 170.00 [lb_av] 08/12/2014 [facility] Systolic 120 mm[ Hg] 08/12/2014 [facility] Diastolic 80 mm[ Hg] 08/12/2014 [facility] Body Height (Measured) 70.0 [i n_us] 07/09/2012 [facility] Body Weight (Measured) 167.40 [lb_av] 07/09/2012 [facility] Systolic 142 mm[ Hg] 07/09/2012 [facility] Diastolic 82 mm[ Hg] 07/09/2012 [facility] Encounters Location Location Details Encounter Type Encounter Number Reason For Visit Attending Provider ADM Date DC Date Status Source [facility] [id number] Renzo Redman 12/29/2015 12/29/2015 [facility] [id number] _MAPID:[id number] Renzo garza 12/29/2015 12/29/2015 [facility] Ayla portillo [facility] [id number] Renzo Redman 11/07/2015 11/07/2015 [facility] Unknown [id number] Renzo Redman 08/18/2014 08/18/2014 [facility] [id number] Renzo Redman 08/12/2014 08/12/2014 [facility] [id number] Renzo Redman 08/12/2014 08/12/2014 [facility] [id number] Renzo Redman 01/22/2014 01/22/2014 [facility] [id number] Renzo Redman 01/22/2014 01/22/2014 [facility] [id number] Renzo Redman 04/07/2013 04/07/2013 [facility] [id number] Renzo Redman 04/07/2013 04/07/2013 [facility] [id number] Sarah Redman 10/10/2012 10/10/2012 [facility] [id number] Sarah Redman 08/28/2012 08/28/2012 [facility] [id number] Sarah Redman 08/28/2012 08/28/2012 [facility] [id number] Sarah Redman 08/28/2012 08/28/2012 [facility] [id number] Sarah Redman 08/20/2012 08/20/2012 [facility] [id number] A Feroz 08/20/2012 08/20/2012 [facility] [id number] A Feroz 08/19/2012 08/19/2012 [facility] [id number] A Feroz 08/19/2012 08/19/2012 [facility] [id number] A Feroz 08/19/2012 08/19/2012 [facility] [id number] A Feroz 08/19/2012 08/19/2012 [facility] [id number] A Feroz 08/19/2012 08/19/2012 [facility] [id number] A Feroz 08/15/2012 08/15/2012 [facility] [id number] A Feroz 08/15/2012 08/15/2012 [facility] [id number] A Feroz 08/15/2012 08/15/2012 [facility] [id number] A Feroz 08/15/2012 08/15/2012 [facility] [id number] A Feroz 08/15/2012 08/15/2012 [facility] [id number] A Feroz 08/15/2012 08/15/2012 [facility] [id number] A Feroz 08/15/2012 08/15/2012 [facility] [id number] A Feroz 08/11/2012 08/11/2012 [facility] [id number] A Feroz 08/11/2012 08/11/2012 [facility] [id number] A Feroz 08/11/2012 08/11/2012 [facility] [id number] A Feroz 07/22/2012 [facility] [address]50 [id number] A Feroz 07/15/2012 [facility] Ayla portillo [facility] [id number] A Feroz 07/15/2012 [facility] [id number] Renzo Redman 07/09/2012 07/09/2012 [facility] [id number] Renzo Redman 07/09/2012 07/09/2012 [facility] [id number] Renzo Redman 07/08/2012 07/08/2012 [facility] [id number] Renzostephanie Redman 07/08/2012 07/08/2012 [facility] [id number] E Mark 05/06/2012 [facility] [id number] Sarah Redman 03/24/2012 [facility] Procedures Procedure Code Date Perfomer Comments Source OFFICE/OUTPATIENT VISIT, EST 12/29/2015 [facility] OFFICE/OUTPATIENT VISIT, EST 9 9215 08/12/2014 [facility] OFFICE/OUTPATIENT VISIT, EST 9 9215 07/09/2012 [facility] Motor nerve conduction test 95 900 05/06/2012 [facility] Sense nerve conduction test 95 904 05/06/2012 [facility] Musc test done w/n test comp 9 5886 05/06/2012 [facility] OFFICE/OUTPATIENT VISIT, EST 9 9215 03/24/2012 [facility] Unknown [facility] Plan of Care Plan of Care Date Source DateTypeActionStatus Referral Ordered: [id number] ordered Referral Ordered: [id number] ordered Referral Ordered: [id number] ordered Referral Ordered: [id number] ordered Referral Ordered: [id number] ordered Referral Ordered: [id number] ordered Referral Ordered: [id number] ordered Referral Ordered: [id number] ordered Referral Ordered: Comp Metabolic Panel [id number] ordered Referral Ordered: CBC and Plt w Diff [id number] ordered Referral Ordered: Carbamazepine (Tegretol) Level Free [id number] ordered Future Order: Lab Order CPK Total [id number] ([id number]) Ordered Future Order: Lab Order Aldolase [id number] ([id number]) Ordered Future Order: Lab Order Myoglobin Serum QuaNT [id number] ([id number]) Ordered Future Order: Lab Order Myoglobin Ur Random QuaNT [id number] ([id number]) Ordered Future Order: Lab Order Sed Rate Automated [id number] ([id number]) Ordered Future Order: Lab Order C Reactive Protein [id number] ([id number]) Ordered Future Order: Lab Order Anti-nuclear Ab - Sendout [id number] ([id number]) Ordered Future Order: Lab Order Rheumatoid Factor [id number] ([id number]) Ordered Future Order: Lab Order CBC and Plt w Diff [id number] ([id number]) Ordered Future Order: Lab Order Comp Metabolic Panel [id number] ([id number]) Ordered Future Order: Lab Order Vitamin D 25 OH [id number] ([id number]) Ordered Future Order: Lab Order Carbamazepine (Tegretol) Level Free [id number] ([id number]) Ordered DateTypeProblemGoalInterventionStatusStart Date Unknown. 12/29/2015 [facility] Social History Social History Date Source TypeDescriptionQuantityDate Captured Alcohol Use Details No Caffeine Use Details No Tobacco Use Status Unknown Smoking Status Never smoker 12/29/2015 [facility] TypeDescriptionQuantityDate Captured Alcohol Use Details No Caffeine Use Details No Tobacco Use Status Unknown Smoking Status Unknown 12/29/2015 [facility] TypeDescriptionQuantityDate Smoking Status Never smoker packs per day 10/30/2014 [facility] TypeDescriptionQuantityDate Unknown 10/03/2014 [facility] Social History ElementDescriptionQuantit y Unknown 10/18/2012 [facility] Social History ElementDescriptionQuantit y Unknown 09/01/2012 [facility] Social History ElementDescriptionQuantit y Unknown 09/01/2012 [facility] Social History ElementDescriptionQuantit y Unknown 09/01/2012 [facility] Social History ElementDescriptionQuantit y Unknown 08/31/2012 [facility] Social History ElementDescriptionQuantit y Unknown 08/31/2012 [facility] Social History ElementDescriptionQuantit y Unknown 08/31/2012 [facility] Social History ElementDescriptionQuantit y Unknown 08/31/2012 [facility] Social History ElementDescriptionQuantit y Unknown 08/31/2012 [facility] Social History ElementDescriptionQuantit y Unknown 08/31/2012 [facility] Social History ElementDescriptionQuantit y Unknown 08/31/2012 [facility] Social History ElementDescriptionQuantit y Unknown 08/30/2012 [facility] Social History ElementDescriptionQuantit y Unknown 08/30/2012 [facility] Social History ElementDescriptionQuantit y Unknown 08/30/2012 [facility] Social History ElementDescriptionQuantit y Unknown 08/30/2012 [facility] Social History ElementDescriptionQuantit y Unknown 08/30/2012 [facility] Social History ElementDescriptionQuantit y Unknown 08/30/2012 [facility] Social History ElementDescriptionQuantit y Unknown 08/30/2012 [facility] Social History ElementDescriptionQuantit y Unknown 08/29/2012 [facility] Social History ElementDescriptionQuantit y Unknown 08/29/2012 [facility] Social History ElementDescriptionQuantit y Unknown 08/28/2012 [facility] Social History ElementDescriptionQuantit y Unknown 08/22/2012 [facility] Social History ElementDescriptionQuantit y alcohol wine 2 glasses caffeine coffee 1 cup 08/21/2012 [facility] Social History ElementDescriptionQuantit y Unknown 08/21/2012 [facility] Social History ElementDescriptionQuantit y Unknown 08/21/2012 [facility] Social History ElementDescriptionQuantit y alcohol wine 1 glass caffeine 2 cups 08/19/2012 [facility] Social History ElementDescriptionQuantit y Unknown 05/14/2012 [facility] Social History ElementDescriptionQuantit y Unknown 04/01/2012 [facility] Assessment and Plan No Data Provided for This Section Family History Value Date S ource Family MemberDiagnosisAge At Onset Father Mother Mother Cancer -lung (Cause Of ) Father Stroke (Cause Of ) 12/29/2015 [facility] Family MemberDiagnosisAge At Onset Father Mother Mother Cancer -lung (Cause Of ) Father Stroke (Cause Of ) 12/29/2015 [facility] Family MemberDiagnosisAge At OnsetStatus Father (Unknown) Mother (Unknown) Mother Cancer -lung (Cause Of ) N Father Stroke (Cause Of ) N 10/30/2014 [facility] Family MemberDiagnosisAge At OnsetStatus Father (Unknown) Mother (Unknown) Mother Cancer -lung (Cause Of ) N Father Stroke (Cause Of ) N 10/03/2014 [facility] Family MemberDiagnosisAge At OnsetStatus Mother (Unknown) Cancer -lung Yes Father (Unknown) CVA (Stroke) Yes 10/18/2012 [facility] Family MemberDiagnosisAge At OnsetStatus Mother (Unknown) Cancer -lung Yes Father (Unknown) CVA (Stroke) Yes 09/01/2012 [facility] Family MemberDiagnosisAge At OnsetStatus Mother (Unknown) Cancer -lung Yes Father (Unknown) CVA (Stroke) Yes 09/01/2012 [facility] Family MemberDiagnosisAge At OnsetStatus Mother (Unknown) Cancer -lung Yes Father (Unknown) CVA (Stroke) Yes 09/01/2012 [facility] Family MemberDiagnosisAge At OnsetStatus Mother (Unknown) Cancer -lung Yes Father (Unknown) CVA (Stroke) Yes 08/31/2012 [facility] Family MemberDiagnosisAge At OnsetStatus Mother (Unknown) Cancer -lung Yes Father (Unknown) CVA (Stroke) Yes 08/31/2012 [facility] Family MemberDiagnosisAge At OnsetStatus Mother (Unknown) Cancer -lung Yes Father (Unknown) CVA (Stroke) Yes 08/31/2012 [facility] Family MemberDiagnosisAge At OnsetStatus Mother (Unknown) Cancer -lung Yes Father (Unknown) CVA (Stroke) Yes 08/31/2012 [facility] Family MemberDiagnosisAge At OnsetStatus Mother (Unknown) Cancer -lung Yes Father (Unknown) CVA (Stroke) Yes 08/31/2012 [facility] Family MemberDiagnosisAge At OnsetStatus Mother (Unknown) Cancer -lung Yes Father (Unknown) CVA (Stroke) Yes 08/31/2012 [facility] Family MemberDiagnosisAge At OnsetStatus Mother (Unknown) Cancer -lung Yes Father (Unknown) CVA (Stroke) Yes 08/31/2012 [facility] Family MemberDiagnosisAge At OnsetStatus Mother (Unknown) Cancer -lung Yes Father (Unknown) CVA (Stroke) Yes 08/30/2012 [facility] Family MemberDiagnosisAge At OnsetStatus Mother (Unknown) Cancer -lung Yes Father (Unknown) CVA (Stroke) Yes 08/30/2012 [facility] Family MemberDiagnosisAge At OnsetStatus Mother (Unknown) Cancer -lung Yes Father (Unknown) CVA (Stroke) Yes 08/30/2012 [facility] Family MemberDiagnosisAge At OnsetStatus Mother (Unknown) Cancer -lung Yes Father (Unknown) CVA (Stroke) Yes 08/30/2012 [facility] Family MemberDiagnosisAge At OnsetStatus Mother (Unknown) Cancer -lung Yes Father (Unknown) CVA (Stroke) Yes 08/30/2012 [facility] Family MemberDiagnosisAge At OnsetStatus Mother (Unknown) Cancer -lung Yes Father (Unknown) CVA (Stroke) Yes 08/30/2012 [facility] Family MemberDiagnosisAge At OnsetStatus Mother (Unknown) Cancer -lung Yes Father (Unknown) CVA (Stroke) Yes 08/30/2012 [facility] Family MemberDiagnosisAge At OnsetStatus Mother (Unknown) Cancer -lung Yes Father (Unknown) CVA (Stroke) Yes 08/29/2012 [facility] Family MemberDiagnosisAge At OnsetStatus Mother (Unknown) Cancer -lung Yes Father (Unknown) CVA (Stroke) Yes 08/29/2012 [facility] Family MemberDiagnosisAge At OnsetStatus Mother (Unknown) Cancer -lung Yes Father (Unknown) CVA (Stroke) Yes 08/28/2012 [facility] Family MemberDiagnosisAge At OnsetStatus Mother (Unknown) Cancer -lung Yes Father (Unknown) CVA (Stroke) Yes 08/22/2012 [facility] Family MemberDiagnosisAge At OnsetStatus Mother (Unknown) Cancer -lung Yes Father (Unknown) CVA (Stroke) Yes 08/21/2012 [facility] Family MemberDiagnosisAge At OnsetStatus Mother (Unknown) Cancer -lung Yes Father (Unknown) CVA (Stroke) Yes 08/21/2012 [facility] Family MemberDiagnosisAge At OnsetStatus Mother (Unknown) Cancer -lung Yes Father (Unknown) CVA (Stroke) Yes 08/21/2012 [facility] Family MemberDiagnosisAge At OnsetStatus Mother (Unknown) Cancer -lung Yes Father (Unknown) CVA (Stroke) Yes 08/19/2012 [facility] Family MemberDiagnosisAge At OnsetStatus Unknown 05/14/2012 [facility] Family MemberDiagnosisAge At OnsetStatus Unknown 04/01/2012 [facility] Advance Directives Order Name Results Value Date Source Advance Directives Advance Dir ectives DirectiveYes / NoEffective DateFile Name Unknown 12/29/2015 [facility] Advance Directives Advance Dir ectives DirectiveYes / NoEffective DateFile Name Unknown WARNING:The information contained in this section is historical and is provided for information only and does not constitute a legal document or any assurance that the information is still accurate. Please verify the information with the dawn of the legal document before using it for clinical purposes. 10/30/2014 [facility] Advance Directives Advance Dir ectives DirectiveYes / NoEffective DateFile Name Unknown WARNING:The information contained in this section is historical and is provided for information only and does not constitute a legal document or any assurance that the information is still accurate. Please verify the information with the dawn of the legal document before using it for clinical purposes. 10/03/2014 [facility] Advance Directives Advance Dir ectives DirectiveEffective Date Unknown 10/18/2012 [facility] Advance Directives Advance Dir ectives DirectiveEffective Date Unknown 09/01/2012 [facility] Advance Directives Advance Dir ectives DirectiveEffective Date Unknown 09/01/2012 [facility] Advance Directives Advance Dir ectives DirectiveEffective Date Unknown 09/01/2012 [facility] Advance Directives Advance Dir ectives DirectiveEffective Date Unknown 08/31/2012 [facility] Advance Directives Advance Dir ectives DirectiveEffective Date Unknown 08/31/2012 [facility] Advance Directives Advance Dir ectives DirectiveEffective Date Unknown 08/31/2012 [facility] Advance Directives Advance Dir ectives DirectiveEffective Date Unknown 08/31/2012 [facility] Advance Directives Advance Dir ectives DirectiveEffective Date Unknown 08/31/2012 [facility] Advance Directives Advance Dir ectives DirectiveEffective Date Unknown 08/31/2012 [facility] Advance Directives Advance Dir ectives DirectiveEffective Date Unknown 08/31/2012 [facility] Advance Directives Advance Dir ectives DirectiveEffective Date Unknown 08/30/2012 [facility] Advance Directives Advance Dir ectives DirectiveEffective Date Unknown 08/30/2012 [facility] Advance Directives Advance Dir ectives DirectiveEffective Date Unknown 08/30/2012 [facility] Advance Directives Advance Dir ectives DirectiveEffective Date Unknown 08/30/2012 [facility] Advance Directives Advance Dir ectives DirectiveEffective Date Unknown 08/30/2012 [facility] Advance Directives Advance Dir ectives DirectiveEffective Date Unknown 08/30/2012 [facility] Advance Directives Advance Dir ectives DirectiveEffective Date Unknown 08/30/2012 [facility] Advance Directives Advance Dir ectives DirectiveEffective Date Unknown 08/29/2012 [facility] Advance Directives Advance Dir ectives DirectiveEffective Date Unknown 08/29/2012 [facility] Advance Directives Advance Dir ectives DirectiveEffective Date Unknown 08/28/2012 [facility] Advance Directives Advance Dir ectives DirectiveEffective Date Unknown 08/22/2012 [facility] Advance Directives Advance Dir ectives DirectiveEffective Date Unknown 08/21/2012 [facility] Advance Directives Advance Dir ectives DirectiveEffective Date Unknown 08/21/2012 [facility] Advance Directives Advance Dir ectives DirectiveEffective Date Unknown 08/21/2012 [facility] Advance Directives Advance Dir ectives DirectiveEffective Date Unknown 08/19/2012 [facility] Advance Directives Advance Dir ectives DirectiveEffective Date Unknown 05/14/2012 [facility] Advance Directives Advance Dir ectives DirectiveEffective Date Unknown 04/01/2012 [facility] Functional Status No Data Provided for This Section
--- OUTSIDE RECORDS SUMMARY | 2019-11-19 11:55 | XMS REPORT | Continuity of Care Document ---
Author Author BERNARDA Buchanan [facility] Address [address] [address] Phone Care Team Providers Care Job Printer Apprentice Name Role Phone Toni HAWTHORNE, Alfredo WILBURN Unavailable Toni HAWTHORNE, Alfredo RP Unavailable Payers Payer name Insurance type Covered constitution party ID Authorization(s ) Part B WPS MB [id number] Supp Generic [id number] Problems Condition Effective Dates (start - stop) [...] Unknown Encounters Encounter Location Date Patient Visit [facility] No Patient Visit [facility] [place] Patient Visit [facility] Advance Directives Directive Effective Date Unknown
--- OUTSIDE RECORDS SUMMARY | 2019-11-19 11:55 | XMS REPORT | Continuity of Care Document ---
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 Role Phone Alfredo Muñoz PP Unavailable Feroz HAWTHORNE, Renzo WILBURN Unavailable Alfredo Muñoz RP Unavailable Payers Payer name Insurance type Covered green party ID Authorization(s ) Part B WPS [facility] [id number] Supp Generic [facility] [id number] Problems Condition Effective Dates (start - stop) Clinical Status Partial epilepsy, 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Essential tremor Loss of balance Peripheral neuropathy, idiopathic Partial epilepsy, 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 Other symptoms involving nervous and musculoskeletal systems Neuropathy, peripheral NOS Partial epilepsy, 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Tremor Loss of balance 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, not intractable, without status epilepticus Essential tremor Loss of balance Cryptogenic sensory polyneuropathy Partial epilepsy, 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 Other symptoms involving nervous and musculoskeletal systems Neuropathy, peripheral NOS Partial epilepsy, 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 Family History Family Member Diagnosis Age At Onset Father Mother Mother Cancer -lung (Cause Of ) Father Stroke (Cause Of ) Social History Type Description Quantity Date Captured Alcohol Use Details No Caffeine Use Details No Tobacco Use Status Unknown Smoking Status Unknown Allergies, Adverse Reactions, Alerts Substance Reaction [...] - Active PROBIOTIC (unknown strength) - Active aspirin 81 mg tablet,delayed release take 1 tablet by oral r oute every day 81 MG - Active Immunizations Vaccine Date Status Comments Unknown Results Test Name Date and Time Measure Units Reference Range Abnormal F lag Comments Unknown Vital Signs Date / Time: Height Weight BMI Pulse Rate Blood Pressure Temperatu re Respiratory Rate Body Surface Area Head Circumference BMI percentile Unknown Procedures Procedure Date Unknown Encounters Encounter Description Practice Location Reason(s) For Visit Diagnose s Date Provider [facility] Ayla portillo, [address] [place] [address], [address] [place] [address] [facility] [place] symptomatic epilepsy with complex partial seizures, not intractable, without status epilepticusEssential tremorLoss of balanceCryptogenic sensory polyneuropathy Feroz Muller. [address] [place] [address], [facility], [place]. tel:[phone] [facility] Ayla portillo, [id number] [place] [address], [id number], [facility] [place] Feroz Muller. [address], [facility], [place]. tel:[phone] [facility] Ayla portillo, [id number] [place] [address], [facility], [facility] [place] epilepsy, without mention of intractable epilepsyTremorLoss of balanceSensory peripheral neuropathy Feroz Muller. [address], [facility], [place]. tel:[phone] [facility] Ayla portillo, [address] [place], [address], [facility] [place] epilepsy, without mention of intractable epilepsyHereditary TremorOther symptoms involving nervous and musculoskeletal systemsNeuropathy, peripheral NOS Feroz Muller. [address], [facility], [place]. tel:[phone] [facility] Ayla portillo, [id number] [place] [address], [id number], [facility] [place] rt[place] epilepsy, without mention of intractable epilepsyHereditary TremorOther symptoms involving nervous and musculoskeletal systemsNeuropathy, peripheral NOS Feroz Muller. [address], [facility], [place]. tel:[phone] [facility] Ayla portillo, [address] [place] [address], [id number], [facility] [place] epilepsy, without mention of intractable epilepsyEssential tremorLoss of balancePeripheral neuropathy, idiopathic Feroz Muller. [address], [facility], [place]. tel:[phone] [facility] Ayla portillo, [address] [place] [address], [id number], [facility] [place] epilepsy, without mention of intractable epilepsyHereditary Tremor Feroz Muller. [address], [facility], [place]. tel:[phone] Advance Directives Directive Yes / No Effective Date File Name Unknown
== END 2019-10-25 20:44 | disposition home or self-care (01) ==
LOC: EDUNIT# 19:10 → ER FS 19:14
DX: A09 Infectious gastroenteritis and colitis, unspecified (principal); I10 Essential (primary) hypertension; G40.909 Epilepsy, unspecified, not intractable, without status epilepticus; Z90.49 Acquired absence of other specified parts of digestive tract
CPT/HCPCS: 36415; 80053; 81000; 83690; 83880; 85007; 85027; 96361; 96374; 99283

== ENCOUNTER 2020-04-07 10:29 | Emergency (ER) | payer MEDICARE, OTHER ==
[~2020-04-07] VITALS: Ht 175.2 cm; Wt 86.1 kg
[~2020-04-07 10:29] MED LIST changes: -METO-370 PO; +METO50TA7 PO
[2020-04-07] MEDS ORDERED: LIDOCAINE 1% INJ 20 ML 20 ML VIAL ONE (10:33)
[2020-04-07 10:35] VITALS: BP 187/81
--- NOTE | 2020-04-07 10:42 | ED Fall/Injury ---
General Stated Complaint: LT HAND INJ Source: patient, RN/, RN notes reviewed Exam Limitations: no limitations History of Present Illness Date Seen by Provider: April 07, 2020 Time Seen by Provider: 10:30 Initial Comments This patient is an 79-year-old male that presents to the emergency department complaining of left fifth finger pain. At the MIP joint. Patient states that he uses a walker, stumbled and fell onto the walker causing some discomfort in the MIP joint and difficulty moving the finger. On exam appears patient has a dislocation. We will x-ray the finger and evaluate. Further as needed. Occurred: just prior to arrival Injuries/Pain Location: upper extremity (finger) Modifying Factors: Worse With Cold Therapy, Worse With Immobilization, Worse With Jarring, Worse With Movement, Worse With Pain Medication, Worse With Rest, Worse With Other Associated Symptoms (Fall): No Denies Symptoms, No Abdominal Pain, No Chest Pain, No Confusion, No Dizziness, No Headache, No Lightheadedness, No Muscle Spasms, No Nausea/Vomiting, No Neck Pain, No Ringing in Ears, No Seizures, No Shortness of Air, No Slurred Speech, No Trouble Walking, No Vision Changes, No Other Allergies and Home Medications Allergies Coded Allergies: No Known Drug Allergies (Unverified , 02/15/19) Home Medications Carbamazepine 400 Mg Tab.er.12h, 400 MG PO BID, (Reported) Carbamazepine 100 Mg Tab.chew, 100 MG PO 1200, (Reported) Cyanocobalamin (Vitamin B-12) 1,000 Mcg Tablet, 1,000 MCG PO 1200, (Reported) Doxazosin Mesylate 8 Mg Tablet, 8 MG PO HS, (Reported) TAKES ALONG WITH 2MG TABLET FOR A TOTAL DOSE OF 10MG Doxazosin Mesylate 2 Mg Tablet, 2 MG PO HS, (Reported) TAKES ALONG WITH 8MG TABLET FOR A TOTAL DOSE OF 10MG L.acidoph & Paracasei,B.lactis 1 Each Capsule, 1 CAP PO DAILY, (Reported) Multivitamin 1 Each Tablet, 1 TAB PO DAILY, (Reported) Ondansetron 4 Mg Tab.rapdis, 4 MG PO Q6H PRN for NAUSEA/VOMITING Prescribed by: TITO CASTELLANOS on 10/25/192002 Polyethylene Glycol 3350 17 Gm Powd.pack, 17 GM PO BID PRN Prescribed by: TITO CASTELLANOS on 03/16/192031 Patient Home Medication List Home Medication List Reviewed: Yes Review of Systems Review of Systems Constitutional: No no symptoms reported; see HPI; No chills, No diaphoresis, No dizziness, No fever, No malaise, No weakness, No weight gain, No weight loss, No other Eyes: Denies No Symptoms Reported, Denies See HPI, Denies Blindness, Denies Blurred Vision, Denies Drainage, Denies Decreased Acuity, Denies Foreign Body Sensation, Denies Inflammation, Denies Pain, Denies Photophobia, Denies Previous Injury, Denies Shadows, Denies Tunnel Vision, Denies Vision Changes, Denies Contact Lenses, Denies Glasses, Denies Other Ears, Nose, Mouth, Throat: denies no symptoms reported, denies see HPI, denies ear pain, denies ear discharge, denies nose pain, denies nose discharge, denies epistaxis, denies mouth pain, denies mouth swelling, denies loose teeth, denies throat pain, denies throat swelling Respiratory: No no symptoms reported, No see HPI, No cough, No dyspnea on exertion, No hemoptysis, No orthopnea, No phlegm, No short of breath, No stridor, No wheezing, No other Cardiovascular: No no symptoms reported, No see HPI, No chest pain, No edema, No Hx of Intervention, No palpitations, No syncope, No vascular heart diseas, No other Gastrointestinal: No RUQ, No LUQ, No RLQ, No LLQ, No no symptoms reported, No see HPI, No abdominal pain, No constipation, No diarrhea, No dysphagia, No hematemesis, No heartburn, No jaundice, No loss of appetite, No melena, No nausea, No vomiting, No other Musculoskeletal: No no symptoms reported; see HPI; No back pain, No gout; joint pain; No joint swelling, No muscle pain, No muscle stiffness, No muscle cramps, No muscle twitching, No muscle weakness, No neck pain, No other Skin: No no symptoms reported, No see HPI, No change in color, No change in hair/nails, No dryness, No hx of skin cancer, No lesions, No lumps, No pruritus, No rash, No other All Other Systems Reviewed Negative Unless Noted: Yes Past Ijfnsxd-Orkzaz-Ixbtsb Hx Patient Social History Alcohol Beverage of Choice: Wine 2nd Hand Smoke Exposure: No Recent Foreign Travel: No Contact w/Someone Who Travel: No Recent Hopitalizations: No Immunizations Up To Date Date of Influenza Vaccine: Dec 20, 2018 Seasonal Allergies Seasonal Allergies: No Past Medical History Surgeries: Yes Appendectomy, Gallbladder Respiratory: No Cardiac: Yes Hypertension Neurological: Yes Seizure Disorder Genitourinary: No Gastrointestinal: No Musculoskeletal: No Endocrine: No HEENT: No Cancer: No Psychosocial: No Integumentary: No Blood Disorders: No Family Medical History No Pertinent Family Hx Physical Exam Vital Signs Capillary Refill : Height, Weight, BMI Height: 5'8.00" Weight: 180lbs. 0oz. 81.713414st; 27.00 BMI Method:Stated General Appearance: WD/WN, no apparent distress HEENT: PERRL/EOMI, normal ENT inspection, TMs normal, pharynx normal Neck: non-tender, full range of motion, supple, normal inspection Cardiovascular: normal peripheral pulses, regular rate, rhythm, no edema, no gallop, no JVD, no murmur Respiratory: chest non-tender, lungs clear, normal breath sounds, no respiratory distress, no accessory muscle use Gastrointestinal: normal bowel sounds, non tender, soft, no organomegaly, no pulsatile mass Extremities: other (tenderness to the MIP joint of the left fifth digit some mild deformity consistent with possible dislocation.) Skin: normal color, warm/dry Procedures/Interventions Splinting and Joint Reduction : Pre-Proc Neuro Vasc Exam: normal Post-Proc Neuro Vasc Exam: normal Progress Using manual traction was easily able to reduce joint dislocation. The MIP joint to left fifth digit. Range of motion restored. Patient placed in aluminum finger splint. Did do a digital block prior to procedure to help with anesthetization Pre-Procedure NV Exam: Yes post joint reduction film: no fracture seen Splint Application: Finger Progress/Results/Core Measures Results/Orders My Orders Orders - DVE MELENDEZ MD Finger(S) (04/07/20 10:38) Lidocaine 1% Inj 20 Ml (Xylocaine 1% Inj (04/07/20 10:45) Lidocaine 1% Inj 20 Ml (Xylocaine 1% Inj (04/07/20 10:33) Medications Given in ED Current Medications Medications Dose Ordered Sig/[place] Route Start Time Stop Time Status Last Admin Dose Admin Lidocaine HCl 20 ml ONCE ONCE INJ 5/14/20 10:45 04/07/20 10:46 DC 04/07/20 10:45 20 ML Progress Progress Note : Time: 11:02 Progress Note Using manual traction was easily able to reduce joint dislocation. The MIP joint to left fifth digit. Range of motion restored. Patient placed in aluminum finger splint. Did do a digital block prior to procedure to help with anesthetization. Aluminum finger splint will be in place for at least 7 days. Follow-up with PCP in 2-3 days. Continue rest ice elevation compression. Tylenol Motrin as needed for pain. Departure Impression Primary Impression: Dislocation, finger closed Disposition: HOME, SELF-CARE Condition: Stable Departure-Patient Inst. Decision time for Depature: 11:03 Referrals: ANGELA MARTINEZ MD (PCP/Family) Primary Care Physician Patient Instructions: Finger Dislocation (DC) Add. Discharge Instructions: Aluminum finger splint will be in place for at least 7 days. Follow-up with PCP in 2-3 days. Continue rest ice elevation compression. Tylenol Motrin as needed for pain. DEV MELENDEZ MD April 07, 2020 10:42
[2020-04-07] MEDS ORDERED: LIDOCAINE 1% INJ 20 ML 20 ML VIAL INJ ONE (10:45)
--- NOTE | 2020-04-07 11:08 | Diagnostic Imaging Report ---
INDICATION: Left 5th finger injury, fall. TIME OF EXAM 10:57 AM 3 views of the left 5th finger were obtained. There is a dislocation at the PIP joint of the 5th finger. The middle phalanx is dislocated dorsally in relation to the proximal phalanx. No definite fracture is seen. Visualized metacarpals are intact. IMPRESSION: 5th finger PIP joint dislocation, as described. Dictated by: Dictated on workstation # [id number]
== END 2020-04-07 11:20 | disposition home or self-care (01) ==
LOC: EDUNIT# 10:29 → ER FS 10:31
DX: S63.267A Dislocation of metacarpophalangeal joint of left little finger, initial encounter (principal); I10 Essential (primary) hypertension; G40.909 Epilepsy, unspecified, not intractable, without status epilepticus; W01.0XXA Fall on same level from slipping, tripping and stumbling without subsequent striking against object, initial encounter
CPT/HCPCS: 64450; 73140

== ENCOUNTER 2022-07-26 11:01 | Emergency (ER) | payer MEDICARE, OTHER ==
[~2022-07-26 11:01] MED LIST changes: -HYDR50TA3 PO; +HYDR50TA6 PO; +LABE200T10 PO; -LABE200T7 PO
[2022-07-26] MEDS ORDERED: hydrALAZINE (APESOLINE) 20 MG/ML VIAL IV STA (11:11)
[2022-07-26 11:17] LABS: BASOPHILS # (AUTO) 0.1 10^3/uL (0.0-0.1); BASOPHILS % (AUTO) 1 % (0-10); EOSINOPHILS # (AUTO) 0.3 10^3/uL (0.0-0.3); EOSINOPHILS % (AUTO) 5 % (0-10); HEMATOCRIT 35 % (40-54); HEMOGLOBIN 12.2 g/dL (13.3-17.7); LYMPHOCYTES # (AUTO) 0.9 10^3/uL (1.0-4.0); LYMPHOCYTES % (AUTO) 15 % (12-44); MEAN CORPUSCULAR HEMOGLOBIN 31 pg (25-34); MEAN CORPUSCULAR HGB CONC 35 g/dL (32-36); MEAN CORPUSCULAR VOLUME 91 fL (80-99); MEAN PLATELET VOLUME 10.1 fL (9.0-12.2); MONOCYTES # (AUTO) 0.7 10^3/uL (0.0-1.0); MONOCYTES % (AUTO) 11 % (0-12); NEUTROPHILS # (AUTO) 4.2 10^3/uL (1.8-7.8); NEUTROPHILS % (AUTO) 68 % (42-75); PLATELET COUNT 288 10^3/uL (130-400); WHITE BLOOD COUNT 6.1 10^3/uL (4.3-11.0)
--- NOTE | 2022-07-26 11:17 | ED General ---
General Stated Complaint: SYNCOPE Source of Information: Patient, EMS History of Present Illness Date Seen by Provider: Jul 26, 2022 Time Seen by Provider: 11:01 Initial Comments 82-year-old male presenting by EMS with complaints of having a near syncopal episode for 2 to 3 seconds. He was visiting someone at [facility] and denies having any symptoms prior to this event but had 2 to 3 seconds where he was leaning to the left and was not responding to anyone. He denies having headache, chest pain, nausea, vomiting, abdominal pain, pain with urination, changes with stools, cough. He states he has chronic bad vision with everything being blurry and that he is slowly losing his vision. He states that the seems to be at baseline today. He chronically runs high on his blood pressure and reports that usually it is around 160 or better for the top number. Severity: Mild Associated Systoms: No Chest Pain, No Cough, No Diaphoresis, No Fever/Chills, No Headaches, No Loss of Appetite, No Malaise, No Nausea/Vomiting, No Rash, No Seizure, No Shortness of Air, No Syncope, No Weakness Allergies and Home Medications Allergies Coded Allergies: No Known Drug Allergies (Unverified , 02/15/19) Patient Home Medication List Home Medication List Reviewed: Yes Carbamazepine (Tegretol Xr) 400 Mg Tab.er.12h, 400 MG PO BID, (Reported) Entered as Reported by: KARTHIK MANCILLA on 02/18/19934 Carbamazepine (Carbamazepine) 100 Mg Tab.chew, 100 MG PO 1200, (Reported) Entered as Reported by: KARTHIK MANCILLA on 02/18/19934 Cyanocobalamin (Vitamin B-12) (Vitamin B-12) 1,000 Mcg Tablet, 1,000 MCG PO 1200, (Reported) Entered as Reported by: KARTHIK MANCILLA on 02/18/19934 Doxazosin Mesylate (Doxazosin Mesylate) 8 Mg Tablet, 8 MG PO HS, (Reported) Entered as Reported by: KARTHIK MANCILLA on 02/18/19934 Doxazosin Mesylate (Doxazosin Mesylate) 2 Mg Tablet, 2 MG PO HS, (Reported) Entered as Reported by: KARTHIK MANCILLA on 02/18/19934 L.acidoph & Paracasei,B.lactis (Probiotic) 1 Each Capsule, 1 CAP PO DAILY, (Reported) Entered as Reported by: KARTHIK MANCILLA on 02/18/19934 Multivitamin (Multi-Vitamin Daily) 1 Each Tablet, 1 TAB PO DAILY, (Reported) Entered as Reported by: KARTHIK MANCILLA on 02/18/19934 Ondansetron (Ondansetron Odt) 4 Mg Tab.rapdis, 4 MG PO Q6H PRN for NAUSEA/VOMITI NG Prescribed by: TITO CASTELLANOS on 10/25/192002 Polyethylene Glycol 3350 (Miralax) 17 Gm Powd.pack, 17 GM PO BID PRN Prescribed by: TITO CASTELLANOS on 03/16/192031 Review of Systems Review of Systems Constitutional: No chills, No diaphoresis, No dizziness, No fever, No malaise EENTM: blurred vision (chronic and at baseline); No ear discharge, No hearing loss, No ear pain, No eye pain, No hoarseness, No epistaxis, No nose congestion, No nose pain, No throat pain Respiratory: No cough, No short of breath Cardiovascular: No chest pain Gastrointestinal: No abdominal pain, No nausea, No vomiting Genitourinary: No dysuria Musculoskeletal: no symptoms reported Skin: No rash Psychiatric/Neurological: Denies Headache, Denies Numbness, Denies Paresthesia Hematologic/Lymphatic: Denies Blood Clots Past [id number]-Vpngae-Pljasq Hx Patient Social History Tobacco Use?: No Use of E-Cig and/or Vaping dev: No Substance use?: No Alcohol Use?: Yes Alcohol type: Wine Alcohol Frequency: Daily Seasonal Allergies Seasonal Allergies: No Past Medical History Surgery/Hospitalization HX: Hypertension, Seizures, Cholecystectomy, Appendectomy Surgeries: Yes Appendectomy, Gallbladder Respiratory: No Cardiac: Yes Hypertension Neurological: Yes Seizure Disorder Genitourinary: No Gastrointestinal: No Musculoskeletal: No Endocrine: No HEENT: No Cancer: No Psychosocial: No Integumentary: No Blood Disorders: No Family Medical History No Pertinent Family Hx Physical Exam Vital Signs Vital Signs - First Documented 07/26/22 11:01 Temp 36.4 Pulse 55 Resp 20 B/P (MAP) 205/83 (123) Pulse Ox 96 O2 Delivery Room Air Capillary Refill : Height, Weight, BMI Height: 5'8.00" Weight: 180lbs. 0oz. [id number]; 28.00 BMI Method:Stated General Appearance: No Apparent Distress, WD/WN HEENT: PERRL/EOMI, Normal ENT Inspection, Pharynx Normal Neck: Full Range of Motion, Normal Inspection, Non Tender, Supple Respiratory: Chest Non Tender, Lungs Clear, Normal Breath Sounds, No Accessory Muscle Use, No Respiratory Distress Cardiovascular: Regular Rate, Rhythm, Normal Peripheral Pulses Gastrointestinal: Normal Bowel Sounds, No Pulsatile Mass, Non Tender, Soft Rectal: Deferred Extremity: Normal Capillary Refill, Normal Inspection, Normal Range of Motion, Non Tender, No Calf Tenderness, No Pedal Edema Neurologic/Psychiatric: Alert, Oriented x3, No Motor/Sensory Deficits, Normal 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, 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 Norm as Tested Skin: Normal Color, Warm/Dry Progress/Results/Core Measures Suspected Sepsis SIRS Temperature: Pulse: Respiratory Rate: Laboratory Tests 07/26/22 11:03: White Blood Count 6.1 Blood Pressure / Mean: Laboratory Tests 07/26/22 11:03: Creatinine 1.66H, INR Comment 1.0, Platelet Count 288, Total Bilirubin 0.2 Results/Orders Lab Results Laboratory Tests Test 07/26/22 11:03 07/26/22 11:31 Range/Units White Blood Count 6.1 4.3-11.0 10^3/uL Red Blood Count 3.88 L 4.30-5.52 10^6/uL Hemoglobin 12.2 L 13.3-17.7 g/dL Hematocrit 35 L 40-54 % Mean Corpuscular Volume 91 80-99 fL Mean Corpuscular Hemoglobin 31 25-34 pg Mean Corpuscular Hemoglobin Concent 35 32-36 g/dL Red Cell Distribution Width 13.1 10.0-14.5 % Platelet Count 288 130-400 10^3/uL Mean Platelet Volume 10.1 9.0-12.2 fL Immature Granulocyte % (Auto) 0 % Neutrophils (%) (Auto) 68 42-75 % Lymphocytes (%) (Auto) 15 12-44 % Monocytes (%) (Auto) 11 0-12 % Eosinophils (%) (Auto) 5 0-10 % Basophils (%) (Auto) 1 0-10 % Neutrophils # (Auto) 4.2 1.8-7.8 10^3/uL Lymphocytes # (Auto) 0.9 L 1.0-4.0 10^3/uL Monocytes # (Auto) 0.7 0.0-1.0 10^3/uL Eosinophils # (Auto) 0.3 0.0-0.3 10^3/uL Basophils # (Auto) 0.1 0.0-0.1 10^3/uL Immature Granulocyte # (Auto) 0.0 0.0-0.1 10^3/uL Prothrombin Time 13.1 12.2-14.7 SEC INR Comment 1.0 0.8-1.4 Activated Partial Thromboplast Time 28 24-35 SEC Sodium Level 141 135-145 MMOL/L Potassium Level 3.7 3.6-5.0 MMOL/L Chloride Level 101 98-107 MMOL/L Carbon Dioxide Level 29 21-32 MMOL/L Anion Gap 11 5-14 MMOL/L Blood Urea Nitrogen 41 H 7-18 MG/DL Creatinine 1.66 H 0.60-1.30 MG/DL Estimat Glomerular Filtration Rate 40 BUN/Creatinine Ratio 25 Glucose Level 111 H 70-105 MG/DL Calcium Level 9.1 8.5-10.1 MG/DL Corrected Calcium 9.0 8.5-10.1 MG/DL Magnesium Level 2.2 1.6-2.4 MG/DL Total Bilirubin 0.2 0.1-1.0 MG/DL Aspartate Amino Transf (AST/SGOT) 20 5-34 U/L Alanine Aminotransferase (ALT/SGPT) 19 0-55 U/L Alkaline Phosphatase 80 40-136 U/L Troponin I < 0.30 <0.30 NG/ML Pro-B-Type Natriuretic Peptide 1256.0 H <450.0 PG/ML Total Protein 7.1 6.4-8.2 GM/DL Albumin 4.1 3.2-4.5 GM/DL Lipase 45 8-78 U/L Urine Color YELLOW Urine Clarity CLEAR Urine pH 6.5 5-9 Urine Specific [place] 1.015 L 1.016-1.022 Urine Protein TRACE H NEGATIVE Urine Glucose (UA) NEGATIVE NEGATIVE Urine Ketones NEGATIVE NEGATIVE Urine Nitrite NEGATIVE NEGATIVE Urine Bilirubin NEGATIVE NEGATIVE Urine Urobilinogen 0.2 < = 1.0 MG/DL Urine Leukocyte Esterase NEGATIVE NEGATIVE Urine RBC (Auto) NEGATIVE NEGATIVE Urine RBC NONE /HPF Urine WBC 0-2 /HPF Urine Squamous Epithelial Cells 0-2 /HPF Urine Crystals NONE /LPF Urine Bacteria NEGATIVE /HPF Urine Casts PRESENT /LPF Urine Hyaline Casts 2-5 H /LPF Urine Mucus NEGATIVE /LPF Urine Culture Indicated NO My Orders Orders - ASLINA LEIGH MD Cbc With Automated Diff (07/26/22 11:10) Magnesium (07/26/22 11:10) Chest 1 View Ap/Pa Only (07/26/22 11:10) Ekg Tracing (07/26/22 11:10) Comprehensive Metabolic Panel (07/26/22 11:10) Protime With Inr (07/26/22 11:10) Partial Thromboplastin Time (07/26/22 11:10) O2 (07/26/22 11:10) Monitor-Rhythm Ecg Trace Only (07/26/22 11:10) Ed Iv/Invasive Line Start (07/26/22 11:10) Lipase (07/26/22 11:10) Troponin I Fs (07/26/22 11:10) Probnp Fs (07/26/22 11:10) Ua Culture If Indicated (07/26/22 11:11) Ct Head Wo (07/26/22 11:11) Hydralazine Injection (Apresoline Inject (07/26/22 11:11) Vital Signs/I&O 07/26/22 07/26/22 11:01 12:06 Temp 36.4 36.4 Pulse 55 56 Resp 20 20 B/P (MAP) 205/83 (123) 165/65 Pulse Ox 96 96 O2 Delivery Room Air Room Air Capillary Refill : Progress Note #1: Progress Note Check labs and ECG and UA. CT scan of head to evaluate for intracranial hemorrhage, mass, stroke. Chest x-ray to evaluate for pneumonia, cardiomegaly, pleural effusion, heart failure, lung mass. Give hydralazine 10 mg IV to try and help with his hypertension. Progress Note #2: Progress Note Electrocardiogram appears stable from prior tracings other than now he has a 1st degree AV block. CBC and chemistry appear stable without acute significant normality. Troponin is less than 0.3. He has some chronic renal insufficiency that appears stable with a creatinine at 1.6. He does have mild elevation of his BUN to 41. Coags were normal and urinalysis did not show signs of infection. Chest x-ray shows some cardiomegaly but no acute failure. CT scan of the head shows no acute process but he does have some chronic small vessel disease. There is also some mild paranasal sinus disease. His blood pressure is doing better after the hydralazine. We will reassure patient and encouraged him to drink more fluids. Since his BUN was slightly elevated he may be slightly dry compared to usual. Follow-up through his regular provider for continued concerns. This could also be related to his history of seizures. ECG Initial ECG Impression Date: Jul 26, 2022 Initial ECG Impression Time: 11:11 Initial ECG Rate: 53 Initial ECG Rhythm: S.Jd Initial ECG Comparisson: Changed (Compared to 2019 he now has 1st degree AV block) Comment Sinus bradycardia with a heart rate of 53 bpm. There is a first-degree AV block with SD interval 221 ms. He has no acute ST elevation. There is a left axis deviation. QT interval 451 ms with a QTc interval 434 ms. Overall appears similar to prior tracing from 2019 other than now he has the first-degree AV block. Diagnostic Imaging Diagonstic Imaging: Xray Plain Films/CT/US/NM/MRI: chest [facility] [place] [place] NAME: BERNARDA MUNOZ [employer] REC#: [id number] PT STATUS: REG ER : 1940 PHYSICIAN: SALINA LEIGH MD ADMIT DATE: 07/26/22/ER FS Draft Date of Exam:07/26/22 CHEST 1 VIEW AP/PA ONLY INDICATION: Generalized weakness and hypertension. Heart size at the upper limits of normal. Pulmonary vascularity is unremarkable. No pneumothorax or consolidation. There may be slight left basilar atelectasis or scarring. IMPRESSION: Borderline cardiomegaly without other evidence of acute abnormality. Dictated on workstation # [id number] Dict: 07/26/22 1147 Trans: 07/26/22 1153 CV [id number] Interpreted by: LEAH DAVILA MD Electronically signed by: Reviewed: Reviewed by Me Diagonstic Imaging: CT Plain Films/CT/US/NM/MRI: head Comments [facility] [place] [place] [facility] [employer] REC#: [id number] PT STATUS: REG ER : 1940 PHYSICIAN: SALINA LEIGH MD ADMIT DATE: 07/26/22/ER FS Draft Date of Exam:07/26/22 CT HEAD WO CLINICAL INDICATIONS: Patient with onset of generalized weakness and hypertension. EXAM: Axial CT scan of the brain performed without IV contrast. Auto Exposure Controls were utilized during the CT exam to meet ALARA standards for radiation dose reduction. COMPARISON: CT scan of the head and cervical spine without contrast dated 02/17/2019. FINDINGS: There is no evidence of acute cerebral infarct, intracranial hemorrhage, or gross mass effect. 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 There are patchy confluent areas of low-density involving white matter of both cerebral hemispheres and periventricular regions, likely representing chronic small vessel ischemic disease and leukoaraiosis. The brain parenchymal volume appears appropriate for patient's age. There is normal tarango-white matter distinction. There is no significant midline shift or herniation. There is no evidence of hydrocephalus. The basal cisterns are unremarkable. The skull, extracranial soft tissue, and orbits are unremarkable. There is mild mucosal thickening involving ethmoid sinus and left maxillary sinus. Temporal bones show no significant abnormality. IMPRESSION: 1: There is no CT evidence of acute intracranial process. 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 3: Mild paranasal sinus disease. Dictated on workstation # [id number] Dict: 07/26/22 1139 Trans: 07/26/22 1149 [facility] [id number] Interpreted by: ALISON CHAPMAN MD Electronically signed by: Reviewed: Reviewed by Me Departure Impression Primary Impression: Near syncope Additional Impression: Hypertension Qualified Codes: I10 - Essential (primary) hypertension Disposition: HOME, SELF-CARE Condition: Stable Departure-Patient Inst. Decision time for Depature: 12:00 Referrals: ANGELA MARTINEZ MD (PCP) Primary Care Physician Patient Instructions: High Blood Pressure ED, Near Fainting (DC) Add. Discharge Instructions: Try to drink more water and stay well hydrated. Follow up with clinic for continued concerns and to continue to work on better control of your blood pressure. SALINA LEIGH MD Jul 26, 2022 11:17
[2022-07-26 11:35] LABS: BILIRUBIN,URINE NEGATIVE (NEGATIVE); COLOR,URINE YELLOW; GLUCOSE, URINE (UA) NEGATIVE (NEGATIVE); KETONES,URINE NEGATIVE (NEGATIVE); LEUKOCYTE ESTERASE ,URINE NEGATIVE (NEGATIVE); NITRITE,URINE NEGATIVE (NEGATIVE); PH,URINE 6.5 (5-9); PROTEIN,URINE TRACE (NEGATIVE)
[2022-07-26 11:49] LABS: BILIRUBIN,TOTAL 0.2 MG/DL (0.1-1.0); CALCIUM 9.1 MG/DL (8.5-10.1); CREATININE SERUM 1.66 MG/DL (0.60-1.30); MAGNESIUM 2.2 MG/DL (1.6-2.4); POTASSIUM 3.7 MMOL/L (3.6-5.0)
[2022-07-26 11:50] LABS: ALBUMIN 4.1 GM/DL (3.2-4.5); TOTAL PROTEIN 7.1 GM/DL (6.4-8.2)
--- NOTE | 2022-07-26 11:50 | Diagnostic Imaging Report ---
CLINICAL INDICATIONS: Patient with onset of generalized weakness and hypertension. EXAM: Axial CT scan of the brain performed without IV contrast. Auto Exposure Controls were utilized during the CT exam to meet ALARA standards for radiation dose reduction. COMPARISON: CT scan of the head and cervical spine without contrast dated 02/17/2019. FINDINGS: There is no evidence of acute cerebral infarct, intracranial hemorrhage, or gross mass effect. 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 There are patchy confluent areas of low-density involving white matter of both cerebral hemispheres and periventricular regions, likely representing chronic small vessel ischemic disease and leukoaraiosis. The brain parenchymal volume appears appropriate for patient's age. There is normal tarango-white matter distinction. There is no significant midline shift or herniation. There is no evidence of hydrocephalus. The basal cisterns are unremarkable. The skull, extracranial soft tissue, and orbits are unremarkable. There is mild mucosal thickening involving ethmoid sinus and left maxillary sinus. Temporal bones show no significant abnormality. IMPRESSION: 1: There is no CT evidence of acute intracranial process. 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 3: Mild paranasal sinus disease. Dictated by: Dictated on workstation # [id number]
[2022-07-26 11:53] LABS: BACTERIA,URINE NEGATIVE /HPF; CLARITY,URINE CLEAR; SQUAMOUS EPITHELIAL CELL,UR 0-2 /HPF; WBC,URINE 0-2 /HPF
--- NOTE | 2022-07-26 11:54 | Diagnostic Imaging Report ---
INDICATION: Generalized weakness and hypertension. Heart size at the upper limits of normal. Pulmonary vascularity is unremarkable. No pneumothorax or consolidation. There may be slight left basilar atelectasis or scarring. IMPRESSION: Borderline cardiomegaly without other evidence of acute abnormality. Dictated by: Dictated on workstation # [id number]
[2022-07-26 11:57] LABS: PROTHROMBIN TIME PATIENT 13.1 SEC (12.2-14.7)
[2022-07-26 12:06] VITALS: BP 165/65
== END 2022-07-26 12:06 | disposition home or self-care (01) ==
LOC: EDUNIT# 11:01 → ER FS 11:02
DX: I10 Essential (primary) hypertension (principal); R55 Syncope and collapse; R79.89 Other specified abnormal findings of blood chemistry
CPT/HCPCS: 36415; 70450; 71045; 80053; 81000; 83690; 83735; 83880; 84484; 85025; 85610; 85730; 93005; 93041